=== PATIENT | female | born 1970 | race Caucasian/White ===

== ENCOUNTER → 2019-04-06 14:09 | Outpatient (BNVA) | payer MEDICAID, SELFPAY | PROVIDERS: Family Provider Family Medicine; PCP Family Medicine; Visit Provider Social Worker Clinical | DX: F43.12 Post-traumatic stress disorder, chronic (principal); F40.01 Agoraphobia with panic disorder; F25.0 Schizoaffective disorder, bipolar type | CPT/HCPCS: 90834; 90839 ==

== ENCOUNTER → 2019-04-13 14:44 | Outpatient (BNVA) | payer MEDICAID, SELFPAY | PROVIDERS: Family Provider Family Medicine; PCP Family Medicine; Visit Provider Social Worker Clinical | DX: F43.12 Post-traumatic stress disorder, chronic (principal); F40.01 Agoraphobia with panic disorder; F25.0 Schizoaffective disorder, bipolar type | CPT/HCPCS: 90834 ==

== ENCOUNTER → 2019-04-21 09:43 | Outpatient (BNVA) | payer MEDICAID, SELFPAY | PROVIDERS: Family Provider Family Medicine; PCP Family Medicine; Visit Provider Nurse Practitioner Psychiatric/Mental Health | DX: F25.0 Schizoaffective disorder, bipolar type (principal); F60.3 Borderline personality disorder; F40.01 Agoraphobia with panic disorder; F43.12 Post-traumatic stress disorder, chronic; Z87.820 Personal history of traumatic brain injury | CPT/HCPCS: 99213 ==

== ENCOUNTER → 2019-05-04 14:04 | Outpatient (BNVA) | payer MEDICAID, SELFPAY | PROVIDERS: Family Provider Family Medicine; PCP Family Medicine; Visit Provider Social Worker Clinical | DX: F43.12 Post-traumatic stress disorder, chronic (principal); F40.01 Agoraphobia with panic disorder; F25.0 Schizoaffective disorder, bipolar type | CPT/HCPCS: 90834 ==

== ENCOUNTER → 2019-05-10 10:37 | Outpatient (BNVA) | payer MEDICAID, SELFPAY | PROVIDERS: Family Provider Family Medicine; PCP Family Medicine; Visit Provider Social Worker Clinical | DX: F43.12 Post-traumatic stress disorder, chronic (principal); F40.01 Agoraphobia with panic disorder; F25.0 Schizoaffective disorder, bipolar type | CPT/HCPCS: 90834; 90839 ==

== ENCOUNTER → 2019-05-19 12:51 | Outpatient (BNVA) | payer MEDICAID, SELFPAY | PROVIDERS: Family Provider Family Medicine; PCP Family Medicine; Visit Provider Counselor Professional | DX: F43.12 Post-traumatic stress disorder, chronic (principal); F40.01 Agoraphobia with panic disorder; F25.0 Schizoaffective disorder, bipolar type | CPT/HCPCS: 90834 ==

== ENCOUNTER → 2019-06-16 13:00 | Outpatient (BNVA) | payer MEDICAID, SELFPAY | PROVIDERS: Family Provider Family Medicine; PCP Nurse Practitioner; Visit Provider Counselor Professional | DX: F43.12 Post-traumatic stress disorder, chronic (principal); F40.01 Agoraphobia with panic disorder; F60.3 Borderline personality disorder; F25.0 Schizoaffective disorder, bipolar type; Z87.820 Personal history of traumatic brain injury | CPT/HCPCS: 90834 ==

== ENCOUNTER → 2019-06-30 08:31 | Outpatient (BNVA) | payer MEDICAID, SELFPAY | PROVIDERS: Family Provider Family Medicine; PCP Nurse Practitioner; Visit Provider Counselor Professional | DX: F40.01 Agoraphobia with panic disorder (principal); F43.12 Post-traumatic stress disorder, chronic; F60.3 Borderline personality disorder; F25.0 Schizoaffective disorder, bipolar type | CPT/HCPCS: 90834 ==

== ENCOUNTER → 2019-07-13 08:46 | Outpatient (BNVA) | payer MEDICAID, SELFPAY | PROVIDERS: Family Provider Family Medicine; PCP Nurse Practitioner; Visit Provider Counselor Professional | DX: F43.12 Post-traumatic stress disorder, chronic (principal); F41.0 Panic disorder [episodic paroxysmal anxiety]; F60.3 Borderline personality disorder; F25.0 Schizoaffective disorder, bipolar type | CPT/HCPCS: 90834 ==

== ENCOUNTER → 2019-07-21 13:00 | Outpatient (BNVA) | payer MEDICAID, SELFPAY | PROVIDERS: Family Provider Family Medicine; PCP Nurse Practitioner; Visit Provider Counselor Professional | DX: F60.3 Borderline personality disorder (principal); F40.01 Agoraphobia with panic disorder; F43.12 Post-traumatic stress disorder, chronic; F25.0 Schizoaffective disorder, bipolar type | CPT/HCPCS: 90832 ==

== ENCOUNTER → 2019-08-11 07:48 | Outpatient (BNVA) | payer MEDICAID, SELFPAY | PROVIDERS: Family Provider Family Medicine; Visit Provider Counselor Professional | DX: F60.3 Borderline personality disorder (principal); F40.01 Agoraphobia with panic disorder; F43.12 Post-traumatic stress disorder, chronic; Z87.820 Personal history of traumatic brain injury; Z72.0 Tobacco use | CPT/HCPCS: 90832 ==

== ENCOUNTER → 2019-08-25 08:01 | Outpatient (BNVA) | payer MEDICAID, SELFPAY | PROVIDERS: Family Provider Family Medicine; Visit Provider Counselor Professional | DX: F60.3 Borderline personality disorder (principal); F40.01 Agoraphobia with panic disorder; F43.12 Post-traumatic stress disorder, chronic; Z87.820 Personal history of traumatic brain injury; Z72.0 Tobacco use | CPT/HCPCS: 90834 ==

== ENCOUNTER → 2019-09-06 08:07 | Outpatient (BNVA) | payer MEDICAID, SELFPAY | PROVIDERS: Family Provider Family Medicine; Visit Provider Counselor Professional | DX: F60.3 Borderline personality disorder (principal); F40.01 Agoraphobia with panic disorder; F43.12 Post-traumatic stress disorder, chronic; Z87.820 Personal history of traumatic brain injury; Z72.0 Tobacco use | CPT/HCPCS: 90834 ==

== ENCOUNTER → 2019-09-13 08:09 | Outpatient (BNVA) | payer MEDICAID, SELFPAY | PROVIDERS: Family Provider Family Medicine; Visit Provider Nurse Practitioner Psychiatric/Mental Health | DX: F25.0 Schizoaffective disorder, bipolar type (principal); F60.3 Borderline personality disorder; F40.01 Agoraphobia with panic disorder; F43.12 Post-traumatic stress disorder, chronic; Z87.820 Personal history of traumatic brain injury; F41.1 Generalized anxiety disorder | CPT/HCPCS: 99214 ==

== ENCOUNTER 2019-09-21 14:47 | Outpatient (CLI) | payer MEDICAID, SELFPAY ==
--- NOTE | 2019-09-21 14:53 | MM_ITS ---
WS: [id number] BILATERAL DIGITAL SCREENING MAMMOGRAPHY WITH CAD CLINICAL INFORMATION: SCREENING HISTORY: Screening mammogram. No current complaints. COMPARISON: September 21, 2019 TECHNIQUE: Bilateral CC and MLO views. FINDINGS: Scattered fibroglandular densities bilaterally. No suspicious focal mass, asymmetry, calcifications, or architectural distortion. No evidence of malignancy. MM/[id number] IMPRESSION: BI-RADS: 1-Negative FOLLOW UP: 1 Year Follow-up Recommend return to annual screening mammography.
== END 2019-09-21 14:48 | disposition home or self-care (01) ==
LOC: RADSHAW 14:51
PROVIDERS: PCP Family Medicine; Visit Provider Nurse Practitioner
DX: F25.0 Schizoaffective disorder, bipolar type (principal); F60.3 Borderline personality disorder; F40.01 Agoraphobia with panic disorder; F43.12 Post-traumatic stress disorder, chronic; Z87.820 Personal history of traumatic brain injury
CPT/HCPCS: 90834; 77067; 99213

== ENCOUNTER → 2019-10-05 08:19 | Outpatient (BNVA) | payer MEDICAID, SELFPAY | PROVIDERS: PCP Family Medicine; Visit Provider Counselor Professional | DX: F25.0 Schizoaffective disorder, bipolar type (principal); F60.3 Borderline personality disorder; F40.01 Agoraphobia with panic disorder; F43.12 Post-traumatic stress disorder, chronic; Z87.820 Personal history of traumatic brain injury | CPT/HCPCS: 90834 ==

== ENCOUNTER → 2019-10-16 07:41 | Outpatient (BNVA) | payer MEDICAID, SELFPAY | PROVIDERS: PCP Family Medicine; Visit Provider Nurse Practitioner Psychiatric/Mental Health | DX: F25.0 Schizoaffective disorder, bipolar type (principal); F60.3 Borderline personality disorder; F40.01 Agoraphobia with panic disorder; F43.12 Post-traumatic stress disorder, chronic; Z87.820 Personal history of traumatic brain injury | CPT/HCPCS: 99214 ==

== ENCOUNTER → 2019-11-03 08:00 | Outpatient (BNVA) | payer MEDICAID, SELFPAY | PROVIDERS: PCP Family Medicine; Visit Provider Counselor Professional | DX: F25.0 Schizoaffective disorder, bipolar type (principal); F40.01 Agoraphobia with panic disorder; F60.3 Borderline personality disorder; F43.12 Post-traumatic stress disorder, chronic | CPT/HCPCS: 90832 ==

== ENCOUNTER → 2019-11-14 09:11 | Outpatient (BNVA) | payer MEDICAID, SELFPAY | PROVIDERS: PCP Family Medicine; Visit Provider Nurse Practitioner Psychiatric/Mental Health | DX: F25.0 Schizoaffective disorder, bipolar type (principal); F60.3 Borderline personality disorder; F40.01 Agoraphobia with panic disorder; F17.210 Nicotine dependence, cigarettes, uncomplicated; F43.12 Post-traumatic stress disorder, chronic | CPT/HCPCS: 99213 ==

== ENCOUNTER → 2019-11-16 08:31 | Outpatient (BNVA) | payer MEDICAID, SELFPAY | PROVIDERS: PCP Family Medicine; Visit Provider Counselor Professional | DX: F25.0 Schizoaffective disorder, bipolar type (principal); F40.01 Agoraphobia with panic disorder; F60.3 Borderline personality disorder; F43.12 Post-traumatic stress disorder, chronic; Z87.820 Personal history of traumatic brain injury | CPT/HCPCS: 90834 ==

== ENCOUNTER → 2019-11-17 09:28 | Outpatient (BNVA) | payer MEDICAID, SELFPAY | PROVIDERS: PCP Family Medicine; Visit Provider Family Medicine | DX: L30.4 Erythema intertrigo (principal); E11.69 Type 2 diabetes mellitus with other specified complication; Z12.11 Encounter for screening for malignant neoplasm of colon; Z01.419 Encounter for gynecological examination (general) (routine) without abnormal findings; E78.5 Hyperlipidemia, unspecified; Z68.36 Body mass index [BMI] 36.0-36.9, adult; F17.210 Nicotine dependence, cigarettes, uncomplicated | CPT/HCPCS: 80053; 80061; 82043; 83036; 85007; 85027; 87086; 88175 ==

== ENCOUNTER → 2019-12-01 09:04 | Outpatient (BNVA) | payer MEDICAID, SELFPAY ==
[2019-11-23 15:23] VITALS: BP 125/81; BMI 36.2
== END ==
PROVIDERS: PCP Family Medicine; Visit Provider Counselor Professional
DX: F25.0 Schizoaffective disorder, bipolar type (principal); F40.01 Agoraphobia with panic disorder; F60.3 Borderline personality disorder; F43.12 Post-traumatic stress disorder, chronic
CPT/HCPCS: 90832

== ENCOUNTER → 2019-12-15 08:58 | Outpatient (BNVA) | payer MEDICAID, SELFPAY ==
[2019-11-23 15:23] VITALS: BP 125/81; BMI 36.2
== END ==
PROVIDERS: PCP Family Medicine; Visit Provider Surgery
DX: Z11.59 Encounter for screening for other viral diseases (principal)
CPT/HCPCS: 87635

== ENCOUNTER → 2019-12-26 08:28 | Outpatient (BNVA) | payer MEDICAID, SELFPAY ==
[2019-12-25 12:36] VITALS: BP 125/81; BMI 36.2
== END ==
PROVIDERS: PCP Family Medicine; Visit Provider Nurse Practitioner Psychiatric/Mental Health
DX: F25.0 Schizoaffective disorder, bipolar type (principal); F60.3 Borderline personality disorder; F40.01 Agoraphobia with panic disorder; F17.210 Nicotine dependence, cigarettes, uncomplicated; F43.12 Post-traumatic stress disorder, chronic; Z87.820 Personal history of traumatic brain injury
CPT/HCPCS: 99213

== ENCOUNTER → 2019-12-29 08:42 | Outpatient (BNVA) | payer MEDICAID, SELFPAY ==
[2019-12-25 12:36] VITALS: BP 125/81; BMI 36.2
== END ==
PROVIDERS: PCP Family Medicine; Visit Provider Counselor Professional
DX: F25.0 Schizoaffective disorder, bipolar type (principal); F60.3 Borderline personality disorder; F40.01 Agoraphobia with panic disorder; F43.12 Post-traumatic stress disorder, chronic; Z87.820 Personal history of traumatic brain injury
CPT/HCPCS: 90832

== ENCOUNTER → 2020-01-11 08:00 | Outpatient (BNVA) | payer MEDICAID, SELFPAY ==
[2019-12-25 12:36] VITALS: BP 125/81; BMI 36.2
== END ==
PROVIDERS: PCP Family Medicine; Visit Provider Counselor Professional
DX: F60.3 Borderline personality disorder (principal); F40.01 Agoraphobia with panic disorder; F25.0 Schizoaffective disorder, bipolar type; F43.12 Post-traumatic stress disorder, chronic
CPT/HCPCS: 90832; 90834

== ENCOUNTER → 2020-02-06 08:07 | Outpatient (BNVA) | payer MEDICAID, SELFPAY ==
[2019-12-25 12:36] VITALS: BP 125/81; BMI 36.2
== END ==
PROVIDERS: PCP Family Medicine; Visit Provider Counselor Professional
DX: F60.3 Borderline personality disorder (principal); F25.0 Schizoaffective disorder, bipolar type; F40.01 Agoraphobia with panic disorder; F43.12 Post-traumatic stress disorder, chronic
CPT/HCPCS: 90834

== ENCOUNTER → 2020-02-07 09:10 | Outpatient (BNVA) | payer MEDICAID, SELFPAY ==
[2019-12-25 12:36] VITALS: BP 125/81; BMI 36.2
== END ==
PROVIDERS: PCP Family Medicine; Visit Provider Nurse Practitioner Psychiatric/Mental Health
DX: F25.0 Schizoaffective disorder, bipolar type (principal); F60.3 Borderline personality disorder; F40.01 Agoraphobia with panic disorder; F17.210 Nicotine dependence, cigarettes, uncomplicated; F43.12 Post-traumatic stress disorder, chronic; Z87.820 Personal history of traumatic brain injury
CPT/HCPCS: 99213

== ENCOUNTER → 2020-03-07 07:57 | Outpatient (BNVA) | payer MEDICAID, SELFPAY ==
[2019-12-25 12:36] VITALS: BP 125/81; BMI 36.2
== END ==
PROVIDERS: PCP Family Medicine; Visit Provider Counselor Professional
DX: F25.0 Schizoaffective disorder, bipolar type (principal); F60.3 Borderline personality disorder; F40.01 Agoraphobia with panic disorder; F43.12 Post-traumatic stress disorder, chronic
CPT/HCPCS: 90832

== ENCOUNTER → 2020-03-20 08:01 | Outpatient (BNVA) | payer MEDICAID, SELFPAY ==
[2019-12-25 12:36] VITALS: BP 125/81; BMI 36.2
== END ==
PROVIDERS: PCP Family Medicine; Visit Provider Nurse Practitioner Psychiatric/Mental Health
DX: F25.0 Schizoaffective disorder, bipolar type (principal); F60.3 Borderline personality disorder; F40.01 Agoraphobia with panic disorder; F17.210 Nicotine dependence, cigarettes, uncomplicated; F43.12 Post-traumatic stress disorder, chronic; Z87.820 Personal history of traumatic brain injury; F41.1 Generalized anxiety disorder
CPT/HCPCS: 99213

== ENCOUNTER → 2020-03-22 09:04 | Outpatient (BNVA) | payer MEDICAID, SELFPAY ==
[2019-12-25 12:36] VITALS: BP 125/81; BMI 36.2
== END ==
PROVIDERS: PCP Family Medicine; Visit Provider Counselor Professional
DX: F25.0 Schizoaffective disorder, bipolar type (principal); F60.3 Borderline personality disorder; F40.01 Agoraphobia with panic disorder; F43.12 Post-traumatic stress disorder, chronic; Z87.820 Personal history of traumatic brain injury
CPT/HCPCS: 90834

== ENCOUNTER → 2020-04-10 08:30 | Outpatient (BNVA) | payer MEDICAID, SELFPAY ==
[2019-12-25 12:36] VITALS: BP 125/81; BMI 36.2
== END ==
PROVIDERS: PCP Family Medicine; Visit Provider Counselor Professional
DX: F25.0 Schizoaffective disorder, bipolar type (principal); F60.3 Borderline personality disorder; F40.01 Agoraphobia with panic disorder; F43.12 Post-traumatic stress disorder, chronic; Z87.820 Personal history of traumatic brain injury
CPT/HCPCS: 90834

== ENCOUNTER → 2020-04-15 07:34 | Outpatient (BNVA) | payer MEDICAID, SELFPAY ==
[2019-12-25 12:36] VITALS: BP 125/81; BMI 36.2
== END ==
PROVIDERS: PCP Family Medicine; Visit Provider Nurse Practitioner Psychiatric/Mental Health
DX: F25.0 Schizoaffective disorder, bipolar type (principal); F60.3 Borderline personality disorder; F40.01 Agoraphobia with panic disorder; F43.12 Post-traumatic stress disorder, chronic; Z87.820 Personal history of traumatic brain injury; F17.210 Nicotine dependence, cigarettes, uncomplicated
CPT/HCPCS: 99214

== ENCOUNTER → 2020-05-03 08:13 | Outpatient (BNVA) | payer MEDICAID, SELFPAY ==
[2019-12-25 12:36] VITALS: BP 125/81; BMI 36.2
== END ==
PROVIDERS: PCP Family Medicine; Visit Provider Nurse Practitioner Psychiatric/Mental Health
DX: F25.0 Schizoaffective disorder, bipolar type (principal); F60.3 Borderline personality disorder; F40.01 Agoraphobia with panic disorder; F43.12 Post-traumatic stress disorder, chronic; Z87.820 Personal history of traumatic brain injury; F17.210 Nicotine dependence, cigarettes, uncomplicated; F41.1 Generalized anxiety disorder
CPT/HCPCS: 99214

== ENCOUNTER → 2020-05-09 09:06 | Outpatient (BNVA) | payer MEDICAID, SELFPAY ==
[2019-12-25 12:36] VITALS: BP 125/81; BMI 36.2
== END ==
PROVIDERS: PCP Family Medicine; Visit Provider Counselor Professional
DX: F25.0 Schizoaffective disorder, bipolar type (principal); F60.3 Borderline personality disorder; F40.01 Agoraphobia with panic disorder; F43.12 Post-traumatic stress disorder, chronic; Z87.820 Personal history of traumatic brain injury
CPT/HCPCS: 90832

== ENCOUNTER → 2020-05-22 08:31 | Outpatient (BNVA) | payer MEDICAID, SELFPAY ==
[2019-12-25 12:36] VITALS: BP 125/81; BMI 36.2
== END ==
PROVIDERS: PCP Family Medicine; Visit Provider Nurse Practitioner Psychiatric/Mental Health
DX: F25.0 Schizoaffective disorder, bipolar type (principal); F60.3 Borderline personality disorder; F40.01 Agoraphobia with panic disorder; F17.210 Nicotine dependence, cigarettes, uncomplicated; F43.12 Post-traumatic stress disorder, chronic; Z87.820 Personal history of traumatic brain injury
CPT/HCPCS: 99214

== ENCOUNTER → 2020-05-29 15:22 | Outpatient (BNVA) | payer MEDICAID, SELFPAY ==
[2019-12-25 12:36] VITALS: BP 125/81; BMI 36.2
== END ==
PROVIDERS: PCP Family Medicine; Visit Provider Family Medicine
DX: E11.69 Type 2 diabetes mellitus with other specified complication (principal); M25.511 Pain in right shoulder
CPT/HCPCS: 80053; 80061; 81015; 83036; 85025

== ENCOUNTER → 2020-06-06 07:52 | Outpatient (BNVA) | payer MEDICAID, SELFPAY ==
[2019-12-25 12:36] VITALS: BP 125/81; BMI 36.2
== END ==
PROVIDERS: PCP Family Medicine; Visit Provider Counselor Professional
DX: F60.3 Borderline personality disorder (principal); F25.0 Schizoaffective disorder, bipolar type; F40.01 Agoraphobia with panic disorder; F43.12 Post-traumatic stress disorder, chronic
CPT/HCPCS: 90832

== ENCOUNTER → 2020-06-07 09:19 | Outpatient (BNVA) | payer MEDICAID, SELFPAY ==
[2019-12-25 12:36] VITALS: BP 125/81; BMI 36.2
== END ==
PROVIDERS: PCP Family Medicine; Visit Provider Family Medicine
DX: E83.52 Hypercalcemia (principal)
CPT/HCPCS: 82310; 83970

== ENCOUNTER → 2020-06-20 08:04 | Outpatient (BNVA) | payer MEDICAID, SELFPAY ==
[2019-12-25 12:36] VITALS: BP 125/81; BMI 36.2
== END ==
PROVIDERS: PCP Family Medicine; Visit Provider Nurse Practitioner Psychiatric/Mental Health
DX: F25.0 Schizoaffective disorder, bipolar type (principal); F60.3 Borderline personality disorder; F17.210 Nicotine dependence, cigarettes, uncomplicated; F40.01 Agoraphobia with panic disorder; F43.12 Post-traumatic stress disorder, chronic; Z87.820 Personal history of traumatic brain injury
CPT/HCPCS: 99214

== ENCOUNTER 2020-06-21 10:44 | Outpatient (CLI) | payer MEDICAID, SELFPAY ==
[2019-12-25 12:36] VITALS: BP 125/81; BMI 36.2
[2020-06-21 12:15] LABS: Calcium 11.2 mg/dL (8.5-10.5); Parathyroid Hormone 90.2 pg/mL (15-65)
== END 2020-06-21 10:45 | disposition home or self-care (01) ==
PROVIDERS: PCP Family Medicine; Visit Provider Internal Medicine
DX: E11.69 Type 2 diabetes mellitus with other specified complication (principal); E21.3 Hyperparathyroidism, unspecified; E34.9 Endocrine disorder, unspecified; E83.52 Hypercalcemia
CPT/HCPCS: 36415; 82310; 83970; 99204

== ENCOUNTER 2020-06-23 10:03 | Outpatient (CLI) | payer MEDICAID, SELFPAY ==
[2019-12-25 12:36] VITALS: BP 125/81; BMI 36.2
[2020-06-23 12:09] LABS: Urine Creatinine 52 mg/dL (28-217)
[2020-06-23 12:42] LABS: Total Volume Urine 2925 ml
[2020-06-23 15:30] LABS: Total Volume Urine 2925 ml
[2020-06-23 15:32] LABS: Calcium 24 Hour Urine 99 mg/24hr (100-300); Urine Calcium Result 3.4 mg/dL
== END 2020-06-23 10:04 | disposition home or self-care (01) ==
LOC: LAB 10:12
PROVIDERS: PCP Family Medicine; Visit Provider Internal Medicine
DX: E83.52 Hypercalcemia (principal)
CPT/HCPCS: 82340; 82570

== ENCOUNTER 2020-06-26 14:37 | Outpatient (CLI) | payer MEDICAID, SELFPAY ==
[2019-12-25 12:36] VITALS: BP 125/81; BMI 36.2
--- NOTE | 2020-06-26 15:15 | XR_ITS ---
WS: [id number] SCREENING DEXA SCAN [employer] CLINICAL INFORMATION: hyperparathyroidism r/o osteoporosis COMPARISON: None. FINDINGS: The L1-L4 bone mineral density measures 0.982 g/cm2. This corresponds to a T score score of -1.6 and Z score of -2.4. Left femoral neck bone mineral density measures 0.890 g/cm2. This corresponds to a T score of -0.9 an d Z score of -1.3. Right femoral neck bone mineral density measures 0.942 g/cm2. This corresponds to a T score -0.5of an d Z score of -0.9. Mean femoral neck bone mineral density measures 0.916 g/cm2. This corresponds to a T score of -0.7 an d Z score of -1.1. XR/XR DEXA axial skeleton* [id number] IMPRESSION: Osteopenia Patient's FRAX calculated 10 year probability for major osteoporotic fracture i s 4.3 % and osteoporotic hip fracture is 0.5%.
== END 2020-06-26 14:38 | disposition home or self-care (01) ==
LOC: RADWPI 14:37
PROVIDERS: PCP Family Medicine; Visit Provider Internal Medicine
DX: E21.3 Hyperparathyroidism, unspecified (principal); M85.80 Other specified disorders of bone density and structure, unspecified site
CPT/HCPCS: 77080

== ENCOUNTER → 2020-06-28 08:09 | Outpatient (BNVA) | payer MEDICAID, SELFPAY ==
[2019-12-25 12:36] VITALS: BP 125/81; BMI 36.2
== END ==
PROVIDERS: PCP Family Medicine; Visit Provider Counselor Professional
DX: F25.0 Schizoaffective disorder, bipolar type (principal); F60.3 Borderline personality disorder; F40.01 Agoraphobia with panic disorder; F43.12 Post-traumatic stress disorder, chronic; Z87.820 Personal history of traumatic brain injury
CPT/HCPCS: 90832

== ENCOUNTER → 2020-07-18 08:54 | Outpatient (BNVA) | payer MEDICAID, SELFPAY ==
[2019-12-25 12:36] VITALS: BP 125/81; BMI 36.2
== END ==
PROVIDERS: PCP Family Medicine; Visit Provider Counselor Professional
DX: F25.0 Schizoaffective disorder, bipolar type (principal); F60.3 Borderline personality disorder; F40.01 Agoraphobia with panic disorder; F43.12 Post-traumatic stress disorder, chronic; Z87.820 Personal history of traumatic brain injury; F17.210 Nicotine dependence, cigarettes, uncomplicated
CPT/HCPCS: 90832

== ENCOUNTER → 2020-07-24 07:54 | Outpatient (BNVA) | payer MEDICAID, SELFPAY ==
[2019-12-25 12:36] VITALS: BP 125/81; BMI 36.2
== END ==
PROVIDERS: PCP Family Medicine; Visit Provider Nurse Practitioner Psychiatric/Mental Health
DX: F25.0 Schizoaffective disorder, bipolar type (principal); F60.3 Borderline personality disorder; F40.01 Agoraphobia with panic disorder; F17.210 Nicotine dependence, cigarettes, uncomplicated; F43.12 Post-traumatic stress disorder, chronic
CPT/HCPCS: 99214

== ENCOUNTER → 2020-08-09 09:12 | Outpatient (BNVA) | payer MEDICAID, SELFPAY ==
[2019-12-25 12:36] VITALS: BP 125/81; BMI 36.2
== END ==
PROVIDERS: PCP Family Medicine; Visit Provider Family Medicine
DX: E78.5 Hyperlipidemia, unspecified (principal)
CPT/HCPCS: 80053

== ENCOUNTER → 2020-08-23 08:12 | Outpatient (BNVA) | payer MEDICAID, SELFPAY ==
[2019-12-25 12:36] VITALS: BP 125/81; BMI 36.2
== END ==
PROVIDERS: PCP Family Medicine; Visit Provider Counselor Professional
DX: F25.0 Schizoaffective disorder, bipolar type (principal); F43.12 Post-traumatic stress disorder, chronic; F60.3 Borderline personality disorder; F40.01 Agoraphobia with panic disorder
CPT/HCPCS: 90832

== ENCOUNTER → 2020-09-04 07:49 | Outpatient (BNVA) | payer MEDICAID, SELFPAY ==
[2019-12-25 12:36] VITALS: BP 125/81; BMI 36.2
== END ==
PROVIDERS: PCP Family Medicine; Visit Provider Nurse Practitioner Psychiatric/Mental Health
DX: F25.0 Schizoaffective disorder, bipolar type (principal); F60.3 Borderline personality disorder; F17.210 Nicotine dependence, cigarettes, uncomplicated; F40.01 Agoraphobia with panic disorder; F43.12 Post-traumatic stress disorder, chronic; Z87.820 Personal history of traumatic brain injury
CPT/HCPCS: 99214

== ENCOUNTER → 2020-09-12 08:21 | Outpatient (BNVA) | payer MEDICAID, SELFPAY ==
[2019-12-25 12:36] VITALS: BP 125/81; BMI 36.2
== END ==
PROVIDERS: PCP Family Medicine; Visit Provider Counselor Professional
DX: F25.0 Schizoaffective disorder, bipolar type (principal); F40.01 Agoraphobia with panic disorder; F60.3 Borderline personality disorder; F43.12 Post-traumatic stress disorder, chronic
CPT/HCPCS: 90832

== ENCOUNTER → 2020-10-01 11:17 | Outpatient (BNVA) | payer OTHER, SELFPAY ==
[2019-12-25 12:36] VITALS: BP 125/81; BMI 36.2
== END ==
PROVIDERS: PCP Family Medicine; Visit Provider Nurse Practitioner Psychiatric/Mental Health
DX: F60.3 Borderline personality disorder (principal); Z79.899 Other long term (current) drug therapy
CPT/HCPCS: 80061; 83036

== ENCOUNTER → 2020-10-10 11:13 | Outpatient (BNVA) | payer MEDICAID, SELFPAY ==
[2020-10-03 14:41] VITALS: BP 110/67; BMI 40.1
== END ==
PROVIDERS: PCP Family Medicine; Visit Provider Nurse Practitioner Psychiatric/Mental Health
DX: F25.0 Schizoaffective disorder, bipolar type (principal); F60.3 Borderline personality disorder; F40.01 Agoraphobia with panic disorder; F17.210 Nicotine dependence, cigarettes, uncomplicated; F43.12 Post-traumatic stress disorder, chronic; Z87.820 Personal history of traumatic brain injury
CPT/HCPCS: 99214

== ENCOUNTER 2020-10-15 14:39 | Outpatient (CLI) | payer MEDICAID, SELFPAY ==
[2019-12-25 12:36] VITALS: BP 125/81; BMI 36.2
[2020-10-03 14:41] VITALS: BP 110/67; BMI 40.1
--- NOTE | 2020-10-15 14:45 | MM_ITS ---
WS: [id number] BILATERAL DIGITAL SCREENING MAMMOGRAPHY WITH CAD CLINICAL INFORMATION: SCREENING HISTORY: Screening mammogram. No current complaints. COMPARISON: September 21, 2019 TECHNIQUE: Bilateral CC and MLO views. FINDINGS: Scattered fibroglandular densities bilaterally. A few punctate calcifications left breast. No suspici ous focal mass, asymmetry, calcifications, or architectural distortion. No evidence of malignancy. MM/[id number] IMPRESSION: BI-RADS: 2-Benign FOLLOW UP: 1 Year Follow-up Recommend return to annual screening mammography.
== END 2020-10-15 14:40 | disposition home or self-care (01) ==
LOC: RADSHAW 14:44
PROVIDERS: PCP Family Medicine; Visit Provider Family Medicine
DX: Z12.31 Encounter for screening mammogram for malignant neoplasm of breast (principal)
CPT/HCPCS: 77067

== ENCOUNTER → 2020-10-21 07:29 | Outpatient (BNVA) | payer MEDICAID, SELFPAY ==
[2020-10-03 14:41] VITALS: BP 110/67; BMI 40.1
== END ==
PROVIDERS: PCP Family Medicine; Visit Provider Counselor Professional
DX: F25.0 Schizoaffective disorder, bipolar type (principal); F60.3 Borderline personality disorder; F40.01 Agoraphobia with panic disorder; F43.12 Post-traumatic stress disorder, chronic
CPT/HCPCS: 90832

== ENCOUNTER → 2020-11-21 09:10 | Outpatient (BNVA) | payer MEDICAID, SELFPAY ==
[2020-10-03 14:41] VITALS: BP 110/67; BMI 40.1
== END ==
PROVIDERS: PCP Family Medicine; Visit Provider Nurse Practitioner Psychiatric/Mental Health
DX: F25.0 Schizoaffective disorder, bipolar type (principal); F60.3 Borderline personality disorder; F40.01 Agoraphobia with panic disorder; F17.210 Nicotine dependence, cigarettes, uncomplicated; F43.12 Post-traumatic stress disorder, chronic; Z87.820 Personal history of traumatic brain injury
CPT/HCPCS: 99214

== ENCOUNTER → 2020-12-02 08:13 | Outpatient (BNVA) | payer MEDICAID, SELFPAY ==
[2020-10-03 14:41] VITALS: BP 110/67; BMI 40.1
== END ==
PROVIDERS: PCP Family Medicine; Visit Provider Counselor Professional
DX: F25.0 Schizoaffective disorder, bipolar type (principal); F60.3 Borderline personality disorder; F40.01 Agoraphobia with panic disorder; F43.12 Post-traumatic stress disorder, chronic; Z87.820 Personal history of traumatic brain injury; F17.210 Nicotine dependence, cigarettes, uncomplicated
CPT/HCPCS: 90832

== ENCOUNTER → 2020-12-26 07:25 | Outpatient (BNVA) | payer MEDICAID, SELFPAY ==
[2020-10-03 14:41] VITALS: BP 110/67; BMI 40.1
== END ==
PROVIDERS: PCP Family Medicine; Visit Provider Counselor Professional
DX: F25.0 Schizoaffective disorder, bipolar type (principal); F60.3 Borderline personality disorder; F40.10 Social phobia, unspecified; F43.12 Post-traumatic stress disorder, chronic; Z87.820 Personal history of traumatic brain injury; F17.210 Nicotine dependence, cigarettes, uncomplicated
CPT/HCPCS: 90832

== ENCOUNTER → 2020-12-27 13:47 | Outpatient (BNVA) | payer MEDICAID, SELFPAY ==
[2020-10-03 14:41] VITALS: BP 110/67; BMI 40.1
== END ==
PROVIDERS: PCP Family Medicine; Visit Provider Family Medicine
DX: E78.5 Hyperlipidemia, unspecified (principal); E21.3 Hyperparathyroidism, unspecified; E34.9 Endocrine disorder, unspecified; E11.69 Type 2 diabetes mellitus with other specified complication; Z68.41 Body mass index [BMI] 40.0-44.9, adult; F17.219 Nicotine dependence, cigarettes, with unspecified nicotine-induced disorders
CPT/HCPCS: 80053; 80061; 82310; 83036; 83970

== ENCOUNTER → 2021-01-02 09:10 | Outpatient (BNVA) | payer MEDICAID, SELFPAY ==
[2020-10-03 14:41] VITALS: BP 110/67; BMI 40.1
== END ==
PROVIDERS: PCP Family Medicine; Visit Provider Nurse Practitioner Psychiatric/Mental Health
DX: F25.0 Schizoaffective disorder, bipolar type (principal); F40.01 Agoraphobia with panic disorder; F43.12 Post-traumatic stress disorder, chronic; F60.3 Borderline personality disorder; F17.210 Nicotine dependence, cigarettes, uncomplicated
CPT/HCPCS: 99214

== ENCOUNTER 2021-01-06 09:25 | Outpatient (CLI) | payer MEDICAID, SELFPAY ==
[2020-10-03 14:41] VITALS: BP 110/67; BMI 40.1
--- NOTE | 2021-01-06 09:54 | ECG_ITS ---
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
== END 2021-01-06 09:26 | disposition home or self-care (01) ==
LOC: RAD 09:33 → RT 09:35
PROVIDERS: PCP Family Medicine; Visit Provider Nurse Practitioner Psychiatric/Mental Health
DX: Z79.899 Other long term (current) drug therapy (principal)
CPT/HCPCS: 93005

== ENCOUNTER → 2021-01-30 10:04 | Outpatient (BNVA) | payer MEDICAID, SELFPAY ==
[2020-10-03 14:41] VITALS: BP 110/67; BMI 40.1
== END ==
PROVIDERS: PCP Family Medicine; Visit Provider Nurse Practitioner Psychiatric/Mental Health
DX: F25.0 Schizoaffective disorder, bipolar type (principal); F60.3 Borderline personality disorder; F17.210 Nicotine dependence, cigarettes, uncomplicated; F40.01 Agoraphobia with panic disorder; F43.12 Post-traumatic stress disorder, chronic; Z87.820 Personal history of traumatic brain injury
CPT/HCPCS: 99214

== ENCOUNTER → 2021-04-01 09:41 | Outpatient (BNVA) | payer MEDICAID, SELFPAY ==
[2020-10-03 14:41] VITALS: BP 110/67; BMI 40.1
== END ==
PROVIDERS: PCP Family Medicine; Visit Provider Counselor Mental Health
DX: F60.3 Borderline personality disorder (principal); F25.9 Schizoaffective disorder, unspecified
CPT/HCPCS: 90832

== ENCOUNTER → 2021-04-23 07:47 | Outpatient (BNVA) | payer MEDICAID, SELFPAY ==
[2020-10-03 14:41] VITALS: BP 110/67; BMI 40.1
== END ==
PROVIDERS: PCP Family Medicine; Visit Provider Nurse Practitioner Psychiatric/Mental Health
DX: F25.0 Schizoaffective disorder, bipolar type (principal); F60.3 Borderline personality disorder; F40.01 Agoraphobia with panic disorder; F17.210 Nicotine dependence, cigarettes, uncomplicated; F43.12 Post-traumatic stress disorder, chronic; Z87.820 Personal history of traumatic brain injury
CPT/HCPCS: 99214

== ENCOUNTER → 2021-05-13 09:04 | Outpatient (BNVA) | payer MEDICAID, SELFPAY ==
[2020-10-03 14:41] VITALS: BP 110/67; BMI 40.1
== END ==
PROVIDERS: PCP Family Medicine; Visit Provider Counselor Mental Health
DX: F25.0 Schizoaffective disorder, bipolar type (principal); F60.3 Borderline personality disorder; F43.12 Post-traumatic stress disorder, chronic
CPT/HCPCS: 90832

== ENCOUNTER → 2021-05-27 13:00 | Outpatient (BNVA) | payer MEDICAID, SELFPAY ==
[2020-10-03 14:41] VITALS: BP 110/67; BMI 40.1
== END ==
PROVIDERS: PCP Family Medicine; Visit Provider Counselor Mental Health
DX: F25.0 Schizoaffective disorder, bipolar type (principal); F60.3 Borderline personality disorder; F43.12 Post-traumatic stress disorder, chronic
CPT/HCPCS: 90834

== ENCOUNTER → 2021-06-04 07:24 | Outpatient (BNVA) | payer MEDICAID, SELFPAY ==
[2020-10-03 14:41] VITALS: BP 110/67; BMI 40.1
== END ==
PROVIDERS: PCP Family Medicine; Visit Provider Nurse Practitioner Psychiatric/Mental Health
DX: F25.0 Schizoaffective disorder, bipolar type (principal); F60.3 Borderline personality disorder; F40.01 Agoraphobia with panic disorder; F17.210 Nicotine dependence, cigarettes, uncomplicated; F43.12 Post-traumatic stress disorder, chronic
CPT/HCPCS: 99214

== ENCOUNTER → 2021-06-10 09:42 | Outpatient (BNVA) | payer MEDICAID, SELFPAY ==
[2020-10-03 14:41] VITALS: BP 110/67; BMI 40.1
== END ==
PROVIDERS: PCP Family Medicine; Visit Provider Counselor Mental Health
DX: F25.0 Schizoaffective disorder, bipolar type (principal); F60.3 Borderline personality disorder; F43.12 Post-traumatic stress disorder, chronic
CPT/HCPCS: 90834

== ENCOUNTER → 2021-06-17 10:00 | Outpatient (BNVA) | payer MEDICAID, SELFPAY ==
[2020-10-03 14:41] VITALS: BP 110/67; BMI 40.1
== END ==
PROVIDERS: PCP Family Medicine; Visit Provider Counselor Mental Health
DX: F25.0 Schizoaffective disorder, bipolar type (principal); F60.3 Borderline personality disorder; F43.12 Post-traumatic stress disorder, chronic
CPT/HCPCS: 90834

== ENCOUNTER → 2021-06-19 10:53 | Outpatient (BNVA) | payer MEDICAID, SELFPAY ==
[2020-10-03 14:41] VITALS: BP 110/67; BMI 40.1
== END ==
PROVIDERS: PCP Family Medicine; Visit Provider Family Medicine
DX: E11.69 Type 2 diabetes mellitus with other specified complication (principal)
CPT/HCPCS: 80053; 82043; 83036; 85025

== ENCOUNTER → 2021-07-01 12:42 | Outpatient (BNVA) | payer MEDICAID, SELFPAY ==
[2020-10-03 14:41] VITALS: BP 110/67; BMI 40.1
== END ==
PROVIDERS: PCP Family Medicine; Visit Provider Counselor Mental Health
DX: F25.0 Schizoaffective disorder, bipolar type (principal); F60.3 Borderline personality disorder; F43.12 Post-traumatic stress disorder, chronic
CPT/HCPCS: 90834

== ENCOUNTER → 2021-07-02 11:13 | Outpatient (BNVA) | payer MEDICAID, SELFPAY ==
[2020-10-03 14:41] VITALS: BP 110/67; BMI 40.1
== END ==
PROVIDERS: PCP Family Medicine; Visit Provider Nurse Practitioner Psychiatric/Mental Health
DX: F25.0 Schizoaffective disorder, bipolar type (principal); F40.01 Agoraphobia with panic disorder; F43.12 Post-traumatic stress disorder, chronic; F17.210 Nicotine dependence, cigarettes, uncomplicated; F60.3 Borderline personality disorder; Z87.820 Personal history of traumatic brain injury
CPT/HCPCS: 99214

== ENCOUNTER → 2021-07-22 12:44 | Outpatient (BNVA) | payer MEDICAID, SELFPAY ==
[2020-10-03 14:41] VITALS: BP 110/67; BMI 40.1
== END ==
PROVIDERS: PCP Family Medicine; Visit Provider Counselor Mental Health
DX: F25.0 Schizoaffective disorder, bipolar type (principal); F43.12 Post-traumatic stress disorder, chronic; F60.3 Borderline personality disorder
CPT/HCPCS: 90834

== ENCOUNTER → 2021-08-05 14:18 | Outpatient (BNVA) | payer MEDICAID, SELFPAY ==
[2020-10-03 14:41] VITALS: BP 110/67; BMI 40.1
== END ==
PROVIDERS: PCP Family Medicine; Visit Provider Counselor Mental Health
DX: F25.0 Schizoaffective disorder, bipolar type (principal); F60.3 Borderline personality disorder; F43.12 Post-traumatic stress disorder, chronic
CPT/HCPCS: 90832

== ENCOUNTER → 2021-08-14 13:36 | Outpatient (BNVA) | payer MEDICAID, SELFPAY ==
[2020-10-03 14:41] VITALS: BP 110/67; BMI 40.1
== END ==
PROVIDERS: PCP Family Medicine; Visit Provider Nurse Practitioner Psychiatric/Mental Health
DX: F25.0 Schizoaffective disorder, bipolar type (principal); F60.3 Borderline personality disorder; F40.01 Agoraphobia with panic disorder; F43.12 Post-traumatic stress disorder, chronic; Z87.820 Personal history of traumatic brain injury; F17.210 Nicotine dependence, cigarettes, uncomplicated
CPT/HCPCS: 99214

== ENCOUNTER → 2021-09-02 12:41 | Outpatient (BNVA) | payer MEDICAID, SELFPAY ==
[2020-10-03 14:41] VITALS: BP 110/67; BMI 40.1
== END ==
PROVIDERS: PCP Family Medicine; Visit Provider Counselor Mental Health
DX: F25.0 Schizoaffective disorder, bipolar type (principal); F60.3 Borderline personality disorder; F43.12 Post-traumatic stress disorder, chronic
CPT/HCPCS: 90832

== ENCOUNTER → 2021-09-30 12:42 | Outpatient (BNVA) | payer MEDICAID, SELFPAY ==
[2020-10-03 14:41] VITALS: BP 110/67; BMI 40.1
== END ==
PROVIDERS: PCP Family Medicine; Visit Provider Counselor Mental Health
DX: F25.0 Schizoaffective disorder, bipolar type (principal); F60.3 Borderline personality disorder; F43.12 Post-traumatic stress disorder, chronic
CPT/HCPCS: 90834

== ENCOUNTER → 2021-11-13 10:35 | Outpatient (BNVA) | payer MEDICAID, SELFPAY ==
[2020-10-03 14:41] VITALS: BP 110/67; BMI 40.1
== END ==
PROVIDERS: PCP Family Medicine; Visit Provider Family Medicine
DX: E11.69 Type 2 diabetes mellitus with other specified complication (principal); E78.5 Hyperlipidemia, unspecified
CPT/HCPCS: 80053; 80061; 83036

== ENCOUNTER → 2022-06-08 15:21 | Outpatient (BNVA) | payer MEDICAID, SELFPAY ==
[2020-10-03 14:41] VITALS: BP 110/67; BMI 40.1
== END ==
PROVIDERS: PCP Family Medicine; Visit Provider Family Medicine
DX: E11.69 Type 2 diabetes mellitus with other specified complication (principal); L02.91 Cutaneous abscess, unspecified
CPT/HCPCS: 80053; 82043; 83036; 85025

== ENCOUNTER 2022-07-23 12:34 | Outpatient (CLI) | payer MEDICAID, SELFPAY ==
[2020-10-03 14:41] VITALS: BP 110/67; BMI 40.1
--- NOTE | 2022-07-23 12:46 | CT_ITS ---
WS: [id number] LDCT LUNG CANCER SCREENING HISTORY: SCREENING TECHNIQUE: Axial imaging performed from the apices to 1 cm below the costophrenic angles. Coronal and sagittal reformats are submitted with axial MIP series. All CT scans at [facility] use at least one of these dose optimization techniques: automated exposure control; mA and/or kV adjustment per patient size (includes targeted exams where dose is matched to clinical indication); or iterativ e reconstruction. DLP: 126.09 mGy.cm DIvol: Mean CTDIvol: 2.90 (mGy) COMPARISON: 06/04/2005 Diagnostic quality: Satisfactory Lungs: 4 mm noncalcified nodule RIGHT apex. 4 mm nodule, noncalcified RIGHT lower lobe. There are add itional bilateral pleural and subpleural nodules at the lung bases. These nodules measure up to 5 mm. No endobronchial lesions. Heart: Normal size heart with no pericardial effusion.. No pericardial effusion. Other findings: No mediastinum or hilar adenopathy. Normal size heart. No pericardial or pleural effu sions. Mild hepatic steatosis. No adrenal mass. CT/CT lung screening [id number] IMPRESSION: LUNG-RADS: 3-Probably Benign FOLLOW UP: 6 Month LDCT OTHER FINDINGS (S MODIFIER): None.
== END 2022-07-23 12:35 | disposition home or self-care (01) ==
LOC: RAD 12:37
PROVIDERS: PCP Family Medicine; Visit Provider Family Medicine
DX: Z12.2 Encounter for screening for malignant neoplasm of respiratory organs (principal)
CPT/HCPCS: 71271

== ENCOUNTER 2022-11-05 13:00 | Outpatient (CLI) | payer MEDICAID, SELFPAY ==
[2020-10-03 14:41] VITALS: BP 110/67; BMI 40.1
--- NOTE | 2022-11-05 13:29 | MM_ITS ---
WS: [id number] Bilateral screening 3D tomosynthesis digital mammogram, 11/05/2022 Clinical Data: SCREENING Comparison: 05/18/2020, 09/21/2019 Findings: The breast parenchymal pattern shows fibroglandular tissue. No spiculated masses or clustered calcifi cations are seen. There are no secondary signs of carcinoma. There are small lymph nodes in both axil la. MM/[place] [id number] Impression: 1. Negative bilateral mammogram unchanged. 2. Recommend annual screening mammograms. BIRADS: 1-Negative FOLLOW UP: 1 Year Follow-up The CAD cloth checker was used.
== END 2022-11-05 13:01 | disposition home or self-care (01) ==
LOC: RAD 13:01
PROVIDERS: PCP Family Medicine; Visit Provider Family Medicine
DX: Z12.31 Encounter for screening mammogram for malignant neoplasm of breast (principal)
CPT/HCPCS: 77063; 77067

== ENCOUNTER → 2023-05-11 13:20 | Outpatient (BNVA) | payer MEDICAID, SELFPAY ==
[2020-10-03 14:41] VITALS: BP 110/67; BMI 40.1
== END ==
PROVIDERS: PCP Family Medicine; Visit Provider Family Medicine
DX: E11.69 Type 2 diabetes mellitus with other specified complication (principal); Z23 Encounter for immunization; J20.8 Acute bronchitis due to other specified organisms; B96.89 Other specified bacterial agents as the cause of diseases classified elsewhere; Z79.899 Other long term (current) drug therapy
CPT/HCPCS: 80053; 80061; 82043; 83036; 85025

== ENCOUNTER 2023-05-31 14:56 | Outpatient (CLI) | payer MEDICAID, SELFPAY ==
[2020-10-03 14:41] VITALS: BP 110/67; BMI 40.1
--- NOTE | 2023-05-31 15:30 | CT_ITS ---
WS: [id number] CT chest w con* [id number] HISTORY: pulmonary nodules TECHNIQUE: Axial imaging performed through the thorax. Coronal and sagittal reformats are submitted. All CT scans at [facility] use at least one of these dose optimization techniques: automated exposure control; mA and/or kV adjustment per patient size (includes targeted exams where dose is mat ched to clinical indication); or iterative reconstruction. CONTRAST: Omnipaque 350; 100 mL IV. DLP: 511.94 mGy.cm COMPARISON: Lung screening 07/23/2022 Lungs and central airway: Moderate pulmonary hyperexpansion from emphysema. Numerous pulmonary nodule s are reidentified within each lung. These nodules have not changed in size since 07/23/2022. Some of these nodules were also present on the study from 2005. The largest nodule is 8 mm at the LEFT lung b ase, image 44 of series 4. There are no new or enlarging nodules. No pneumonia. Pleura: Normal. No pleural effusion. Heart and pericardium: Normal size heart with no pericardial effusion. Mediastinum and anthony: No mediastinum or hilar adenopathy. Vessels: Normal size aortic and pulmonary artery. No coronary artery calcifications. Chest wall and lower neck: No soft tissue masses. Upper abdomen: Hepatic steatosis. Hepatic granulomata. Normal portal vein. No adrenal mass. Osseous structures: No destructive process. IMPRESSION: 1. Numerous bilateral, subcentimeter pulmonary nodules are reidentified. No increase in size or new nodule since 07/23/2022. Some of these nodules were also present in 2006. To document continued long-t erm stability of the nodule since 07/23/2022 recommend 1 additional 12-month follow-up chest CT. 2. Chronic emphysema. 3. No adenopathy.
[2023-05-31] MEDS: iohexol 350 mg/mL 100 mL Btl IV (15:42)
== END 2023-05-31 14:57 | disposition home or self-care (01) ==
LOC: RAD 14:57
PROVIDERS: PCP Family Medicine; Visit Provider Family Medicine
DX: R91.8 Other nonspecific abnormal finding of lung field (principal); J43.9 Emphysema, unspecified
CPT/HCPCS: 71260; Q9967

== ENCOUNTER → 2023-11-15 13:58 | Outpatient (BNVA) | payer MEDICAID, SELFPAY ==
[2020-10-03 14:41] VITALS: BP 110/67; BMI 40.1
== END ==
DX: Z12.39 Encounter for other screening for malignant neoplasm of breast (principal); E11.69 Type 2 diabetes mellitus with other specified complication
CPT/HCPCS: 80053; 83036

== ENCOUNTER 2023-12-06 14:48 | Emergency (ER) | payer MEDICAID, SELFPAY ==
[2020-10-03 14:41] VITALS: BP 110/67; BMI 40.1
[2023-12-06] VITALS (8 sets, daily range): BP systolic 84–124; BP diastolic 53–77; PULSE 58–73; RESP 10–21; TEMP 36.4; O2SAT 94–100
--- NOTE | 2023-12-06 14:49 | ECG_ITS ---
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 Measurements Intervals [place] Rate: 66 P: 27 AR: 139 QRS: 63 QRSD: 97 T: 53 QT: 396 QTc: 416 Interpretive Statements SINUS RHYTHM Compared to ECG 01/06/2021 09:55:03 No significant changes Electronically Signed On 12-06-2023 18:07:40 CDT by Romel Pink M.D. [email or web address] community hospitalObihai Technologyguernsey memorial [facility].Fluther/store/[id number]
--- NOTE | 2023-12-06 15:04 | XRR_ITS ---
PROCEDURE INFORMATION: Exam: XR Chest Exam date and time: 12/06/2023 3:06 PM Age: 53 years old Clinical indication: Pain; Chest pressure; Prior surgery; Surgery date: 6+ months; Surgery type: Port; Additional info: Chest pain TECHNIQUE: Imaging protocol: Radiologic exam of the chest. Views: 1 view. COMPARISON: CT chest w con* [id number] 05/31/2023 3:35 PM FINDINGS: Lungs: Unremarkable. No consolidation. Pleural spaces: Unremarkable. No pleural effusion. No pneumothorax. Heart/Mediastinum: Unremarkable. No cardiomegaly. Bones/joints: Unremarkable. XR/XR chest 1V portable [id number] IMPRESSION: No acute findings.
--- NOTE | 2023-12-06 15:05 | W.ED.CHESTPA ---
Documented by User: Federico Christopher DO 12/07/23 05:51 HPI - Chest Pain General: Chief Complaint: Chest Pain Stated Complaint: Chest Pain, dizzy, SOB Time Seen by Provider: 12/06/23 15:04 History of Present Illness: 53-year-old female presents emergency room with complaint of chest pain worse with a deep breath associated with some shortness of breath and dizziness as well. No fever sweats or chills no productive cough. He does have a history of diabetes mellitus no known history of coronary artery disease Associated symptoms: Deny abdominal pain, dyspnea or fever(s) Related Data Home Medications Medication Instructions Recorded Confirmed fluticasone propionate 50 2 spray intranasal DAILY PRN 05/11/19 11/15/23 mcg/actuation nasal Allergy Symptoms spray,suspension Previous Rx's Medication Instructions Recorded blood sugar diagnostic (OneTouch #100 ea 01/30/21 Ultra Test strips) blood sugar diagnostic #100 ea 08/12/21 blood sugar diagnostic (OneTouch #100 ea 01/11/23 Ultra Test strips) Lancets #100 ea 04/14/23 simvastatin 20 mg tablet See Rx Instructions .Route 05/12/23 .COMPLEX #90 tabs ibuprofen 800 mg tablet See Rx Instructions .Route 05/18/23 .COMPLEX #90 tabs tiotropium bromide 18 mcg capsule 1 cap inhalation DAILY #60 06/14/23 with inhalation device (Spiriva inhalations with HandiHaler) lorazepam 1 mg tablet (Ativan) 1 mg PO BID PRN anxiety #60 tabs 07/05/23 topiramate 50 mg tablet (Topamax) 50 mg PO .evening #30 tabs 10/28/23 ziprasidone HCl 80 mg capsule 80 mg PO BID #60 caps 10/28/23 (Geodon) glipizide 5 mg tablet, extended See Rx Instructions .Route 11/05/23 release 24 hr .COMPLEX #30 tabs trazodone 150 mg tablet 150 mg PO BEDTIME PRN insomnia #60 11/09/23 tabs Allergies Allergy/AdvReac Type Severity Reaction Status Date / Time acetaminophen [From Vicodin] Allergy ALGY-Bliste Verified 12/06/23 14:59 r aspirin Allergy Unknown Verified 12/06/23 14:59 chlorpromazine Allergy Unknown Verified 12/06/23 14:59 [From Thorazine] citalopram [From Celexa] Allergy Unknown Verified 12/06/23 14:59 codeine Allergy Unknown Verified 12/06/23 14:59 fluoxetine [From Prozac] Allergy Unknown Verified 12/06/23 14:59 hydrocodone [From Vicodin] Allergy ALGY-Bliste Verified 12/06/23 14:59 r latex Allergy Unknown Verified 12/06/23 14:59 paroxetine [From Paxil] Allergy Unknown Verified 12/06/23 14:59 Penicillins Allergy Unknown Verified 12/06/23 14:59 Sulfa (Sulfonamide Allergy Unknown Verified 12/06/23 14:59 Antibiotics) venlafaxine [From Effexor] Allergy Unknown Verified 12/06/23 14:59 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 Uncoded 12/06/23 14:59 Review of Systems Const: Denies: fever(s) or chills Card: Reports: chest pain and dyspnea on exertion Resp: Denies: dyspnea GI: Denies: abdominal pain : Denies: dysuria, urinary frequency or urinary urgency Musc: Denies: neck pain or back pain Skin/Breast: Denies: rash PFSH ED PFSH: Medical History Screening for breast cancer Psychiatric care Psychiatric care Nicotine dependence, cigarettes, uncomplicated Peripheral neuropathy due to chemotherapy GERD (gastroesophageal reflux disease) Lymphoma Tobacco abuse Family history of abdominal aortic aneurysm (AAA) Type 2 diabetes mellitus with other specified complication Personal history of traumatic brain injury Chronic post-traumatic stress disorder Panic disorder with agoraphobia Borderline personality disorder Schizoaffective disorder, bipolar type Surgical History Hx of tonsillectomy Hx of tubal ligation Hx of lymph node biopsy Hx of section Family History Other Alzheimer disease Aneurysm of abdominal aorta Cancer Diabetes Heart murmur Multiple personality disorder Stroke Social History Smoking and tobacco/nicotine status: current every day tobacco/nicotine user Quit status (tobacco/nicotine): has tried quititng Second hand smoke exposure: Yes (mother) Alcohol intake: former Substance/Drug Use: never Adopted: No Caregiver/support person: No Lives independently: Yes (mother lives with her) Household members: family and friend(s) Housing: Apartment Marital status: Number of children: 3 Number of grandchildren: 11 Highest education level completed: 8th Grade service: No Current occupational status: disabled Pets and animals: No Leisure activites: games, fishing and other Leisure activities details: camping, sol Sexually active: No Do you think of yourself as: Straight/Heterosexual Current gender identity: Female Yin/Rastafarian: Evangelical Special yin needs: No Agree to transfusion: Yes Female Reproductive History: Para: 3 Physical Exam Const: COMMON NORMALS: no acute distress GENERAL APPEARANCE: cooperative and comfortable ORIENTATION/CONSCIOUSNESS: Yes awake, Yes oriented to person, Yes oriented to place and Yes oriented to time HENMT: COMMON NORMALS: normocephalic, atraumatic and hearing grossly normal bilaterally HEAD & SCALP: normocephalic and atraumatic Resp: COMMON NORMALS: normal respiratory effort, No retractions, No use of accessory muscles and clear to auscultation bilaterally AUSCULTATION: clear to auscultation bilaterally Cardio: COMMON NORMALS: regular rate, regular rhythm and No murmurs present (Cardio) RATE: regular rate RHYTHM: regular rhythm GI: COMMON NORMALS: Soft to palpation and No hepatosplenomegaly present AUSCULTATION: Yes normoactive bowel sounds PALPATION: Yes Soft to palpation, No Tenderness to palpation present (GI), No Guarding due to palpation present (GI) and Yes No hepatosplenomegaly present Extremity: COMMON NORMALS: normal to inspection, capillary refill normal, no clubbing, cyanosis or edema, no calf tenderness and no pedal edema Neuro: SENSORIUM/ORIENTATION: Yes oriented to person, Yes oriented to place and Yes oriented to time Skin: COMMON NORMALS: no rashes or lesions noted GENERAL SKIN EXAM: no rashes or lesions noted Course Vital Signs: Vital signs: Vital Signs Temperature 97.5 F L 12/06/23 14:55 Pulse Rate 72 12/06/23 20:00 Respiratory Rate 21 H 12/06/23 20:00 Blood Pressure 124/66 12/06/23 20:00 Pulse Oximetry 99 12/06/23 20:00 Oxygen Delivery Me thod Room Air 12/06/23 20:00 MDM - Chest Pain Medical Decision Making Care signed out to Dr. Patel at change of shift. See final notes for diagnosis and disposition. Lab Data 12/06/23 16:45 12/06/23 16:45 Radiology Impressions Chest X-Ray 12/06/23 15:04 IMPRESSION: No acute findings. Laboratory Results WBC 11.07 10^3/uL (3.29-11.43) 12/06/23 16:45 RBC 4.92 10^6/uL (3.85-5.65) 12/06/23 16:45 Hgb 14.80 g/dL (11.27-16.99) 12/06/23 16:45 Hct 45.7 % (36-47) 12/06/23 16:45 MCV 92.9 fl (85-98) 12/06/23 16:45 MCH 30.1 pg (27-33) 12/06/23 16:45 MCHC 32.4 g/dL (30-55) 12/06/23 16:45 RDW 13.5 % (12.1-15.1) 12/06/23 16:45 Plt Count 217 10^3/cmm (157-399) 12/06/23 16:45 MPV 10.0 fL (7.4-10.4) 12/06/23 16:45 Neut % (Auto) 72.0 % 12/06/23 16:45 Lymph % (Auto) 19.3 % 12/06/23 16:45 [place] % (Auto) 6.1 % 12/06/23 16:45 Eos % (Auto) 1.8 % 12/06/23 16:45 Baso % (Auto) 0.4 % 12/06/23 16:45 Neut # (Auto) 7.97 10^3/uL (1.8-7.7) H 12/06/23 16:45 Lymph # (Auto) 2.1 10^3/uL (0.8-4.8) 12/06/23 16:45 [place] # (Auto) 0.7 10^3/uL (0.2-0.9) 12/06/23 16:45 Eos # (Auto) 0.2 10^3/uL (0.0-0.8) 12/06/23 16:45 Baso # (Auto) 0.0 10^3/uL (0.0-0.1) 12/06/23 16:45 Nucleated RBC % (auto) 0 % 12/06/23 16:45 Nucleated RBCs # 0.0 /100WBC 12/06/23 16:45 Sodium 139 mmol/L (136-145) 12/06/23 16:45 Potassium 3.8 mmol/L (3.5-5.1) 12/06/23 16:45 Chloride 106 mmol/L (98-107) 12/06/23 16:45 Carbon Dioxide 22 mmol/L (22-29) 12/06/23 16:45 Anion Gap 14.8 (5-19) 12/06/23 16:45 BUN 9 mg/dL (6-20) 12/06/23 16:45 Creatinine 0.8 mg/dL (0.5-0.9) 12/06/23 16:45 GFR Calculation 74.7 mL/min (90-130) L 12/06/23 16:45 Glucose 110 mg/dL (65-115) 12/06/23 16:45 Calculated Osmolality 287 mOsm/kg (285-295) 12/06/23 16:45 Calcium 10.7 mg/dL (8.5-10.5) H 12/06/23 16:45 Total Bilirubin 0.3 mg/dL (0.15-1.2) 12/06/23 16:45 AST 10 U/L (0-32) 12/06/23 16:45 ALT 11 U/L (0-33) 12/06/23 16:45 Alkaline Phosphatase 112 U/L (35-105) H 12/06/23 16:45 Troponin T Baseline < 6 ng/L (0-10) 12/06/23 16:45 Troponin T 120 Minute 6.00 ng/L (0-10) 12/06/23 19:11 Delta Troponin T 0.38263 ABS# (0-10) 12/06/23 19:11 Total Protein 6.5 g/dL (6.6-8.7) L 12/06/23 16:45 Albumin 3.9 g/dL (3.5-5.2) 12/06/23 16:45 Globulin 2.6 g/dL (1.3-4.6) 12/06/23 16:45 Clincial Decision Support The following clinical decision support tools were used to aid in care of the patient HEART Score -> History: Slightly Suspicous, EKG: Normal, Age: 45-64 yrs, Risk Factors: 1 or 2 Risk Factors, Troponin: Baseline Trop <16 ng/L. Resulting HEART Score: 2. Discharge Plan Discharge Patient Disposition: Home Clinical Impression: Chest pain Qualifiers: Chest pain type: unspecified Qualified Code(s): R07.9 - Chest pain, unspecified Condition: Stable Prescriptions: No Action fluticasone propionate 50 mcg/actuation spray,suspension 2 spray INTRANASAL DAILY PRN (Reason: Allergy Symptoms) (DME) OneTouch Ultra Test Strip See Rx Instructions .Route Qty: 100 0RF Rx Instructions: As directed lorazepam [Ativan] 1 mg tablet 1 mg PO BID PRN (Reason: anxiety) Qty: 60 3RF Rx Instructions: Take one tablet twice per day as needed for anxiety glipizide 5 mg tablet extended release 24hr See Rx Instructions .ROUTE .COMPLEX Qty: 30 0RF Dose Instruction: TAKE 1 TABLET BY MOUTH EVERY DAY Rx Instructions: TAKE 1 TABLET BY MOUTH EVERY DAY tiotropium bromide [Spiriva with HandiHaler] 18 mcg capsule, w/inhalation device 1 cap inhalation DAILY Qty: 60 5RF Rx Instructions: puncture 1 cap using device; one dose = 2 inhalations trazodone 150 mg tablet 150 mg PO BEDTIME PRN (Reason: insomnia) Qty: 60 3RF Rx Instructions: May take one tablet at bedtime as needed for sleep, may repeat dose in 1 hour if not asleep (DME) OneTouch Ultra Blue Test Strip Strip See Rx Instructions .ROUTE .MEDSUPPLY Qty: 100 0RF Rx Instructions: three times a week (DME) OneTouch Ultra Test Strip See Rx Instructions .ROUTE .COMPLEX Qty: 100 0RF Dose Instruction: USE DIRECTED Rx Instructions: USE DIRECTED ([facility] [place]) Lancets See Rx Instructions .Route .MEDSUPPLY Qty: 100 0RF Rx Instructions: Use daily for blood glucose testing simvastatin 20 mg tablet See Rx Instructions .ROUTE .COMPLEX Qty: 90 1RF Dose Instruction: TAKE 1 TABLET BY MOUTH EVERY DAY Rx Instructions: TAKE 1 TABLET BY MOUTH EVERY DAY ibuprofen 800 mg tablet See Rx Instructions .ROUTE .COMPLEX Qty: 90 0RF Dose Instruction: TAKE 1 TABLET BY MOUTH THREE TIMES DAILY NEEDED FOR PAIN *take with food* Rx Instructions: TAKE 1 TABLET BY MOUTH THREE TIMES DAILY NEEDED FOR PAIN *take with food* ziprasidone HCl [Geodon] 80 mg capsule 80 mg PO BID Qty: 60 6RF Rx Instructions: Take one capsule in am and evening with supper (500 calories each meal) topiramate [Topamax] 50 mg tablet 50 mg PO .evening Qty: 30 6RF Rx Instructions: Take one tablet every evening Discharge Orders: Discharge ED (Routine); Ordered 12/06/23 Ordered By: Mauricio Patel Referrals: Jackie Bryant NP [Primary Care Provider] - 1 week Patient Instructions: Chest Pain (ED) Activity Restrictions/Additional Instructions: Evaluation in the ER did not show any acute cardiac cause of your chest pain. Your chest pain is felt to be noncardiac in nature probably chest wall or pleuritic type pain. If your pain returns or worsens please feel free to return to the ER otherwise follow-up with your family practice physician within the next 7 days for further evaluation and treatment. 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[employer] Documented by User: Mauricio Patel DO 12/06/23 20:04 HPI - Chest Pain General: Chief Complaint: Chest Pain Stated Complaint: Chest Pain, dizzy, SOB Time Seen by Provider: 12/06/23 15:04 Related Data Home Medications Medication Instructions Recorded Confirmed fluticasone propionate 50 2 spray intranasal DAILY PRN 05/11/19 11/15/23 mcg/actuation nasal Allergy Symptoms spray,suspension Previous Rx's Medication Instructions Recorded blood sugar diagnostic (OneTouch #100 ea 01/30/21 Ultra Test strips) blood sugar diagnostic #100 ea 08/12/21 blood sugar diagnostic (OneTouch #100 ea 01/11/23 Ultra Test strips) Lancets #100 ea 04/14/23 simvastatin 20 mg tablet See Rx Instructions .Route 05/12/23 .COMPLEX #90 tabs ibuprofen 800 mg tablet See Rx Instructions .Route 05/18/23 .COMPLEX #90 tabs tiotropium bromide 18 mcg capsule 1 cap inhalation DAILY #60 06/14/23 with inhalation device (Spiriva inhalations with HandiHaler) lorazepam 1 mg tablet (Ativan) 1 mg PO BID PRN anxiety #60 tabs 07/05/23 topiramate 50 mg tablet (Topamax) 50 mg PO .evening #30 tabs 10/28/23 ziprasidone HCl 80 mg capsule 80 mg PO BID #60 caps 10/28/23 (Geodon) glipizide 5 mg tablet, extended See Rx Instructions .Route 11/05/23 release 24 hr .COMPLEX #30 tabs trazodone 150 mg tablet 150 mg PO BEDTIME PRN insomnia #60 11/09/23 tabs Allergies Allergy/AdvReac Type Severity Reaction Status Date / Time acetaminophen [From Vicodin] Allergy ALGY-Bliste Verified 12/06/23 14:59 r aspirin Allergy Unknown Verified 12/06/23 14:59 chlorpromazine Allergy Unknown Verified 12/06/23 14:59 [From Thorazine] citalopram [From Celexa] Allergy Unknown Verified 12/06/23 14:59 codeine Allergy Unknown Verified 12/06/23 14:59 fluoxetine [From Prozac] Allergy Unknown Verified 12/06/23 14:59 hydrocodone [From Vicodin] Allergy ALGY-Bliste Verified 12/06/23 14:59 r latex Allergy Unknown Verified 12/06/23 14:59 paroxetine [From Paxil] Allergy Unknown Verified 12/06/23 14:59 Penicillins Allergy Unknown Verified 12/06/23 14:59 Sulfa (Sulfonamide Allergy Unknown Verified 12/06/23 14:59 Antibiotics) venlafaxine [From Effexor] Allergy Unknown Verified 12/06/23 14:59 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 Uncoded 12/06/23 14:59 PFSH ED PFSH: Medical History Screening for breast cancer Psychiatric care Psychiatric care Nicotine dependence, cigarettes, uncomplicated Peripheral neuropathy due to chemotherapy GERD (gastroesophageal reflux disease) Lymphoma Tobacco abuse Family history of abdominal aortic aneurysm (AAA) Type 2 diabetes mellitus with other specified complication Personal history of traumatic brain injury Chronic post-traumatic stress disorder Panic disorder with agoraphobia Borderline personality disorder Schizoaffective disorder, bipolar type Surgical History Hx of tonsillectomy Hx of tubal ligation Hx of lymph node biopsy Hx of section Family History Other Alzheimer disease Aneurysm of abdominal aorta Cancer Diabetes Heart murmur Multiple personality disorder Stroke Social History Smoking and tobacco/nicotine status: current every day tobacco/nicotine user Quit status (tobacco/nicotine): has tried quititng Second hand smoke exposure: Yes (mother) Alcohol intake: former Substance/Drug Use: never Adopted: No Caregiver/support person: No Lives independently: Yes (mother lives with her) Household members: family and friend(s) Housing: Apartment Marital status: Number of children: 3 Number of grandchildren: 11 Highest education level completed: 8th Grade service: No Current occupational status: disabled Pets and animals: No Leisure activites: games, fishing and other Leisure activities details: sol [place] Sexually active: No Do you think of yourself as: Straight/Heterosexual Current gender identity: Female Yin/Rastafarian: Evangelical Special yin needs: No Agree to transfusion: Yes Course Vital Signs: Vital signs: Vital Signs Temperature 97.5 F L 12/06/23 14:55 Pulse Rate 72 12/06/23 20:00 Respiratory Rate 21 H 12/06/23 20:00 Blood Pressure 124/66 12/06/23 20:00 Pulse Oximetry 99 12/06/23 20:00 Oxygen Delivery Me thod Room Air 12/06/23 20:00 MDM - Chest Pain Medical Decision Making Care signed out to Dr. Patel at change of shift. See final notes for diagnosis and disposition. Care turned over to myself at shift change, waiting for lab work to return, once lab work was returned troponin delta was essentially 0, baseline troponin 2-hour troponin was about 6. Patient remained chest pain-free her entire time. Patient was informed of these results and the patient states he is ready to go patient is hungry. Patient be discharged home. Differential Diagnosis Unlikely acute massive pulmonary embolism, acute myocardial infarction, cardiac arrest or sudden cardiac Medical Records I reviewed the patient's medical records. Lab Data I reviewed the patient's lab results. 12/06/23 16:45 12/06/23 16:45 Radiology Impressions Chest X-Ray 12/06/23 15:04 IMPRESSION: No acute findings. Laboratory Results WBC 11.07 10^3/uL (3.29-11.43) 12/06/23 16:45 RBC 4.92 10^6/uL (3.85-5.65) 12/06/23 16:45 Hgb 14.80 g/dL (11.27-16.99) 12/06/23 16:45 Hct 45.7 % (36-47) 12/06/23 16:45 MCV 92.9 fl (85-98) 12/06/23 16:45 MCH 30.1 pg (27-33) 12/06/23 16:45 MCHC 32.4 g/dL (30-55) 12/06/23 16:45 RDW 13.5 % (12.1-15.1) 12/06/23 16:45 Plt Count 217 10^3/cmm (157-399) 12/06/23 16:45 MPV 10.0 fL (7.4-10.4) 12/06/23 16:45 Neut % (Auto) 72.0 % 12/06/23 16:45 Lymph % (Auto) 19.3 % 12/06/23 16:45 [place] % (Auto) 6.1 % 12/06/23 16:45 Eos % (Auto) 1.8 % 12/06/23 16:45 Baso % (Auto) 0.4 % 12/06/23 16:45 Neut # (Auto) 7.97 10^3/uL (1.8-7.7) H 12/06/23 16:45 Lymph # (Auto) 2.1 10^3/uL (0.8-4.8) 12/06/23 16:45 [place] # (Auto) 0.7 10^3/uL (0.2-0.9) 12/06/23 16:45 Eos # (Auto) 0.2 10^3/uL (0.0-0.8) 12/06/23 16:45 Baso # (Auto) 0.0 10^3/uL (0.0-0.1) 12/06/23 16:45 Nucleated RBC % (auto) 0 % 12/06/23 16:45 Nucleated RBCs # 0.0 /100WBC 12/06/23 16:45 Sodium 139 mmol/L (136-145) 12/06/23 16:45 Potassium 3.8 mmol/L (3.5-5.1) 12/06/23 16:45 Chloride 106 mmol/L (98-107) 12/06/23 16:45 Carbon Dioxide 22 mmol/L (22-29) 12/06/23 16:45 Anion Gap 14.8 (5-19) 12/06/23 16:45 BUN 9 mg/dL (6-20) 12/06/23 16:45 Creatinine 0.8 mg/dL (0.5-0.9) 12/06/23 16:45 GFR Calculation 74.7 mL/min (90-130) L 12/06/23 16:45 Glucose 110 mg/dL (65-115) 12/06/23 16:45 Calculated Osmolality 287 mOsm/kg (285-295) 12/06/23 16:45 Calcium 10.7 mg/dL (8.5-10.5) H 12/06/23 16:45 Total Bilirubin 0.3 mg/dL (0.15-1.2) 12/06/23 16:45 AST 10 U/L (0-32) 12/06/23 16:45 ALT 11 U/L (0-33) 12/06/23 16:45 Alkaline Phosphatase 112 U/L (35-105) H 12/06/23 16:45 Troponin T Baseline < 6 ng/L (0-10) 12/06/23 16:45 Troponin T 120 Minute 6.00 ng/L (0-10) 12/06/23 19:11 Delta Troponin T 0.16734 ABS# (0-10) 12/06/23 19:11 Total Protein 6.5 g/dL (6.6-8.7) L 12/06/23 16:45 Albumin 3.9 g/dL (3.5-5.2) 12/06/23 16:45 Globulin 2.6 g/dL (1.3-4.6) 12/06/23 16:45 All radiology interpretation(s) finalized by discharge Clincial Decision Support The following clinical decision support tools were used to aid in care of the patient HEART Score -> Resulting HEART Score: 2. Discharge Plan Discharge Patient Disposition: Home Clinical Impression: Chest pain Qualifiers: Chest pain type: unspecified Qualified Code(s): R07.9 - Chest pain, unspecified Condition: Stable Prescriptions: No Action fluticasone propionate 50 mcg/actuation spray,suspension 2 spray INTRANASAL DAILY PRN (Reason: Allergy Symptoms) (DME) OneTouch Ultra Test Strip See Rx Instructions .Route Qty: 100 0RF Rx Instructions: As directed lorazepam [Ativan] 1 mg tablet 1 mg PO BID PRN (Reason: anxiety) Qty: 60 3RF Rx Instructions: Take one tablet twice per day as needed for anxiety glipizide 5 mg tablet extended release 24hr See Rx Instructions .ROUTE .COMPLEX Qty: 30 0RF Dose Instruction: TAKE 1 TABLET BY MOUTH EVERY DAY Rx Instructions: TAKE 1 TABLET BY MOUTH EVERY DAY tiotropium bromide [Spiriva with HandiHaler] 18 mcg capsule, w/inhalation device 1 cap inhalation DAILY Qty: 60 5RF Rx Instructions: puncture 1 cap using device; one dose = 2 inhalations trazodone 150 mg tablet 150 mg PO BEDTIME PRN (Reason: insomnia) Qty: 60 3RF Rx Instructions: May take one tablet at bedtime as needed for sleep, may repeat dose in 1 hour if not asleep (DME) OneTouch Ultra Blue Test Strip Strip See Rx Instructions .ROUTE .MEDSUPPLY Qty: 100 0RF Rx Instructions: three times a week (DME) OneTouch Ultra Test Strip See Rx Instructions .ROUTE .COMPLEX Qty: 100 0RF Dose Instruction: USE DIRECTED Rx Instructions: USE DIRECTED (DME) Lancets See Rx Instructions .Route .MEDSUPPLY Qty: 100 0RF Rx Instructions: Use daily for blood glucose testing simvastatin 20 mg tablet See Rx Instructions .ROUTE .COMPLEX Qty: 90 1RF Dose Instruction: TAKE 1 TABLET BY MOUTH EVERY DAY Rx Instructions: TAKE 1 TABLET BY MOUTH EVERY DAY ibuprofen 800 mg tablet See Rx Instructions .ROUTE .COMPLEX Qty: 90 0RF Dose Instruction: TAKE 1 TABLET BY MOUTH THREE TIMES DAILY NEEDED FOR PAIN *take with food* Rx Instructions: TAKE 1 TABLET BY MOUTH THREE TIMES DAILY NEEDED FOR PAIN *take with food* ziprasidone HCl [Geodon] 80 mg capsule 80 mg PO BID Qty: 60 6RF Rx Instructions: Take one capsule in am and evening with supper (500 calories each meal) topiramate [Topamax] 50 mg tablet 50 mg PO .evening Qty: 30 6RF Rx Instructions: Take one tablet every evening Discharge Orders: Discharge ED (Routine); Ordered 12/06/23 Ordered By: Mauricio Patel Referrals: Jackie Bryant NP [Primary Care Provider] - 1 week Patient Instructions: Chest Pain (ED) Activity Restrictions/Additional Instructions: Evaluation in the ER did not show any acute cardiac cause of your chest pain. Your chest pain is felt to be noncardiac in nature probably chest wall or pleuritic type pain. If your pain returns or worsens please feel free to return to the ER otherwise follow-up with your family practice physician within the next 7 days for further evaluation and treatment. 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
[2023-12-06 17:00] LABS: Basophils % 0.4 %; Eosinophils # 0.2 10^3/uL (0.0-0.8); Eosinophils % 1.8 %; Hematocrit 45.7 % (36-47); Lymphocytes # 2.1 10^3/uL (0.8-4.8); Lymphocytes % 19.3 %; Mean Corpuscular HGB Conc 32.4 g/dL (30-55); Mean Corpuscular Hemoglobin 30.1 pg (27-33); Mean Corpuscular Volume 92.9 fl (85-98); Monocytes # 0.7 10^3/uL (0.2-0.9); Monocytes % 6.1 %; Neutrophils # 7.97 10^3/uL (1.8-7.7); Nucleated Red Blood Cells % 0 %; Platelet Count 217 10^3/cmm (157-399); Red Blood Count 4.92 10^6/uL (3.85-5.65); Red Cell Distribution Width 13.5 % (12.1-15.1); White Blood Count 11.07 10^3/uL (3.29-11.43)
--- NOTE | 2023-12-06 17:04 | ECG_ITS ---
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 Measurements Intervals [place] Rate: 61 P: 29 [place]: 155 QRS: 58 QRSD: 99 T: 53 QT: 401 QTc: 404 Interpretive Statements SINUS RHYTHM WITH SINUS ARRHYTHMIA Compared to ECG 12/06/2023 14:47:41 No significant changes Electronically Signed On 12-06-2023 18:08:53 CDT by Romel Pink M.D. [email or web address]
[2023-12-06 17:11] LABS: Alanine Aminotransferase 11 U/L (0-33); Albumin Level 3.9 g/dL (3.5-5.2); Alkaline Phosphatase 112 U/L (35-105); Anion Gap 14.8 (5-19); Aspartate Amino Transferase 10 U/L (0-32); Blood Urea Nitrogen 9 mg/dL (6-20); Calcium 10.7 mg/dL (8.5-10.5); Carbon Dioxide 22 mmol/L (22-29); Chloride 106 mmol/L (98-107); Creatinine Clr Calc Pharmacy 103.5502; Globulin 2.6 g/dL (1.3-4.6); Glomerular Filtration Rate 74.7 mL/min (90-130); Glucose 110 mg/dL (65-115); Osmolality Calculated 287 mOsm/kg (285-295); Potassium 3.8 mmol/L (3.5-5.1); Sodium 139 mmol/L (136-145); Total Bilirubin 0.3 mg/dL (0.15-1.2); Total Protein 6.5 g/dL (6.6-8.7)
[2023-12-06 17:13] LABS: Troponin(5th) Baseline < 6 ng/L (0-10)
[2023-12-06 19:36] LABS: Troponin 5 2HR Delta 0.00001 ABS# (0-10)
== END 2023-12-06 20:11 | disposition home or self-care (01) ==
PROVIDERS: Emergency Provider Family Medicine
DX: R07.9 Chest pain, unspecified (principal); Z79.84 Long term (current) use of oral hypoglycemic drugs; Z72.0 Tobacco use; E11.9 Type 2 diabetes mellitus without complications
CPT/HCPCS: 36415; 71045; 80053; 84484; 85025; 93005; 99285

== ENCOUNTER 2024-01-07 12:40 | Outpatient (CLI) | payer MEDICAID, SELFPAY ==
[2020-10-03 14:41] VITALS: BP 110/67; BMI 40.1
--- NOTE | 2024-01-07 12:45 | MM_ITS ---
WS: [id number] BILATERAL 3D TOMOSYNTHESIS DIGITAL SCREENING MAMMOGRAPHY WITH CAD CLINICAL INFORMATION: screening HISTORY: Screening mammogram. No current complaints. COMPARISON: 2022 TECHNIQUE: Bilateral CC and MLO views. FINDINGS: Scattered fibroglandular densities bilaterally. No suspicious focal mass, asymmetry, calcifications, or architectural distortion. No evidence of malignancy. Punctate and lucent centered calcifications. MM/MM scr BI tomosynthesis [id number] IMPRESSION: DENSITY: There are scattered areas of fibroglandular density. BI-RADS: 2 - Benign. FOLLOW UP: 1 Year Follow-up Recommend return to annual screening mammography.
== END 2024-01-07 12:41 | disposition home or self-care (01) ==
LOC: RAD 12:41
PROVIDERS: Visit Provider Family Medicine
DX: Z12.31 Encounter for screening mammogram for malignant neoplasm of breast (principal); R92.323 Mammographic fibroglandular density, bilateral breasts; R92.1 Mammographic calcification found on diagnostic imaging of breast
CPT/HCPCS: 77063; 77067

== ENCOUNTER 2024-04-27 10:28 | Outpatient (CLI) | payer MEDICAID, SELFPAY ==
[2020-10-03 14:41] VITALS: BP 110/67; BMI 40.1
--- NOTE | 2024-04-27 10:32 | CT_ITS ---
WS: [id number] LDCT LUNG CANCER SCREENING HISTORY: NICOTINE DEPENDENCE, CIGARETTES TECHNIQUE: Axial imaging performed from the apices to 1 cm below the costophrenic angles. Coronal and sagittal reformats are submitted with axial MIP series. All CT scans at [facility] use at least one of these dose optimization techniques: automated exposure control; mA and/or kV adjustment per patient size (includes targeted exams where dose is matched to clinical indication); or iterativ e reconstruction. DLP: 101.70 mGy.cm DIvol: Mean CTDIvol: 2.70 (mGy) COMPARISON: 05/31/2023, 07/23/2022 Diagnostic quality: Satisfactory Lungs: Numerous, subcentimeter bilateral pulmonary nodules are reidentified. These nodules have been present since at least 07/23/2022 without increase in size or number. The largest nodule 7 mm at the L EFT lung base. No endobronchial lesions. No pneumonia. Paraseptal emphysema. Heart: Normal size heart with no pericardial effusion.. Other findings: No mediastinal or hilar adenopathy. Small hiatal hernia. No adrenal mass. CT/CT lung screening [id number] IMPRESSION: LUNG-RADS: 2-Benign Appearance or Behavior FOLLOW UP: 12 Month: Continue annual screening with LDCT OTHER FINDINGS (S MODIFIER): None.
== END 2024-04-27 10:29 | disposition home or self-care (01) ==
LOC: RAD 10:29
PROVIDERS: PCP Family Medicine; Visit Provider Family Medicine
DX: Z12.2 Encounter for screening for malignant neoplasm of respiratory organs (principal); F17.210 Nicotine dependence, cigarettes, uncomplicated; R91.8 Other nonspecific abnormal finding of lung field; J43.8 Other emphysema; K44.9 Diaphragmatic hernia without obstruction or gangrene
CPT/HCPCS: 71271

== ENCOUNTER 2024-07-27 11:03 | Emergency (ER) | payer MEDICAID, SELFPAY ==
[2020-10-03 14:41] VITALS: BP 110/67; BMI 40.1
--- NOTE | 2024-07-27 11:06 | XR_ITS ---
WS: [id number] Exam: XR hand LT min 3V* [id number] Date/Time of Exam: 07/27/2024 11:23 AM Reason For Exam: thumb pain No acute fracture. Very slight degenerative changes in the IP joints. Remaining joints are relatively well-maintained. Normal soft tissues. XR/XR hand LT min 3V* [id number] IMPRESSION: 1. Minimal degenerative change.
[2024-07-27 11:07] VITALS: BP 114/68; PULSE 85; RESP 16; TEMP 36.7; O2SAT 96; BMI 38.7
--- NOTE | 2024-07-27 13:30 | DCPLANNER ---
messaged ortho for er f/u
[2024-07-27 13:31] VITALS: BP 135/74; PULSE 72; O2SAT 96
--- NOTE | 2024-07-27 13:42 | W.ED.EXTPRO ---
HPI - Extremity Problem General: Chief complaint: Extremity Problem,Nontraumatic Stated complaint: left thumb pain Time Seen by Provider: 07/27/24 13:06 Source: patient Mode of arrival: ambulatory Limitations: no limitations History of Present Illness: Patient is a 53-year-old female who presents the emergency department complaining of left thumb pain for the past week. Denies any injury, states she does not work and has no history of carpal tunnel or other previous procedures or surgeries on the left hand. 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 States that the pain radiates from the distal thumb down into the hand, has been taking ibuprofen daily and notes it does seem to alleviate the pain. No trauma is reported or injury that she recalls, states that she thinks she might have rolled over on her hand or slept on it wrong. No other symptoms, joint swelling, redness, or other symptoms noted at this time. Vitals within normal limits. Patient is right-hand dominant. MD Complaint: extremity pain Onset (ago): week(s) (1) Pain Consistency: constant Location: left Radiation: proximal Exacerbating factors: other (Range of motion, gripping) Associated symptoms: Deny chest pain, fever(s) or rash Related Data Home Medications ?Medication ?Instructions ?Recorded ?Confirmed fluticasone propionate 50 2 spray intranasal DAILY PRN 05/11/19 03/15/24 mcg/actuation nasal Allergy Symptoms spray,suspension Previous Rx's ?Medication ?Instructions ?Recorded blood sugar diagnostic (OneTouch #100 ea 01/30/21 Ultra Test strips) blood sugar diagnostic #100 ea 08/12/21 Lancets #100 ea 04/14/23 ibuprofen 800 mg tablet See Rx Instructions .Route 05/18/23 .COMPLEX #90 tabs tiotropium bromide 18 mcg capsule 1 cap inhalation DAILY #60 06/14/23 with inhalation device (Spiriva inhalations with HandiHaler) lorazepam 1 mg tablet (Ativan) 1 mg PO BID PRN anxiety #60 tabs 03/15/24 topiramate 50 mg tablet (Topamax) 50 mg PO .evening #30 tabs 03/15/24 trazodone 150 mg tablet 150 mg PO BEDTIME PRN insomnia #60 03/15/24 tabs ziprasidone HCl 80 mg capsule 80 mg PO BID #60 caps 03/15/24 (Geodon) glipizide 5 mg tablet, extended See Rx Instructions .Route 03/27/24 release 24 hr .COMPLEX #30 tabs blood sugar diagnostic (OneTouch #100 ea 04/11/24 Ultra Test strips) simvastatin 20 mg tablet See Rx Instructions .Route 07/17/24 .COMPLEX #90 tabs prednisone 20 mg tablet 60 mg (3 x 20 mg) PO ONCE 5 days 07/27/24 #15 tabs Allergies Allergy/AdvReac Type Severity Reaction Status Date / Time acetaminophen (From Vicodin) Allergy ALGY-Bliste Verified 03/15/24 13:16 r aspirin Allergy ALGY-Hives Verified 07/27/24 11:10 chlorpromazine (From Allergy ALGY-Hives Verified 07/27/24 11:10 Thorazine) citalopram (From Celexa) Allergy ALGY-Hives Verified 07/27/24 11:10 codeine Allergy ALGY-Rash Verified 07/27/24 11:10 fluoxetine (From Prozac) Allergy ALGY-Hives Verified 07/27/24 11:10 hydrocodone (From Vicodin) Allergy ALGY-Bliste Verified 03/15/24 13:16 r latex Allergy ALGY-Bliste Verified 07/27/24 11:10 r paroxetine (From Paxil) Allergy ADR-Drowsy Verified 07/27/24 11:10 Penicillins Allergy ALGY-Anaphy Verified 07/27/24 11:10 laxis Sulfa (Sulfonamide Allergy ALGY-Difficulty Verified 07/27/24 11:11 Antibiotics) Breathing venlafaxine (From Effexor) Allergy ADR-Headach Verified 07/27/24 11:11 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 Allergy ALGY-Hives Uncoded 07/27/24 11:11 Review of Systems General: Reports: 10 or more systems reviewed and unremarkable except in HPI and below Const: Denies: fever(s) or chills Card: Denies: chest pain Resp: Denies: dyspnea or productive cough GI: Denies: abdominal pain, nausea, vomiting or diarrhea : Denies: flank pain Musc: Reports: extremity pain (Left thumb); Denies: neck pain, back pain, extremity swelling, joint pain, joint swelling, joint redness, joint warmth, limited range of motion or muscle weakness Skin/Breast: Denies: rash Neuro: Denies: headache(s), numbness in extremities or weakness in extremities PFSH ED PFSH: Medical History Screening for breast cancer Psychiatric care Psychiatric care Nicotine dependence, cigarettes, uncomplicated Peripheral neuropathy due to chemotherapy GERD (gastroesophageal reflux disease) Lymphoma Tobacco abuse Family history of abdominal aortic aneurysm (AAA) Type 2 diabetes mellitus with other specified complication Personal history of traumatic brain injury Chronic post-traumatic stress disorder Panic disorder with agoraphobia Borderline personality disorder Schizoaffective disorder, bipolar type Surgical History Hx of tonsillectomy Hx of tubal ligation Hx of lymph node biopsy Hx of section Family History Other Alzheimer disease Aneurysm of abdominal aorta Cancer Diabetes Heart murmur Multiple personality disorder Stroke Social History Smoking and tobacco/nicotine status: current every day tobacco/nicotine user Quit status (tobacco/nicotine): has tried quititng Second hand smoke exposure: Yes (mother) Alcohol intake: former Substance/Drug Use: never Adopted: No Caregiver/support person: No Lives independently: Yes (mother lives with her) Household members: family and friend(s) Housing: Apartment Marital status: Number of children: 3 Number of grandchildren: 11 Highest education level completed: 8th Grade service: No Current occupational status: disabled Pets and animals: No Leisure activites: games, fishing and other Leisure activities details: rose marieingsol Sexually active: No Do you think of yourself as: Straight/Heterosexual Current gender identity: Female Yin/Temple: Islam Special yin needs: No Agree to transfusion: Yes Female Reproductive History: Para: 3 Physical Exam Const: COMMON NORMALS: no acute distress, patient oriented x3, no limitations, healthy appearing, alert and well nourished HENMT: COMMON NORMALS: normocephalic and atraumatic HEAD & SCALP: normocephalic and atraumatic Neck/C-Spine: COMMON NORMALS: full ROM, supple and no meningeal signs Resp: COMMON NORMALS: normal respiratory effort, No use of accessory muscles and clear to auscultation bilaterally AUSCULTATION: clear to auscultation bilaterally Cardio: COMMON NORMALS: regular rate and regular rhythm RATE: regular rate RHYTHM: regular rhythm Extremity: COMMON NORMALS: full ROM, capillary refill normal, no joint enlargement and no clubbing, cyanosis or edema NARRATIVE EXTREMITY EXAM: Tender to very light palpation of the left first MCP joint. No swelling, redness, or deformity appreciated at this time. Tenderness to palpation diffusely along the dorsal and palmar aspect of the hand. Radial pulse palpable. Negative Phalen's. Negative Malu's. Negative DJD grind test. Neuro: COMMON NORMALS: patient oriented x3, moves all extremities, no focal motor deficits and no sensory deficits noted SENSORIUM/ORIENTATION: Yes alert MENINGEAL SIGNS: Yes no meningeal signs Skin: COMMON NORMALS: no rashes or lesions noted GENERAL SKIN EXAM: no rashes or lesions noted Course Vital Signs: Vital signs: Vital Signs Temperature 98.0 F 07/27/24 11:07 Pulse Rate 72 07/27/24 13:31 Respiratory Rate 16 07/27/24 11:07 Blood Pressure 135/74 07/27/24 13:31 Pulse Oximetry 96 07/27/24 13:31 Oxygen Delivery Me thod Room Air 07/27/24 11:07 MDM - Extremity (Nontraumatic) Medical Decision Making Patient presenting for left hand pain for a week. There is no injury reported, she has no previous procedures or surgeries in the left hand. On exam she had very easily reproducible tenderness to palpation, though this was without any obvious signs of trauma or deformity. Vitals unremarkable, respiratory exam normal including neurovascular exam. This was reported to be greater than a week of onset of symptoms, I do not have suspicion for scaphoid injury. In addition her hand x-ray was unremarkable for any acute findings where she was tender. I suspect either tendon or ligament etiology, will start on prednisone and ultimately have her see orthopedics for further evaluation. Negative testing for carpal tunnel syndrome here at this time. Lab Data Radiology Impressions Hand X-Ray 07/27/24 11:06 IMPRESSION: 1. Minimal degenerative change. All radiology interpretation(s) finalized by discharge Discharge Plan Discharge Patient Disposition: Home Clinical Impression: Hand pain, left Condition: Stable Prescriptions: New prednisone 20 mg tablet 60 mg PO ONCE 5 Days Qty: 15 0RF No Action fluticasone propionate 50 mcg/actuation spray,suspension 2 spray INTRANASAL DAILY PRN (Reason: Allergy Symptoms) (DME) OneTouch Ultra Test Strip See Rx Instructions .Route Qty: 100 0RF Rx Instructions: As directed tiotropium bromide [Spiriva with HandiHaler] 18 mcg capsule, w/inhalation device 1 cap inhalation DAILY Qty: 60 5RF Rx Instructions: puncture 1 cap using device; one dose = 2 inhalations trazodone 150 mg tablet 150 mg PO BEDTIME PRN (Reason: insomnia) Qty: 60 3RF Rx Instructions: May take one tablet at bedtime as needed for sleep, may repeat dose in 1 hour if not asleep ziprasidone HCl [Geodon] 80 mg capsule 80 mg PO BID Qty: 60 6RF Rx Instructions: Take one capsule in am and evening with supper (500 calories each meal) topiramate [Topamax] 50 mg tablet 50 mg PO .evening Qty: 30 6RF Rx Instructions: Take one tablet every evening lorazepam [Ativan] 1 mg tablet 1 mg PO BID PRN (Reason: anxiety) Qty: 60 3RF Rx Instructions: Take one tablet twice per day as needed for anxiety (DME) OneTouch Ultra Blue Test Strip Strip See Rx Instructions .ROUTE .MEDSUPPLY Qty: 100 0RF Rx Instructions: three times a week (DME) Lancets See Rx Instructions .Route .MEDSUPPLY Qty: 100 0RF Rx Instructions: Use daily for blood glucose testing ibuprofen 800 mg tablet See Rx Instructions .ROUTE .COMPLEX Qty: 90 0RF Dose Instruction: TAKE 1 TABLET BY MOUTH THREE TIMES DAILY NEEDED FOR PAIN *take with food* Rx Instructions: TAKE 1 TABLET BY MOUTH THREE TIMES DAILY NEEDED FOR PAIN *take with food* glipizide 5 mg tablet extended release 24hr See Rx Instructions .ROUTE .COMPLEX Qty: 30 0RF Dose Instruction: TAKE 1 TABLET BY MOUTH EVERY DAY Rx Instructions: TAKE 1 TABLET BY MOUTH EVERY DAY (DME) OneTouch Ultra Test Strip See Rx Instructions .ROUTE .COMPLEX Qty: 100 0RF Dose Instruction: USE DIRECTED Rx Instructions: USE DIRECTED simvastatin 20 mg tablet See Rx Instructions .ROUTE .COMPLEX Qty: 90 1RF Dose Instruction: TAKE 1 TABLET BY MOUTH EVERY DAY Rx Instructions: TAKE 1 TABLET BY MOUTH EVERY DAY Discharge Orders: Discharge ED (Routine); Ordered 07/27/24 Ordered By: Olu Smart Referrals: Marga Higgins DO [Primary Care Provider] - Patient Instructions: Arthralgia (ED) Activity Restrictions/Additional Instructions: Take prednisone as prescribed. Ibuprofen. Follow-up with orthopedics as we discussed. Rest and recovery, avoid any further trauma or excessive use of the left hand. Compression for added relief, elevation. Ice as needed. Return with any new or worsening. Print Language: Israeli Coding Level of Care Code ED Drinking Water Technician for Francisco Mcdermott
== END 2024-07-27 13:33 | disposition home or self-care (01) ==
PROVIDERS: Emergency Provider Physician Assistant; PCP Family Medicine
DX: M79.642 Pain in left hand (principal); Z72.0 Tobacco use; E11.69 Type 2 diabetes mellitus with other specified complication
CPT/HCPCS: 73130; 99283

== ENCOUNTER → 2024-08-15 14:38 | Outpatient (BNVA) | payer MEDICAID, SELFPAY ==
[2020-10-03 14:41] VITALS: BP 110/67; BMI 40.1
== END ==
PROVIDERS: PCP Family Medicine; Visit Provider Student in an Organized Health Care Education/Training Program
DX: M65.4 Radial styloid tenosynovitis [de Quervain] (principal)
CPT/HCPCS: 20600; 99204; J3301; J3490

== ENCOUNTER 2024-10-17 12:22 | Inpatient (IN) | payer MEDICAID, SELFPAY ==
--- OUTSIDE RECORDS SUMMARY | 2018-05-03 09:00 | XMS_ITS | Continuity of Care Document ---
Author Organization [facility] Address [id number] [address] Phone Care Team Providers Care Talent Acquisition Assistant Name Role Phone Sabas Franco DDS Unavailable Unavailable Allergies, Adverse Reactions, Alerts Substance Reaction Status Criticality aspirin Active No Information codeine Active No Information amoxicillin Active No Information PENICILLIN Active No Information Medications Medication Instructions Dosage Effective Dates (start - stop) Status Comments Geodon 20 mg capsule take 1 capsule by o ral route 2 times every day with food 20 MG - Active Procedures Procedure Date Extraction, Erupted Tooth Or Exposed Fannie t (Elev Extraction, Erupted Tooth Or Exposed Fannie t (Elev Extraction, Erupted Tooth Or Exposed Fannie t (Elev Extraction, Erupted Tooth Or Exposed Fannie t (Elev Extraction, Erupted Tooth Or Exposed Fannie t (Elev Extraction, Erupted Tooth Or Exposed Fannie t (Elev Extraction, Erupted Tooth Or Exposed Fannie t (Elev Extraction, Erupted Tooth Or Exposed Fannie t (Elev Extraction, Erupted Tooth Or Exposed Fannie t (Elev Extraction, Erupted Tooth Or Exposed Fannie t (Elev Extraction, Erupted Tooth Or Exposed Fannie t (Elev Extraction, Erupted Tooth Or Exposed Fannie t (Elev EDR Approval Note Comprehensive Oral Evaluatio n New Or Established Panoramic Film Oral Hygiene Instructions Caries Moderate Risk Exempt From Sealant Measure EDR Approval Note Pre-Pay For Services Advance Directives Directive Yes / No Effective Date File Name No Information Encounters Encounter Description Practice Location Reason(s) For Visit Diagnoses Date Provider Providers Copied on Encounter [facility], [id number], [id number], tel:[phone] [facility] Encounter for dental exam and cleaning w/o abnormal findings Salvador Obregon. [address] [place], [address], [place]. tel:[phone] Referring Provider: Sabas lE, [address] [place], [address]. tel:[phone] [facility], [id number], [id number], tel:[phone] [facility] Encounter for dental exam and cleaning w/o abnormal findings Salvador Obregon. [address] [place], [address], [place]. tel:[phone] Referring Provider: Sabas El, [address] [place], [address]. tel:[phone] Family History Family Member Type Diagnosis Age At Onset Mother Problem (finding) Alive and well Maternal grandfather Problem (finding) alcoholism Payers Payer name Insurance type Covered republican ID Authoriza tion(s) No Information Social History Type Description Quantity Date Captured Comments Alcohol Use Details No Caffeine Use Details Unknown Tobacco Use Status Smoking Status Heavy tobacco smoker Smoking Tobacco Use Details Cigarette: No Details Available Cigarette: 2 Packs per day Sex Female Vital Signs Date / Time: Height Weight BMI Pulse Rate Blood Pressure Temperature Respiratory Rate Body Surface Area Head Circumference Head Circ. Percentile [place]. Percentile BMI percentile Pulse Ox Inhaled Ox 2:10 PM 150/96 mm[Hg] Chief Complaint And Reason For Visit No Information Reason For Referral Reason For Referral No Information Plan Of Treatment Date Type Action Status Goal Tobacco cessation counseling completed History Of Present Illness Encounter Date Complaint History Of Prese nt Illness No Information Functional Status Date Functional Assessmen t No Information Instructions Date Instruction Additional Infor mation No Information Assessments Type Assessment Date No Information Patient Care Teams Name Effective Dates (start - stop) Status Members No Information
[2020-10-03 14:41] VITALS: BP 110/67; BMI 40.1
[2024-10-17 12:26] VITALS: BP 150/99; PULSE 89; RESP 16; TEMP 36.6; O2SAT 97
--- NOTE | 2024-10-17 12:33 | ECG_ITS ---
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 Measurements Intervals [place] Rate: 80 P: 30 RI: 153 QRS: 53 QRSD: 98 T: 46 QT: 364 QTc: 420 Interpretive Statements SINUS RHYTHM Compared to ECG 12/06/2023 17:11:30 Sinus arrhythmia no longer present Electronically Signed On 10-17-2024 15:00:16 CDT by Romel Pink M.D. [email or web address]
--- NOTE | 2024-10-17 12:35 | CT_ITS ---
WS: [id number] CT HEAD TECHNIQUE: Noncontrast CT of the head obtained from the skullbase to the vertex. CLINICAL INFORMATION: Symptoms of acute stroke COMPARISON: None. DLP: [address] scans at [facility] use at least one of these dose optimization techniques: automated exposure control; mA and/or kV adjustment per patient size (includes targeted exams where dose is matched to clinical indication); or iterative reconstruction. FINDINGS: No evidence of intracranial hemorrhage or mass effect. Ventricular system and basal cisterns are patent. No extra-axial fluid collections. No evidence of mass or mass effect. Normal denney-white differentiation. Mild mucosal thickening in the ethmoid air cells. Mastoid air cells are well aerated. CT/CT head thrombolytic [id number] IMPRESSION: 1. No evidence of intracranial hemorrhage or mass effect. 2. No acute intracranial findings. Notified Jimmy Vieira MD at 10/17/2024 12:48 PM.
--- NOTE | 2024-10-17 12:45 | XR_ITS ---
WS: [id number] XR chest 1V portable [id number] REASON FOR EXAM: cp FINDINGS: The chest is unchanged compared to 12/06/2023. The heart and the mediastinum are within normal limits. Calcified granulomatous disease bilaterally. No acute pulmonary parenchymal or pleural abnormality is identified. Mild degenerative spondylosis in the mid and lower thoracic spine. XR/XR chest 1V portable [id number] IMPRESSION: Stable chest without acute abnormality.
--- NOTE | 2024-10-17 12:46 | ED_ITS ---
HPI - Neuro Symptoms/Deficit 2 General: Chief Complaint: Neuro Symptoms/Deficit Stated Complaint: dr jameson, stroke like symptoms Time Seen by Provider: 10/17/24 12:25 Source: patient Mode of arrival: ambulatory Limitations: no limitations History of Present Illness: 54-year-old female states she woke up th is morning having some dysarthria states she has slight right sided facial droop and some paresthesias. She states she has had some dizziness she has been ambulating fine. Last known normal was when she went to bed last night. She is also been having some slight chest pressure states she had recently started Ozempic she denies any vomiting or diarrhea Associated symptoms: Reports chest pain; Deny headache(s), nausea or vomiting Related Data Home Medications ?Medication ?Instructions ?Recorded ?Confirmed fluticasone propionate 50 2 spray intranasal DAILY PRN 05/11/19 10/17/24 mcg/actuation nasal Allergy Symptoms spray,suspension Previous Rx's ?Medication ?Instructions ?Recorded blood sugar diagnostic (OneTouch #100 ea 01/30/21 Ultra Test strips) blood sugar diagnostic #100 ea 08/12/21 Lancets #100 ea 04/14/23 ibuprofen 800 mg tablet See Rx Instructions .Route 0 05/18/23 .COMPLEX #90 tabs tiotropium bromide 18 mcg capsule 1 cap inhalation JAILENE LY #60 06/14/23 with inhalation device (Spiriva inhalations with HandiHaler) lorazepam 1 mg tablet (Ativan) 1 mg PO BID PRN anxiety #60 tabs 03/15/24 glipizide 5 mg tablet, extended See Rx Instructions .R oute 03/27/24 release 24 hr .COMPLEX #30 tabs blood sugar diagnostic (OneTouch #100 ea 04/11/24 Ultra Test strips) simvastatin 20 mg tablet See Rx Instructions .Route 0 07/17/24 .COMPLEX #90 tabs Left Thumb Spica Brace #1 ea 08/15/24 topiramate 50 mg tablet (Topamax) 50 mg PO .evening #3 0 tabs 08/18/24 trazodone 150 mg tablet 150 mg PO BEDTIME PRN insomn ia #60 08/18/24 tabs ziprasidone HCl 80 mg capsule 80 mg PO BID #60 caps (Geodon) Allergies Allergy/AdvReac Type Severity Reaction Status Date / Time acetaminophen (From Vicodin) Allergy ALGY-Bliste Verified 10/17/24 08:38 r aspirin Allergy ALGY-Hives Verified 10/17/24 08:38 chlorpromazine (From Allergy ALGY-Hives Verified 10/17/24 08:38 Thorazine) citalopram (From Celexa) Allergy ALGY-Hives Verified 10/17/24 08:38 codeine Allergy ALGY-Rash Verified 10/17/24 08:38 fluoxetine (From Prozac) Allergy ALGY-Hives Verified 10/17/24 08:38 hydrocodone (From Vicodin) Allergy ALGY-Bliste Verified 10/17/24 08:38 r latex Allergy ALGY-Bliste Verified 10/17/24 08:38 r paroxetine (From Paxil) Allergy ADR-Drowsy Verified 10/17/24 08:38 Penicillins Allergy ALGY-Anaphy Verified 10/17/24 08:38 laxis Sulfa (Sulfonamide Allergy ALGY-Difficulty Verified 10/17/24 08:38 Antibiotics) Breathing venlafaxine (From Effexor) Allergy ADR-Headach Verified 10/17/24 08:38 e hand microsoft dynamics ax consultant Allergy ALGY-Hives Uncoded 08/18/24 13:06 Review of Systems 2 Const: Denies: fever(s), chills, body aches or change in appetite Eyes: Denies: blurry vision or eye discomfort ENMT: Denies: throat pain or dental pain Card: Reports: chest pain Resp: Denies: dyspnea GI: Denies: abdominal pain, nausea, vomiting or diarrhea Musc: Denies: neck pain or back pain Skin/Breast: Denies: rash Neuro: Denies: headache(s) PFSH ED 2 PFSH: Medical History Screening for breast cancer Psychiatric care Psychiatric care Nicotine dependence, cigarettes, uncomplicated Peripheral neuropathy due to chemotherapy GERD (gastroesophageal reflux disease) Lymphoma Tobacco abuse Family history of abdominal aortic aneurysm (AAA) Type 2 diabetes mellitus with other specified complication Personal history of traumatic brain injury Chronic post-traumatic stress disorder Panic disorder with agoraphobia Borderline personality disorder Schizoaffective disorder, bipolar type Surgical History Hx of tonsillectomy Hx of tubal ligation Hx of lymph node biopsy Hx of section Family History Other Alzheimer disease Aneurysm of abdominal aorta Cancer Diabetes Heart murmur Multiple personality disorder Stroke Social History Smoking and tobacco/nicotine status: current every day tobacco/nicotine user Quit status (tobacco/nicotine): has tried quititng Second hand smoke exposure: Yes (mother) Alcohol intake: former Substance/Drug Use: never Adopted: No Caregiver/support person: No Lives independently: Yes (mother lives with her) Household members: family and friend(s) Housing: Apartment Marital status: Number of children: 3 Number of grandchildren: 11 Highest education level completed: 8th Grade service: No Current occupational status: disabled Pets and animals: No Leisure activites: games, fishing and other Leisure activities details: camping, sol Sexually active: No Do you think of yourself as: Straight/Heterosexual Current gender identity: Female Yin/Worship: Sabianism Special yin needs: No Agree to transfusion: Yes Female Reproductive History: Para: 3 NIH stroke score 2 NIHSS: Level Of Consciousness - 1a: 0 Level Of Consciousness Questions - 1b: Both Correct Level Of Consciousness Commands - 1c: Both Correct Best Gaze - 2: Normal Visual Gonzalez - 3: No Visual Loss Facial Palsy - 4: N ormal Motor Arm Right - 5: No Drift Motor Arm Left - 5: No Drift Motor Leg Right - 6: No Drift Motor Leg Left - 6: No Drift Limb Ataxia - 7: A bsent Sensory - 8: Normal Best Language - 9: No Aphasia Dysarthia - 10: Mild/Moderate Dysarthia Extinction And Inattention - 11: 0 Score: Total Score: 1 Physical Exam 2 Const: COMMON NORMALS: patient oriented x3 HENMT: COMMON NORMALS: normocephalic and atraumatic HEAD & SCALP: n ormocephalic and atraumatic Eye: COMMON NORMALS: EOMs intact bilaterally and conjunctivae normal C ONJUNCTIVA: Yes conjunctivae normal Neck/C-Spine: COMMON NORMALS: full ROM and supple Chest: COMMONS NORMALS: normal inspection of the chest Resp: COMMON NORMALS: normal respiratory effort, No retractions, No use of accessory muscles and clear to auscultation bilaterally AUSCULTATION: clear to auscultation bilaterally Cardio: COMMON NORMALS: regular rate, regular rhythm and No murmurs present (Cardio) RATE: regular rate RHYTHM: regular rhythm GI: COMMON NORMALS: Normal to inspection, nondistended, normoactive bowel sounds present, Soft to palpation, non-tender and no masses PALPATION: Yes Soft to palpation Extremity: COMMON NORMALS: normal to inspection and full ROM Neuro: COMMON NORMALS: patient oriented x3 and moves all extremities C RANIAL NERVES: Yes CN normal except as noted GAIT: Yes Normal gait present Psych: COMMON NORMALS: mental status grossly normal, Normal thought process present and cooperative THOUGHT PROCESS: Normal thought process present Skin: COMMON NORMALS: no rashes or lesions noted and no wounds GENERAL SKIN EXAM: no rashes or lesions noted Course 2 Vital Signs: Vital signs: Vital Signs Temperature 97.9 F 10/17/24 12:26 Pulse Rate 89 10/17/24 12:26 Respiratory Rate 16 10/17/24 12:26 Blood Pressure 150/99 10/17/24 12:26 Pulse Oximetry 97 10/17/24 12:26 Oxygen Delivery Me thod Room Air 10/17/24 12:26 MDM - Neuro Symptoms/Deficit Medical Decision Making Patient presents here with some slurred speech and possibly had a CVA her last known normal last night not a lytic candidate I got her NIH of 1 here she is also having some chest pain patient seen by neurology who recommended admission for further stroke workup. Medical Records I reviewed the patient's medical records. Lab Data I reviewed the patient's lab results. 10/17/24 12:50 10/17/24 12:[address] 10/17/24 12:35 IMPRESSION: 1. No evidence of intracranial hemorrhage or mass effect. 2. No acute intracranial findings. Notified Jimmy Vieira MD at 10/17/2024 12:48 PM. Chest X-Ray 10/17/24 12:45 IMPRESSION: Stable chest without acute abnormality. Laboratory Results WBC 10.36 10^3/uL (3.29-11.43) 10/17/24 12:50 RBC 4.68 10^6/uL (3.85-5.65) 10/17/24 12:50 Hgb 14.10 g/dL (11.27-16.99) 10/17/24 12:50 Hct 44.1 % (36-47) 10/17/24 12:50 MCV 94.2 fl (85-98) 10/17/24 12:50 MCH 30.1 pg (27-33) 10/17/24 12:50 MCHC 32.0 g/dL (30-55) 10/17/24 12:50 RDW 14.1 % (12.1-15.1) 10/17/24 12:50 Plt Count 189 10^3/cmm (157-399) 10/17/24 12:50 MPV 10.1 fL (7.4-10.4) 10/17/24 12:50 Neut % (Auto) 71.9 % 10/17/24 12:50 Lymph % (Auto) 19.4 % 10/17/24 12:50 [place] % (Auto) 5.2 % 10/17/24 12:50 Eos % (Auto) 2.6 % 10/17/24 12:50 Baso % (Auto) 0.4 % 10/17/24 12:50 Neut # (Auto) 7.45 10^3/uL (1.8-7.7) 10/17/24 12:50 Lymph # (Auto) 2.0 10^3/uL (0.8-4.8) 10/17/24 12:50 [place] # (Auto) 0.5 10^3/uL (0.2-0.9) 10/17/24 12:50 Eos # (Auto) 0.3 10^3/uL (0.0-0.8) 10/17/24 12:50 Baso # (Auto) 0.0 10^3/uL (0.0-0.1) 10/17/24 12:50 Nucleated RBC % (auto) 0 % 10/17/24 12:50 Nucleated RBCs # 0.0 /100WBC 10/17/24 12:50 PT 13.20 SECONDS (12.1-14.9) 10/17/24 12:50 INR 0.94 (0.8-1.2) 10/17/24 12:50 APTT 25.6 SECONDS (23.9-36.7) 10/17/24 12:50 Sodium 141 mmol/L (136-145) 10/17/24 12:50 Potassium 3.9 mmol/L (3.5-5.1) 10/17/24 12:50 Chloride 107 mmol/L (98-107) 10/17/24 12:50 Carbon Dioxide 22 mmol/L (22-29) 10/17/24 12:50 Anion Gap 15.9 (5-19) 10/17/24 12:50 BUN 5 mg/dL (6-20) L 10/17/24 12:50 Creatinine 0.7 mg/dL (0.5-0.9) 10/17/24 12:50 GFR Calculation 86.9 mL/min (90-130) L 10/17/24 12:50 Glucose 155 mg/dL (65-115) H 10/17/24 12:50 POC Glucose 138 mg/dL (70-110) H 10/17/24 12:37 Calculated Osmolality 292 mOsm/kg (285-295) 10/17/24 12:50 Calcium 10.8 mg/dL (8.5-10.5) H 10/17/24 12:50 Total Bilirubin 0.2 mg/dL (0.15-1.2) 10/17/24 12:50 AST 8 U/L (0-32) 10/17/24 12:50 ALT 10 U/L (0-33) 10/17/24 12:50 Alkaline Phosphatase 94 U/L (35-105) 10/17/24 12:50 Troponin T Baseline < 6 ng/L (0-10) 10/17/24 12:50 Total Protein 6.4 g/dL (6.6-8.7) L 10/17/24 12:50 Albumin 3.9 g/dL (3.5-5.2) 10/17/24 12:50 Globulin 2.5 g/dL (1.3-4.6) 10/17/24 12:50 Amorphous Sediment Not Reportable 10/17/24 13:40 Group A Strep Rapid Negative (Negative) 10/17/24 13:44 All radiology interpretation(s) finalized by discharge EKG Data EKG 1: I personally reviewed and interpreted this EKG as follows: EKG interpretation date: 10/17/24 EKG interpretation time: 12:33 Interpretation: nsr hr [address] elevation qrs 98 qtc 400 Discharge Plan Discharge Condition: Stable Prescriptions: No Action fluticasone propionate 50 mcg/actuation spray,suspension 2 spray INTRANASAL DAILY PRN (Reason: Allergy Symptoms) (DME) OneTouch Ultra Test Strip See Rx Instructions .Route Qty: 100 0RF Rx Instructions: As directed tiotropium bromide [Spiriva with HandiHaler] 18 mcg capsule, w/inhalation device 1 cap inhalation DAILY Qty: 60 5RF Rx Instructions: puncture 1 cap using device; one dose = 2 inhalations lorazepam [Ativan] 1 mg tablet 1 mg PO BID PRN (Reason: anxiety) Qty: 60 3RF Rx Instructions: Take one tablet twice per day as needed for anxiety topiramate [Topamax] 50 mg tablet 50 mg PO .evening Qty: 30 6RF Rx Instructions: Take one tablet every evening trazodone 150 mg tablet 150 mg PO BEDTIME PRN (Reason: insomnia) Qty: 60 3RF Rx Instructions: May take one tablet at bedtime as needed for sleep, may repeat dose in 1 hour if not asleep ziprasidone HCl [Geodon] 80 mg capsule 80 mg PO BID Qty: 60 6RF Rx Instructions: Take one capsule in am and evening with supper (500 calories each meal) (DME) Left Thumb Spica Brace See Rx Instructions .Route .MEDSUPPLY Qty: 1 0RF Rx Instructions: As directed ([facility]) OneTouch Ultra Blue Test Strip Strip See Rx Instructions .ROUTE .MEDSUPPLY Qty: 100 0RF Rx Instructions: three times a week (DME) Lancets See Rx Instructions .Route .MEDSUPPLY Qty: 100 0RF Rx Instructions: Use daily for blood glucose testing ibuprofen 800 mg tablet See Rx Instructions .ROUTE .COMPLEX Qty: 90 0RF Dose Instruction: TAKE 1 TABLET BY MOUTH THREE TIMES DAILY NEEDED FOR PAIN *take with food* Rx Instructions: TAKE 1 TABLET BY MOUTH THREE TIMES DAILY NEEDED FOR PAIN *take with food* glipizide 5 mg tablet extended release 24hr See Rx Instructions .ROUTE .COMPLEX Qty: 30 0RF Dose Instruction: TAKE 1 TABLET BY MOUTH EVERY DAY Rx Instructions: TAKE 1 TABLET BY MOUTH EVERY DAY (DME) OneTouch Ultra Test Strip See Rx Instructions .ROUTE .COMPLEX Qty: 100 0RF Dose Instruction: USE DIRECTED Rx Instructions: USE DIRECTED simvastatin 20 mg tablet See Rx Instructions .ROUTE .COMPLEX Qty: 90 1RF Dose Instruction: TAKE 1 TABLET BY MOUTH EVERY DAY Rx Instructions: TAKE 1 TABLET BY MOUTH EVERY DAY Referrals: Marga Higgins DO [Primary Care Provider, MASTER POLICE DETECTIVE] Print Language: Kazakh Coding Level of Care Code ED Nailing Machine Operator Automatic for Francisco Mcdermott
--- OUTSIDE RECORDS SUMMARY | 2024-10-17 12:53 | XMS_ITS | Encounter Summary ---
Author Organization [facility] Address [address] [place] [address] Care Team Providers Care Operation Supervisor Name Role Phone Unavailable Primary Care Provider Unavailabl e Encounter Details Date Type Department Care Team (Late st Contact Info) Description 06/16/2005 Outpatient [facility] [address] [place] [id number] Chano Tidwell MD [address] [place] [id number] Hodgkin's Disease, Unspecified (CMS/HCC) (Primary Dx) Social History Tobacco Use Types Packs/Day Years Used Date Smoking Tobacco: Never Assessed Comments Unknown Sex and Gender Information Value Date Recorded Sex Assigned at Not on file Legal Sex Female 4:21 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 Gender Identity Not on file Sexual Orientation Not on file documented as of this encounter Plan of Treatment Not on file documented as of this encounter Procedures Procedure Name Priority Date/Time Associated Diagnosis Comments PET TUMOR OR INFECTION IMG W CT SKB MDTH Routine 06/16/2005 11:28 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 documented in this encounter Results * PET TUMOR IMG W CT SKL BSE MID THG (06/16/2005 11:28 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) Anatomical Region Laterality Modality Other 06/16/2005 11:2 8 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 Narrative 06/16/2005 11:28 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 06/16/2005 Radiopharmaceutical: [id number] Dose: 10 mCi Reason for Consultation: Hodgkin's disease. Evaluation for disease extent. RADIONUCLIDE PET METABOLIC TUMOR IMAGING, RESTAGING OF HODGKIN'S LYMPHOMA: After the intravenous administration of S-75-Smeolfnlmymydhokld (FDG), a series of overlapping emission and transmission PET images were obtained on a dedicated full-ring detector PET scanner. The area imaged spanned the region from the lower cerebrum through the upper thighs. Attenuation-corrected planar 3-D images and volumetric tomographic images in the coronal, transaxial, and parasagittal projections were reviewed. A nondiagnostic, noncontrast, low-resolution CT scan was performed in conjunction with this examination for the purposes of attenuation correction and anatomic localization. Evaluation of the imaged head and neck region demonstrates physiologic tracer distribution. Evaluation of the thorax demonstrates physiologic tracer distribution throughout both lung field regions. Evaluation of the mediastinum demonstrates a mild to moderate focal increase in metabolic activity in the very lower right paratracheal / proximal right peribronchial region. These do appear to be associated with enlarged lymph nodes on the CT scan. The liver and spleen appear unremarkable. Evaluation of the abdomen and pelvis demonstrates physiologic tracer distribution. Evaluation of the remainder of the imaged soft tissues of the body and imaged bony skeleton also demonstrates physiologic tracer distribution. IMPRESSION: The only area of apparent active disease is in the mediastinum, as described above. No other areas of abnormal metabolic activity are noted at this time. jaw Dictated By: Felipe Hall M.D. Electronically Signed By: Felipe Hall M.D. Date Signed: 06/18/05 JAW Procedure Note 02/22/2009 06/16/2005 Radiopharmaceutical: [id number] Dose: 10 mCi Reason for Consultation: Hodgkin's disease. Evaluation for disease extent. RADIONUCLIDE PET METABOLIC TUMOR IMAGING, RESTAGING OF HODGKIN'S LYMPHOMA: After the intravenous administration of W-04-Inxrxtxdtnqakvnfcc (FDG), aseries of overlapping emission and transmission PET images were obtained on a dedicated full-ringdetector PET scanner. The area imaged spanned the region from the lower cerebrum through the upper thighs.Attenuation-corrected planar 3-D images and volumetric tomographic images in the coronal, transaxial, andparasagittal projections were reviewed. A nondiagnostic, noncontrast, low-resolution CT scan wasperformed in conjunction with this examination for the purposes of attenuation correction and anatomiclocalization. Evaluation of the imaged head and neck region demonstrates physiologictracer distribution. Evaluation of the thorax demonstrates physiologic tracer distribution throughout bothlung field regions. Evaluation of the mediastinum demonstrates a mild to moderate focalincrease in metabolic activity in the very lower right paratracheal / proximal right peribronchial region.These do appear to be associated with enlarged lymph nodes on the CT scan. The liver and spleen appearunremarkable. Evaluation of the abdomen and pelvis demonstrates physiologic tracer distribution.Evaluation of the remainder of the imaged soft tissues of the body and imaged bony skeleton also demonstratesphysiologic tracer distribution. IMPRESSION: The only area of apparent active disease is in the mediastinum, asdescribed above. No other areas of abnormal metabolic activity are noted at this time. miguel Dictated By: Felipe Hall M.D. Electronically Signed By: Felipe Hall M.D. Date Signed: 06/18/05 JAW Chano Tidwell MD PE ORDERABLES Final Result documented in this encounter Visit Diagnoses Diagnosis Hodgkin's disease, unspecified(201.90) (CMS/[facility]ER[facility])- Primary Hodgkin's disease, unspecified documented in this encounter
--- OUTSIDE RECORDS SUMMARY | 2024-10-17 12:53 | XMS_ITS | Clinical Summary ---
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
[2024-10-17 13:02] LABS: Hematocrit 44.1 % (36-47); Hemoglobin 14.10 g/dL (11.27-16.99); Mean Corpuscular HGB Conc 32.0 g/dL (30-55); Mean Corpuscular Hemoglobin 30.1 pg (27-33); Mean Corpuscular Volume 94.2 fl (85-98); Nucleated Red Blood Cells % 0 %; Platelet Count 189 10^3/cmm (157-399); Red Blood Count 4.68 10^6/uL (3.85-5.65); White Blood Count 10.36 10^3/uL (3.29-11.43)
[2024-10-17 13:13] LABS: INR 0.94 (0.8-1.2); Prothrombin Time 13.20 SECONDS (12.1-14.9)
[2024-10-17 13:14] LABS: Partial Thromboplastin Time 25.6 SECONDS (23.9-36.7)
--- NOTE | 2024-10-17 13:18 | PM.CONSULT ---
Providers/Reason For Consult Consulting Physician/Specialty*: Wilder Delgadillo MD neurology and epilepsy Reason for Consult*: Stroke alert emergency department room #10 Primary Care Provider: Marga Higgins DO History of Present Illness History of Present Illness Rolf Solorzano) Rachel Rios is a 54 year old female with a history of non-Hodgkin's lymphoma status postchemotherapy. Patient also has a history of type 2 diabetes mellitus treated with Ozempic and hypoparathyroidism, nicotine dependence, borderline personality disorder, schizoaffective disorder and peripheral neuropathy due to chemotherapy. The patient reported that she started Ozempic 4 days prior to presenting to the [facility] emergency department. Patient stated that she went to bed around 8 PM on 10/16/2024 and woke up on 10/17/2024 at 7 AM with a sensation at her tongue was swelling, sore throat and worsening of her baseline dysarthria and severe chest pressure and dizziness with standing or when closing her eyes described as lightheadedness not vertigo. NIH stroke score =1 (mild dysarthria) Point of contact glucose Accu-Chek 138 Stat noncontrast thrombolytic head CT 10/17/2024 negative for acute findings On examination patient had some white exudate in the posterior throat and over the lateral tongue she had some redness on the side. Difficult to determine if the white exudate is residual food from eating a hot dog prior to presenting to the emergency department or actual bacterial fungal exudate Drug allergies: Vicodin which resulted in blister Aspirin which resulted in hives Thorazine which resulted in hives Celexa which resulted in hives Codeine which resulted in a rash Prozac which resulted in hives Latex which resulted in blisters Paxil which resulted in drowsiness Penicillin which resulted in anaphylaxis Sulfa which resulted in difficulty breathing Effexor which resulted in headaches Hand tag stringer which resulted in hives Current medications: Flonase nasal spray 2 sprays intranasally daily as needed Glipizide XR 5 mg p.o. to take as directed Ozempic Zocor 20 mg to take as directed Ativan 1 mg p.o. twice daily as needed Ibuprofen 800 mg to take as instructed Topamax 50 mg p.o. nightly Trazodone 150 mg p.o. nightly Ziprasidone 80 mg p.o. twice daily Past medical history: Non-Hodgkin's lymphoma status postchemotherapy Type 2 diabetes mellitus Chronic obstructive pulmonary disease Bacterial bronchitis Pulmonary nodule/lesion Nicotine dependence Psychiatric care Familial hypo-Calciuric hypercalcemia Chronic posttraumatic stress disorder Schizoaffective disorder Habits: The patient smokes 1/3 pack/day. She denied other drug use. Family history: Remarkable for mother who experienced a stroke Social history: The patient lives with a friend Review of Systems General: Reports: 10 or more systems reviewed and unremarkable except in HPI and below Medications/Allergies Home Medications ?Medication ?Instructions ?Recorded ?Confirmed ?Last Taken ?Type fluticasone propionate 50 2 spray intranasal DAILY PRN 05/11/19 10/17/24 Unknown History mcg/actuation nasal Allergy Symptoms spray,suspension blood sugar diagnostic (OneTouch #100 ea 01/30/21 10/17/24 Unknown Rx Ultra Test strips) blood sugar diagnostic #100 ea 08/12/21 10/17/24 Unknown Rx Lancets #100 ea 04/14/23 10/17/24 Unknown Rx ibuprofen 800 mg tablet See Rx Instructions .Route 05/18/23 10/17/24 Unknown Rx .COMPLEX #90 tabs tiotropium bromide 18 mcg capsule 1 cap inhalation DAILY #60 06/14/23 10/17/24 Unknown Rx with inhalation device (Spiriva inhalations with HandiHaler) lorazepam 1 mg tablet (Ativan) 1 mg PO BID PRN anxiety #60 tabs 03/15/24 10/17/24 Unknown Rx glipizide 5 mg tablet, extended See Rx Instructions .Route 03/27/24 10/17/24 Unknown Rx release 24 hr .COMPLEX #30 tabs blood sugar diagnostic (OneTouch #100 ea 04/11/24 10/17/24 Unknown Rx Ultra Test strips) simvastatin 20 mg tablet See Rx Instructions .Route 07/17/24 10/17/24 Unknown Rx .COMPLEX #90 tabs Left Thumb Spica Brace #1 ea 08/15/24 10/17/24 Unknown Rx topiramate 50 mg tablet (Topamax) 50 mg PO .evening #30 tabs 08/18/24 10/17/24 Unknown Rx trazodone 150 mg tablet 150 mg PO BEDTIME PRN insomnia #60 08/18/24 10/17/24 Unknown Rx tabs ziprasidone HCl 80 mg capsule 80 mg PO BID #60 caps 08/18/24 10/17/24 Unknown Rx (Geodon) Allergies Allergy/AdvReac Type Severity Reaction Status Date / Time acetaminophen (From Vicodin) Allergy ALGY-Bliste Verified 10/17/24 08:38 r aspirin Allergy ALGY-Hives Verified 10/17/24 08:38 chlorpromazine (From Allergy ALGY-Hives Verified 10/17/24 08:38 Thorazine) citalopram (From Celexa) Allergy ALGY-Hives Verified 10/17/24 08:38 codeine Allergy ALGY-Rash Verified 10/17/24 08:38 fluoxetine (From Prozac) Allergy ALGY-Hives Verified 10/17/24 08:38 hydrocodone (From Vicodin) Allergy ALGY-Bliste Verified 10/17/24 08:38 r latex Allergy ALGY-Bliste Verified 10/17/24 08:38 r paroxetine (From Paxil) Allergy ADR-Drowsy Verified 10/17/24 08:38 Penicillins Allergy ALGY-Anaphy Verified 10/17/24 08:38 laxis Sulfa (Sulfonamide Allergy ALGY-Difficulty Verified 10/17/24 08:38 Antibiotics) Breathing venlafaxine (From Effexor) Allergy ADR-Headach Verified 10/17/24 08:38 e hand tag stringer Allergy ALGY-Hives Uncoded 08/18/24 13:06 PFSH Acute PFSH: Medical History (Updated 10/17/24 @ 13:38 by Wilder Delgadillo MD) Screening for breast cancer Psychiatric care Psychiatric care Nicotine dependence, cigarettes, uncomplicated Peripheral neuropathy due to chemotherapy GERD (gastroesophageal reflux disease) Lymphoma Tobacco abuse Family history of abdominal aortic aneurysm (AAA) Type 2 diabetes mellitus with other specified complication Personal history of traumatic brain injury Chronic post-traumatic stress disorder Panic disorder with agoraphobia Borderline personality disorder Schizoaffective disorder, bipolar type Surgical History Hx of tonsillectomy Hx of tubal ligation Hx of lymph node biopsy Hx of section Family History Other Alzheimer disease Aneurysm of abdominal aorta Cancer Diabetes Heart murmur Multiple personality disorder Stroke Social History Smoking and tobacco/nicotine status: current every day tobacco/nicotine user Quit status (tobacco/nicotine): has tried quititng Second hand smoke exposure: Yes (mother) Alcohol intake: former Substance/Drug Use: never Adopted: No Caregiver/support person: No Lives independently: Yes (mother lives with her) Household members: family and friend(s) Housing: Apartment Marital status: Number of children: 3 Number of grandchildren: 11 Highest education level completed: 8th Grade service: No Current occupational status: disabled Pets and animals: No Leisure activites: games, fishing and other Leisure activities details: camping, sol Sexually active: No Do you think of yourself as: Straight/Heterosexual Current gender identity: Female Yin/Confucianism: Church Special yin needs: No Agree to transfusion: Yes Female Reproductive History: Para: 3 Vitals/I&O/Wt Last Vital Signs Temp 97.9 F 10/17/24 12:26 Pulse 89 10/17/24 12:26 Resp 16 10/17/24 12:26 BP 150/99 10/17/24 12:26 Pulse Ox 97 10/17/24 12:26 O2 Del Method Room Air 10/17/24 12:26 Physical Exam Narrative: NIH stroke score =1 (mild dysarthria) Point of contact glucose Accu-Chek 138 Stat noncontrast thrombolytic head CT 10/17/2024 negative for acute findings On examination patient had some white exudate in the posterior throat and over the lateral tongue she had some redness on the side. Difficult to determine if the white exudate is residual food from eating a hot dog prior to presenting to the emergency department or actual bacterial fungal exudate Orthostatic blood pressure checks: Blood pressure 130/87 with heart rate in the 80s lying Blood pressure 128/88 with heart rate of 91 sitting Blood pressure 112/66 with heart rate of 101 after standing for less than 1 minute The patient is alert and oriented x 3. Speech fluent but dysarthric. Patient able to repeat. Patient follows commands. Pupils 4 mm round reactive to light and accommodation. Extraocular movements intact. There were no obvious nystagmus on extraocular movements. Patient did report feeling lightheaded with upward and downward gaze. Cranial nerves II through XII intact. Patient throat did reveal some white exudate in the posterior pharynx region and there were some slight lesions on the lateral sides of her tongue's bilaterally pupils 4 mm round reactive to light and accommodation. Extraocular movements intact. Extraocular movements intact. There were no obvious nystagmus on extraocular movements. Patient did report feeling lightheaded during upward and downward gaze bilaterally. Visual giles appear to be full via confrontation. Motor testing 5/5 bilaterally. There was no drift. [id number] and nkni-[id number] maneuvers were unrevealing. Sensory examination was intact to touch. There was no extinction on double sensory stimulation Throat revealed some questionable white exudate in the posterior pharynx. It was difficult to determine if this was bacterial or fungal exudate versus secondary to patient needing a hot dog prior to presenting to the [facility] emergency department. There was some questionable areas of redness on the lateral sides of his tongue bilaterally there was no active bleeding. Lungs clear. Heart regular rhythm and rate. Extremities were negative for cyanosis. Data 10/17/24 12:50 10/17/24 12:50 A&P Assessment and plan 1. Dysarthria: Impression: 1. Dysarthria etiology unclear rule out throat infection versus secondary to Ozempic. Clinical history and examination not consistent with posterior circulation stroke NIH stroke score =1 2. History of non-Hodgkin's lymphoma status postchemotherapy 3. Type 2 diabetes mellitus started on Ozempic approximately 4 days prior to presenting to the [facility] emergency department 4. Sore throat at an lateral tongue lesion/redness with questionable white exudate in the throat rule out infection 5. Orthostasis 6. Chest pain/pressure Plan: 1. Agree with observation admission 2. Recommend obtaining head MRI with and without contrast to assess for posterior circulation stroke and to evaluate for any brain lesion since patient has history of non-Hodgkin's lymphoma status post chemotherapy 3. Recommend cardiac telemetry monitoring and cardiac evaluation for chest pain/chest pressure and to assess orthostasis 4. Recommend obtaining carotid duplex study to assess for carotid or vertebral artery stenosis 5. Fall precautions 6. Neurochecks and vital signs per NIH stroke protocol although the patient's clinical symptoms are more suggestive of possible throat infection versus possible reaction to Ozempic 7. Stroke education for patient and family 2. Tongue swellin. Sore throat: PDMP PDMP Reviewed: Not Reviewed Coding Level of Care Code 69731 Diagnoses Dysarthria R47.1 Tongue swelling R22.0 Sore throat J02.9
[2024-10-17 13:19] LABS: Troponin(5th) Baseline < 6 ng/L (0-10)
[2024-10-17 13:20] LABS: Alanine Aminotransferase 10 U/L (0-33); Albumin Level 3.9 g/dL (3.5-5.2); Alkaline Phosphatase 94 U/L (35-105); Anion Gap 15.9 (5-19); Aspartate Amino Transferase 8 U/L (0-32); Blood Urea Nitrogen 5 mg/dL (6-20); Calcium 10.8 mg/dL (8.5-10.5); Carbon Dioxide 22 mmol/L (22-29); Chloride 107 mmol/L (98-107); Globulin 2.5 g/dL (1.3-4.6); Glucose 155 mg/dL (65-115); Osmolality Calculated 292 mOsm/kg (285-295); Potassium 3.9 mmol/L (3.5-5.1); Sodium 141 mmol/L (136-145); Total Protein 6.4 g/dL (6.6-8.7)
[2024-10-17 13:56] LABS: Glucose Urine UA Negative (Normal); Nitrate Urine Negative (Negative); Specific Gravity, Urine 1.013 (1.005-1.030)
[2024-10-17 13:57] LABS: Rapid Strep A Test Negative (Negative)
[2024-10-17 13:59] LABS: Add Urine Microscopic? YES
[2024-10-17 14:02] LABS: PCP Screen Urine Negative (Negative)
[2024-10-17 14:40] VITALS: PULSE 74; O2SAT 96
[2024-10-17 14:51] VITALS: BP 174/89; PULSE 74; O2SAT 96
[2024-10-17 15:10] LABS: Troponin 5 2HR < 6.0 ng/L (0-10); Troponin 5 2HR Delta 0 ABS# (0-10)
--- NOTE | 2024-10-17 16:15 | USCV_ITS ---
Rolf Rios Age: 54 Gender: F : 1970 Exam Date: 10/17/2024 18:33 Ordering Phys: John Paul Benoit MD Technologist: DOMINIQUE [place] [facility] [place]ication: sob, DM2, NHL, HL, COPD, obesity BP: 150 / 99 HR: 72 Rhythm: Sinus Technical Quality: Adequate MEASUREMENTS (Male / Female) Normal Values 2D ECHO LV Diastolic Diameter PLAX 4.8 cm 4.2 - 5.9 / 3.9 - 5.3 cm IVS Diastolic Thickness 1.2 cm 0.6 - 1.0 / 0.6 - 0.9 cm IVS Systolic Thickness 1.7 cm LVPW Diastolic Thickness 1.4 cm 0.6 - 1.0 / 0.6 - 0.9 cm LVPW Systolic Thickness 1.8 cm LVOT Diameter 2.0 cm LV Ejection Fraction 2D Teich 67.2 % LV Ejection Fraction MOD 4C 58.7 % LV Ejection Fraction MOD 2C 56.5 % LV Ejection Fraction 2C AL 57.7 % LA Diameter 3.8 cm Aorta at Sinotubular Diameter 2.1 cm IVC Diameter 1.7 cm M-MODE LA Ao Ratio MM 1.9 AV Cusp Separation MM 1.9 cm DOPPLER AV Peak Velocity 139.0 cm/s LVOT Peak Velocity 87.0 cm/s AV Area Cont Eq vti 1.9 cm squared AV Area Cont Eq pk 1.9 cm squared MV Area PHT 4.5 cm squared Mitral E to A Ratio 1.1 TV Peak E Velocity 53.0 cm/s PV Peak Velocity 95.0 cm/s FINDINGS Left Ventricle Normal left ventricular size and systolic function, EF 59%.. No regional wall motion abnormalities. Mild left ventricular hypertrophy. Grade I/IV diastolic dysfunction (abnormal relaxation filling pattern), normal to mildly elevated filling pressures. Right Ventricle The right ventricle is normal in size and function. Right Atrium The right atrium is normal in size. Left Atrium Normal left atrial size. Mitral Valve Trace mitral valve regurgitation. Aortic Valve No gross abnormalities noted Tricuspid Valve No gross abnormalities noted Pulmonic Valve No gross abnormalities noted Pericardium Normal pericardium without effusion. Aorta Normal ascending aorta dimension. IVC Normal inferior vena cava. CONCLUSIONS Normal left ventricular size and systolic function, EF 59%.. No regional wall motion abnormalities. Mild left ventricular hypertrophy. Grade I/IV diastolic dysfunction (abnormal relaxation filling pattern), normal to mildly elevated filling pressures. Trace mitral valve regurgitation. Normal chamber sizes There is no pericardial effusion. There are no intracardiac masses. No similar previous studies are available for comparison Dr Shobha Rhodes MD FAC (Electronically Signed) Final Date: 17 October 2024 22:28 S
--- NOTE | 2024-10-17 16:17 | USCV_ITS ---
Rolf Rios Age: 54 Gender: F : 1970 Exam Date: 10/17/2024 16:47 Ordering Phys: John Paul Benoit MD Technologist: USR [place] [facility] [place]: CVA Risk Factors: Previous Vascular Surgery: Right Brachial BP: / Left Brachial BP: / Right Left Velocity (cm/s) Spectral Plaque Velocity (cm/s) Spectral Plaque Syst/Diast Broadening Syst/Diast Broadening 72.40/ 20.60 Prox CCA 96.10 / 25.30 92.50/ 26.90 Mid CCA 89.70 / 21.40 77.00/ 20.40 Distal CCA 98.60 / 23.20 119.80/39.60 Prox ICA 89.40 / 15.80 90.70/ 22.10 Mid ICA 65.50 / 25.00 99.20/ 45.70 Distal ICA 66.70 / 26.20 98.50 ECA 89.40 1.60 ICA/CCA 0.90 Antegrade Vertebral Antegrade 58.50/ 22.10 cm/s 51.30/ 15.40 cm/s Tri Subclavian Tri 63.20 172.9 0 CONCLUSIONS Right ICA stenosis <50%. Moderate atheromatous plaque right carotid bulb/ICA. Left ICA stenosis <50%. Moderate atheromatous plaque left carotid bulb/ICA. Intimal thickening in the common carotid arteries and internal carotid arteries bilaterally. Normal antegrade Doppler flow noted in the right vertebral artery. Normal antegrade Doppler flow noted in the left vertebral artery. Norberto Guy MD (Electronically Signed) Final Date: 18 October 2024 09:11 S
--- NOTE | 2024-10-17 16:24 | PM.HP ---
Providers/Chief Complaint Admitting Physician: John Paul Benoit MD Primary Care Provider: Marga Higgins DO Chief Complaint: dr jameson, stroke like symptoms History of Present Illness Rolf Rios (Casey) is a 54 year old female with a past medical history of type 2 diabetes, non-Hodgkin's lymphoma s/p chemotherapy, hyperlipidemia, COPD, who presents [facility] due to word finding difficulty, trouble swallowing, sore throat. Currently patient is alert oriented x 3, following all commands, I cannot discern any facial droop, slurring of her words, no focal weakness, her biggest complaint is difficulty swallowing, sore throat, globus sensation. According to patient she went to bed at about 10 PM, nothing out of the ordinary, she woke up in the middle of the night, went to the bathroom without any issues, she woke up at about 7 AM this morning, she started noticing that she had a sore throat, globus sensation, tongue swelling, dysarthria, chest pain, and dizziness. Denies any vertigo, her NIH stroke scale is 1, dysarthria, she denies a cardiovascular history, denies any shortness of breath, no history of strokes, no focal weakness, no facial droop, very slight slurring of words Review of Systems Const: Denies: fever(s) or chills Card: Reports: chest pain Resp: Denies: dyspnea GI: Denies: abdominal pain Medications/Allergies Home Medications ?Medication ?Instructions ?Recorded ?Confirmed ?Last Taken ?Type fluticasone propionate 50 2 spray intranasal DAILY PRN 05/11/19 10/17/24 Unknown History mcg/actuation nasal Allergy Symptoms spray,suspension blood sugar diagnostic (OneTouch #100 ea 01/30/21 10/17/24 Unknown Rx Ultra Test strips) blood sugar diagnostic #100 ea 08/12/21 10/17/24 Unknown Rx Lancets #100 ea 04/14/23 10/17/24 Unknown Rx tiotropium bromide 18 mcg capsule 1 cap inhalation DAILY #60 06/14/23 10/17/24 10/17/24 Rx with inhalation device (Spiriva inhalations with HandiHaler) glipizide 5 mg tablet, extended See Rx Instructions .Route 03/27/24 10/17/24 10/17/24 Rx release 24 hr .COMPLEX #30 tabs blood sugar diagnostic (OneTouch #100 ea 04/11/24 10/17/24 Unknown Rx Ultra Test strips) simvastatin 20 mg tablet See Rx Instructions .Route 07/17/24 10/17/24 10/17/24 Rx .COMPLEX #90 tabs Left Thumb Spica Brace #1 ea 08/15/24 10/17/24 Unknown Rx topiramate 50 mg tablet (Topamax) 50 mg PO .evening #30 tabs 08/18/24 10/17/24 10/16/24 Rx trazodone 150 mg tablet 150 mg PO BEDTIME PRN insomnia #60 08/18/24 10/17/24 10/16/24 Rx tabs ziprasidone HCl 80 mg capsule 80 mg PO BID #60 caps 08/18/24 10/17/24 10/17/24 08:00 Rx (Geodon) ibuprofen 200 mg tablet (Advil) 800 mg PO Q6H PRN Fever Or Pain 10/17/24 10/17/24 Unknown History semaglutide 0.25 mg or 0.5 mg (2 0.25 mg SUBCUT Q7D 10/17/24 10/17/24 10/15/24 History mg/3 mL) subcutaneous pen injector (Ozempic) Allergies Allergy/AdvReac Type Severity Reaction Status Date / Time acetaminophen (From Vicodin) Allergy ALGY-Bliste Verified 10/17/24 08:38 r aspirin Allergy ALGY-Hives Verified 10/17/24 08:38 chlorpromazine (From Allergy ALGY-Hives Verified 10/17/24 08:38 Thorazine) citalopram (From Celexa) Allergy ALGY-Hives Verified 10/17/24 08:38 codeine Allergy ALGY-Rash Verified 10/17/24 08:38 fluoxetine (From Prozac) Allergy ALGY-Hives Verified 10/17/24 08:38 hydrocodone (From Vicodin) Allergy ALGY-Bliste Verified 10/17/24 08:38 r latex Allergy ALGY-Bliste Verified 10/17/24 08:38 r paroxetine (From Paxil) Allergy ADR-Drowsy Verified 10/17/24 08:38 Penicillins Allergy ALGY-Anaphy Verified 10/17/24 08:38 laxis Sulfa (Sulfonamide Allergy ALGY-Difficulty Verified 10/17/24 08:38 Antibiotics) Breathing venlafaxine (From Effexor) Allergy ADR-Headach Verified 10/17/24 08:38 e hand racket stringer Allergy ALGY-Hives Uncoded 08/18/24 13:06 PFSH Acute PFSH: Medical History Screening for breast cancer Psychiatric care Psychiatric care Nicotine dependence, cigarettes, uncomplicated Peripheral neuropathy due to chemotherapy GERD (gastroesophageal reflux disease) Lymphoma Tobacco abuse Family history of abdominal aortic aneurysm (AAA) Type 2 diabetes mellitus with other specified complication Personal history of traumatic brain injury Chronic post-traumatic stress disorder Panic disorder with agoraphobia Borderline personality disorder Schizoaffective disorder, bipolar type Surgical History Hx of tonsillectomy Hx of tubal ligation Hx of lymph node biopsy Hx of section Family History Other Alzheimer disease Aneurysm of abdominal aorta Cancer Diabetes Heart murmur Multiple personality disorder Stroke Social History Smoking and tobacco/nicotine status: current every day tobacco/nicotine user Quit status (tobacco/nicotine): has tried quititng Second hand smoke exposure: Yes (mother) Alcohol intake: former Substance/Drug Use: never Adopted: No Caregiver/support person: No Lives independently: Yes (mother lives with her) Household members: family and friend(s) Housing: Apartment Marital status: Number of children: 3 Number of grandchildren: 11 Highest education level completed: 8th Grade service: No Current occupational status: disabled Pets and animals: No Leisure activites: games, fishing and other Leisure activities details: rose marieingsol Sexually active: No Do you think of yourself as: Straight/Heterosexual Current gender identity: Female Yin/Voodoo: Spiritism Special yin needs: No Agree to transfusion: Yes Female Reproductive History: Para: 3 Vitals/I&O/Wt Last Vital Signs Temp 97.9 F 10/17/24 12:26 Pulse 74 10/17/24 14:51 Resp 16 10/17/24 12:26 BP 174/89 10/17/24 14:51 Pulse Ox 96 10/17/24 14:51 O2 Del Method Room Air 10/17/24 14:54 Weight last 48 hrs Weight 119.833 kg Physical Exam Const: COMMON NORMALS: no acute distress and patient oriented x3 HENMT: COMMON NORMALS: normocephalic HEAD & SCALP: normocephalic Eye: COMMON NORMALS: Equal, round and reactive pupils present and EOMs intact bilaterally Neck/C-Spine: COMMON NORMALS: no JVD OTHER: Posterior pharynx, white patches on bilateral tonsils, bilateral bilateral posterior pharynx, white patches, white discharge, on tongue Resp: COMMON NORMALS: normal respiratory effort, No retractions, No use of accessory muscles and clear to auscultation bilaterally AUSCULTATION: clear to auscultation bilaterally Cardio: COMMON NORMALS: regular rate, regular rhythm, S1 normal heart sound present and S2 normal heart sound present RATE: regular rate RHYTHM: regular rhythm HEART SOUNDS: S1 normal heart sound present and S2 normal heart sound present GI: COMMON NORMALS: Normal to inspection, nondistended, normoactive bowel sounds present, Soft to palpation and non-tender Extremity: COMMON NORMALS: no calf tenderness and no pedal edema Neuro: COMMON NORMALS: patient oriented x3, CN's II-XII intact bilaterally, moves all extremities, no focal motor deficits and no sensory deficits noted Psych: COMMON NORMALS: mental status grossly normal Data 10/17/24 12:50 10/17/24 12:50 A&P Assessment and plan 1. Dysarthria: 2. Tongue swellin. Sore throat: Plan: Chest pain -EKGs, troponins, telemetry monitoring - Has aspirin allergy, Plavix, statin - Cardiac echo - youth nutritional monitor Dysarthria - NIH 1 on admission - Plavix, statin - Cardiac echo - Carotid ultrasound -MRI brain - Telemetry monitoring - Neurochecks, NIH stroke scale, aspiration precautions, speech therapy eval Sore throat, tongue swelling - Throat culture - Strep - Diflucan - CT neck Ozempic side effect? Will hold Ozempic Full code DVT prophylaxis PDMP PDMP Reviewed: Not Reviewed Attestations Medical Necessity Statement*: Patient past hospitalization for dysarthria, tongue swelling, swelling, chest pain, dysarthria, greater than 2 midnight Diagnoses Dysarthria R47.1 Tongue swelling R22.0 Sore throat J02.9
--- NOTE | 2024-10-17 16:29 | CTR_ITS ---
PROCEDURE INFORMATION: Exam: CT Neck With Contrast Exam date and time: 10/17/2024 5:26 PM Age: 54 years old Clinical indication: Other: Sore throat; Prior surgery; Surgery date: 6+ months; Surgery type: Port; Additional info: Lymphadenoapthy, sore throat TECHNIQUE: Imaging protocol: Computed tomography of the neck with contrast. Radiation optimization: All CT scans at this facility use at least one of these dose optimization techniques: automated exposure control; mA and/or kV adjustment per patient size (includes targeted exams where dose is matched to clinical indication); or iterative reconstruction. Contrast material: OMNIPAQUE 350; Contrast volume: 100 ml; Contrast route: INTRAVENOUS (IV); COMPARISON: CT head thrombolytic [id number] 10/17/2024 12:38 PM RADIATION DOSE METRICS: Total DLP (mGy-cm): 286.57 FINDINGS: Paranasal sinuses: Mild mucosal thickening in the ethmoid air cells. Salivary glands: Normal. Glands are normal in size. Oral cavity: Enhancement and mild lobulated contour involving mucosa of the posterior tongue base, in the region of the vallecula. Pharynx: Unremarkable. No significant tonsillar enlargement. Larynx: Unremarkable. Epiglottis is normal. Thyroid: The thyroid gland is multinodular. A 15 mm nodule is present in the upper right thyroid lobe. Trachea: Small tracheal diverticulum is noted. Upper left paratracheal node measures 6 mm. Lungs: 4 mm nodule in the right apical region. 6 mm irregular nodule anteriorly in the right upper lobe, with associated linear density extending to the pleura. Numerous small subpleural blebs are noted in the visualized upper lungs. Esophagus: Visualized proximal esophagus contains gas and demonstrates mild mural thickening. Lymph nodes: No cervical lymph node enlargement. Vasculature: Mild carotid bulb calcification without narrowing. Bones/joints: Unremarkable. No acute fracture. Soft tissues: Unremarkable. No significant soft tissue swelling. CT/CT neck w con* [id number] IMPRESSION: 1. Mild mucosal enhancement and nodularity to the posterior tongue base, which could represent normal findings, inflammatory changes other processes. Clinical visualization is recommended. 2. Multinodular thyroid gland. Follow-up non-emergent thyroid ultrasound is recommended. 3. Right upper lobe pulmonary nodules. For patients at low risk (minimal or absent history of smoking and of other known risk factors), no routine follow-up is indicated. For patients at high risk (history of smoking or of other known risk factors), consider optional CT Chest at 12 months. (Reference: Lisa) COMMENTS: Consistent with the [employer]'s Incidental Findings Committee white paper (J Am Wlilian Radiol 2015): In patients aged 35 years and older with an incidental thyroid nodule equal to or greater than 1.[address], MRI or extrathyroidal US, further evaluation with dedicated thyroid US is recommended for patients with normal life expectancy and without comorbidities. For smaller nodules without suspicious features, no further evaluation or follow up is recommended. REFERENCES: Lisa Sandra, et al. Guidelines for Management of Incidental Pulmonary Nodules Detected on CT Images: From the Fleischner Society 2017. Radiology. 2017;284(1):228-243.
[2024-10-17 16:33] VITALS: O2SAT 97
[2024-10-17 17:25] LABS: Procalcitonin 0.04 ng/mL (0-0.5); Thyroid Stimulating Hormone 1.34 uIU/mL (0.27-4.20)
[2024-10-17] MEDS: iohexol 350 mg/mL 500 mL Btl (per mL) IV (17:28)
[2024-10-17] MEDS: fluconazole premix 100 MG in empty flexible container 1 EACH 50 MG IV (17:36)
[2024-10-17] MEDS: nystatin 100,000 unit/mL UDC 5 mL 100000 UNIT PO ×2 (17:36→21:29)
[2024-10-17 17:38] LABS: Lactic Sepsis W/Reflex 1.6 mmol/L (0.5-2.2)
[2024-10-17 17:38] LABS: Cholesterol 139 mg/dL (0-200); HDL Cholesterol 39 mg/dL (60-100); Triglycerides 150 mg/dL (0-150)
[2024-10-17 17:40] LABS: Estmated Average Glucose 143; Hemoglobin A1C 6.6 % (4.0-6.0)
[2024-10-17 18:11] LABS: Rapid Strep A Test Negative (Negative)
--- NOTE | 2024-10-17 18:35 | ECG_ITS ---
[email or web address]: 2024-10-17 Pat Name: Rolf Rios (Casey) Department: Room: 254 Gender: Female Network Operations Lead: : 1970 Requested By: Jimmy Vieira Order Number: [id number] Reading MD: Shobha Rhodes M.D. Measurements Intervals Sacul Rate: 69 P: 20 NH: 167 QRS: 57 QRSD: 101 T: 54 QT: 395 QTc: 425 Interpretive Statements SINUS RHYTHM Compared to ECG 10/17/2024 12:33:10 No significant changes Electronically Signed On 10-17-2024 18:35:17 CDT by Shobha Rhodes M.D. [email or web address]
[2024-10-17 18:49] LABS: Troponin 5 6HR < 6.0 ng/L (0-10); Troponin 5 6HR Delta 0 ng/L (0-12)
[2024-10-17 20:00] VITALS: BP 135/77; PULSE 80; RESP 16; TEMP 36.7; O2SAT 96
[2024-10-17 23:55] VITALS: BP 133/79; PULSE 73; RESP 17; TEMP 36.6; O2SAT 98
[2024-10-18 03:50] VITALS: BP 136/69; PULSE 63; RESP 16; TEMP 36.9; O2SAT 97
[2024-10-18 06:04] LABS: Hematocrit 43.0 % (36-47); Hemoglobin 13.40 g/dL (11.27-16.99); Mean Corpuscular HGB Conc 31.2 g/dL (30-55); Mean Corpuscular Hemoglobin 29.6 pg (27-33); Mean Corpuscular Volume 95.1 fl (85-98); Nucleated Red Blood Cells % 0 %; Platelet Count 190 10^3/cmm (157-399); Red Blood Count 4.52 10^6/uL (3.85-5.65); White Blood Count 9.40 10^3/uL (3.29-11.43)
[2024-10-18 06:26] LABS: Alanine Aminotransferase 10 U/L (0-33); Albumin Level 3.7 g/dL (3.5-5.2); Alkaline Phosphatase 104 U/L (35-105); Anion Gap 15.1 (5-19); Aspartate Amino Transferase 10 U/L (0-32); Blood Urea Nitrogen 9 mg/dL (6-20); Calcium 11.0 mg/dL (8.5-10.5); Carbon Dioxide 24 mmol/L (22-29); Chloride 103 mmol/L (98-107); Creatinine Clr Calc Pharmacy 124.5372; Globulin 3.0 g/dL (1.3-4.6); Glucose 128 mg/dL (65-115); Magnesium 2.1 mg/dL (1.7-2.3); Osmolality Calculated 286 mOsm/kg (285-295); Potassium 4.1 mmol/L (3.5-5.1); Sodium 138 mmol/L (136-145); Total Protein 6.7 g/dL (6.6-8.7)
[2024-10-18] MEDS: nystatin 100,000 unit/mL UDC 5 mL 100000 UNIT PO ×2 (07:36→12:34)
[2024-10-18 07:41] VITALS: BP 135/84; PULSE 83; RESP 17; TEMP 36.8; O2SAT 96
[2024-10-18] MEDS: LORazepam 1 MG/0.5 ML injection 0.5 MG IVP (08:49)
--- NOTE | 2024-10-18 09:40 | PC.CHAP ---
Pastoral Care Encounter/Spiritual Assessment Type of Contact [] Declined awning spreader visit [] Patient/Family/Request visit [] Outpatient visit [] Follow-up visit [] Physician referral [] Code/Alert [x] Routine visit [] Staff referral [] Actively dying [] Patient sleeping [] Family support [] [] Out of room [] Palliative care [] [] Receiving care in room [] Pre-surgical visit [] Trauma [] Long length of stay [] ICU visit [] Other: Relational/Emotional Strength [x] Patient feels connected with others/family/visitors/staff [x] Distress [] Loneliness/isolation [] Abandonment Spirituality of Patient [x] Person of Yin [] Attends Advent of their Yin [x] Believes in Prayer [] Reads Bible or Advent materials [] There are Spiritual issues to be addressed 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 Interventions [x] Prayer [x] Active listening [x] Non-anxious presence [x] Spiritual/emotional support [] Crisis/trauma care [] Spiritual counseling [] Bereavement support [] Provided bereavement packet [] Provided Bible/devotional materials [] Provided toy/stuffed animal, coloring book to patient or family member [] Provided Communion [] Anointing/[place] [] Salvation [x] Completed spiritual assessment [] Other: Impact on Illness or Injury [] Angry [] Fearful [] Anxious [] Often cries [] Exhaustion [] Unable to work [] Unable to attend mu-ism [] Unable to walk/stand [] Unable to read [] Unable to drive [] Unable to eat/drink [] Unable to sleep [] Unable to be with family [] Patient intubated [] Other: Summary Time spent with patient 5 min
[2024-10-18 11:00] VITALS: BP 148/82; PULSE 69; RESP 17; TEMP 37.1; O2SAT 94
--- NOTE | 2024-10-18 12:14 | P.DS_ITS ---
Discharge Providers Date of Admission: 10/17/24 14:30 Date of Discharge: October 18, 2024 Attending Provider at Admission: John Paul Benoit MD Attending Provider at Discharge: John Paul Benoit MD Primary Care Provider: Marga Higgins DO Diagnoses at Discharge Discharge Diagnosis 1. Dysarthria: 2. Tongue swellin. Sore throat: Reason for Visit Reason for Visit: dr jameson, stroke like symptoms Hospital Course Hospital Course Rolf (Madi) Rachel Rios is a 54 year old female with a past medical history of type 2 diabetes, non-Hodgkin's lymphoma s/p chemotherapy, hyperlipidemia, COPD, who presents [facility] due to word finding difficulty, trouble swallowing, sore throat. Currently patient is alert oriented x 3, following all commands, I cannot discern any facial droop, slurring of her words, no focal weakness, her biggest complaint is difficulty swallowing, sore throat, globus sensation. According to patient she went to bed at about 10 PM, nothing out of the ordinary, she woke up in the middle of the night, went to the bathroom without any issues, she woke up at about 7 AM this morning, she started noticing that she had a sore throat, globus sensation, tongue swelling, dysarthria, chest pain, and dizziness. Denies any vertigo, her NIH stroke scale is 1, dysarthria, she denies a cardiovascular history, denies any shortness of breath, no history of strokes, no focal weakness, no facial droop, very slight slurring of words This is a 54-year-old female who presents [facility] Chest pain complaints - No recurrent chest pain - No significant delta troponin Chest pain -EKGs, troponins, telemetry monitoring - Has aspirin allergy, Plavix, statin - Cardiac echo CONCLUSIONS Normal left ventricular size and systolic function, EF 59%.. No regional wall motion abnormalities. Mild left ventricular hypertrophy. Grade I/IV diastolic dysfunction (abnormal relaxation filling pattern), normal to mildly elevated filling pressures. Trace mitral valve regurgitation. Normal chamber sizes There is no pericardial effusion. There are no intracardiac masses. No similar previous studies are available for comparison - threat monitoring analyst, no acute events - No recurrent chest pain - Will be discharged on Plavix, statin with a close follow-up with cardiology as outpatient Dysarthria - NIH 1 on admission, -Concerns for TIA -Dysarthria has resolved on discharge - Plavix, statin - Cardiac echo as above - Carotid ultrasound no acute findings -MRI brain MR/MR head wo con* [id number] IMPRESSION: 1. No acute diffusion abnormality or infarct. 2. Mild cerebral atrophy. 3. Moderate T2 and FLAIR signal hyperintensities in the subcortical white matter, predominantly the frontal and parietal lobes. This can be seen with small vessel change, diabetes, hypertension, migraines. 4. No prior infarct. - Telemetry monitoring -Monitor as inpatient no focal neurologic deficits, dysarthria has significantly resolved, - Patient was advised if she were to have a stroke call 911 Pharyngitis - Throat culture - Strep negative - Diflucan for concerns for oral candidiasis -On discharge patient's posterior pharynx looks clean, no patches seen -Will discharge on p.o. antibiotics for concerns for bacterial pharyngitis -Discharged on oral Diflucan for concern for oral candidiasis - CT neck CT/CT neck w con* [id number] IMPRESSION: 1. Mild mucosal enhancement and nodularity to the posterior tongue base, which could represent normal findings, inflammatory changes other processes. Clinical visualization is recommended. 2. Multinodular thyroid gland. Follow-up non-emergent thyroid ultrasound is recommended. 3. Right upper lobe pulmonary nodules. For patients at low risk (minimal or absent history of smoking and of other known risk factors), no routine follow-up is indicated. For patients at high risk (history of smoking or of other known risk factors), consider optional CT Chest at 12 months. (Reference: Lisa) For her multinodular thyroid, follow-up with Dr. Cobian for biopsy For her pulmonary nodules please follow-up with pulmonary for surveillance Ozempic side effect? DC Ozempic at discharge due to concerns for possible allergic reaction? . Hypercalcemia, monitor follow-up with Dr. Moreno Physical Exam Const: COMMON NORMALS: no acute distress and patient oriented x3 Resp: COMMON NORMALS: normal respiratory effort, No retractions, No use of accessory muscles and clear to auscultation bilaterally AUSCULTATION: clear to auscultation bilaterally Cardio: COMMON NORMALS: regular rate, regular rhythm, S1 normal heart sound present and S2 normal heart sound present RATE: regular rate RHYTHM: regular rhythm HEART SOUNDS: S1 normal heart sound present and S2 normal heart sound present GI: COMMON NORMALS: Normal to inspection, nondistended, normoactive bowel sounds present and non-tender Extremity: COMMON NORMALS: no pedal edema Neuro: COMMON NORMALS: patient oriented x3 Psych: COMMON NORMALS: mental status grossly normal Discharge Data Studies Completed and Pending Completed Studies During Hospitalization Category Date Time Status CT head thrombolytic [id number] Stat Cat Scan 10/17/24 12:[address] neck w con* [id number] Routine Cat Scan 10/17/24 16:29 Completed CXRP [XR chest 1V portable [id number]] Stat Exams 10/17/24 12:45 Completed MR head wo con* [id number] Routine MRI 10/18/24 16:17 Completed CV carotid duplex BI* [id number] Routine Ultrasound 10/17/24 16:17 Completed CV. echo complete* [id number] Routine Ultrasound 10/17/24 16:15 Completed Pending at discharge Category Date Time Status Complete Blood Count w/Auto AM LABS Lab 10/19/24 04:00 Ordered Complete Blood Count w/Auto AM LABS Lab 10/20/24 04:00 Ordered Comprehensive Metabolic Panel AM LABS Lab 10/19/24 04:00 Ordered Comprehensive Metabolic Panel AM LABS Lab 10/20/24 04:00 Ordered Magnesium AM LABS Lab 10/19/24 04:00 Ordered Magnesium AM LABS Lab 10/20/24 04:00 Ordered Phosphorus AM LABS Lab 10/19/24 04:00 Ordered Phosphorus AM LABS Lab 10/20/24 04:00 Ordered Streptococcus Culture Group A Stat Lab 10/17/24 13:44 Results Streptococcus Culture Group A Stat Lab 10/17/24 17:25 Received Radiology Impressions Head CT 10/17/24 12:35 IMPRESSION: 1. No evidence of intracranial hemorrhage or mass effect. 2. No acute intracranial findings. Notified Jimmy Vieira MD at 10/17/2024 12:48 PM. Chest X-Ray 10/17/24 12:45 IMPRESSION: Stable chest without acute abnormality. Neck CT 10/17/24 16:29 IMPRESSION: 1. Mild mucosal enhancement and nodularity to the posterior tongue base, which could represent normal findings, inflammatory changes other processes. Clinical visualization is recommended. 2. Multinodular thyroid gland. Follow-up non-emergent thyroid ultrasound is recommended. 3. Right upper lobe pulmonary nodules. For patients at low risk (minimal or absent history of smoking and of other known risk factors), no routine follow-up is indicated. For patients at high risk (history of smoking or of other known risk factors), consider optional CT Chest at 12 months. (Reference: Lisa) COMMENTS: Consistent with the [employer]'s Incidental Findings Committee white paper (J Am Willian Radiol 2015): In patients aged 35 years and older with an incidental thyroid nodule equal to or greater than 1.[address], MRI or extrathyroidal US, further evaluation with dedicated thyroid US is recommended for patients with normal life expectancy and without comorbidities. For smaller nodules without suspicious features, no further evaluation or follow up is recommended. REFERENCES: Lisa Sandra et al. Guidelines for Management of Incidental Pulmonary Nodules Detected on CT Images: From the Fleischner Society 2017. Radiology. 2017;284(1):228-243. Head MRI 10/18/24 16:17 IMPRESSION: 1. No acute diffusion abnormality or infarct. 2. Mild cerebral atrophy. 3. Moderate T2 and FLAIR signal hyperintensities in the subcortical white matter, predominantly the frontal and parietal lobes. This can be seen with small vessel change, diabetes, hypertension, migraines. 4. No prior infarct. Laboratory Results WBC 9.40 10^3/uL (3.29-11.43) 10/18/24 04:59 RBC 4.52 10^6/uL (3.85-5.65) 10/18/24 04:59 Hgb 13.40 g/dL (11.27-16.99) 10/18/24 04:59 Hct 43.0 % (36-47) 10/18/24 04:59 MCV 95.1 fl (85-98) 10/18/24 04:59 MCH 29.6 pg (27-33) 10/18/24 04:59 MCHC 31.2 g/dL (30-55) 10/18/24 04:59 RDW 13.8 % (12.1-15.1) 10/18/24 04:59 Plt Count 190 10^3/cmm (157-399) 10/18/24 04:59 MPV 10.4 fL (7.4-10.4) 10/18/24 04:59 Neut % (Auto) 62.2 % 10/18/24 04:59 Lymph % (Auto) 26.5 % 10/18/24 04:59 [place] % (Auto) 7.4 % 10/18/24 04:59 Eos % (Auto) 3.1 % 10/18/24 04:59 Baso % (Auto) 0.4 % 10/18/24 04:59 Neut # (Auto) 5.84 10^3/uL (1.8-7.7) 10/18/24 04:59 Lymph # (Auto) 2.5 10^3/uL (0.8-4.8) 10/18/24 04:59 [place] # (Auto) 0.7 10^3/uL (0.2-0.9) 10/18/24 04:59 Eos # (Auto) 0.3 10^3/uL (0.0-0.8) 10/18/24 04:59 Baso # (Auto) 0.0 10^3/uL (0.0-0.1) 10/18/24 04:59 Nucleated RBC % (auto) 0 % 10/18/24 04:59 Nucleated RBCs # 0.0 /100WBC 10/18/24 04:59 PT 13.20 SECONDS (12.1-14.9) 10/17/24 12:50 INR 0.94 (0.8-1.2) 10/17/24 12:50 APTT 25.6 SECONDS (23.9-36.7) 10/17/24 12:50 Sodium 138 mmol/L (136-145) 10/18/24 04:59 Potassium 4.1 mmol/L (3.5-5.1) 10/18/24 04:59 Chloride 103 mmol/L (98-107) 10/18/24 04:59 Carbon Dioxide 24 mmol/L (22-29) 10/18/24 04:59 Anion Gap 15.1 (5-19) 10/18/24 04:59 BUN 9 mg/dL (6-20) 10/18/24 04:59 Creatinine 0.7 mg/dL (0.5-0.9) 10/18/24 04:59 GFR Calculation 86.9 mL/min (90-130) L 10/18/24 04:59 Glucose 128 mg/dL (65-115) H 10/18/24 04:59 POC Glucose 131 mg/dL (70-110) H 10/18/24 10:15 Estimat Average Glucose 143 10/17/24 12:50 Hemoglobin A1c 6.6 % (4.0-6.0) H 10/17/24 12:50 Calculated Osmolality 286 mOsm/kg (285-295) 10/18/24 04:59 Lactic Acid 1.6 mmol/L (0.5-2.2) 10/17/24 16:49 Calcium 11.0 mg/dL (8.5-10.5) H 10/18/24 04:59 Phosphorus 2.5 mg/dL (2.5-4.5) 10/18/24 04:59 Magnesium 2.1 mg/dL (1.7-2.3) 10/18/24 04:59 Total Bilirubin 0.2 mg/dL (0.15-1.2) 10/18/24 04:59 AST 10 U/L (0-32) 10/18/24 04:59 ALT 10 U/L (0-33) 10/18/24 04:59 Alkaline Phosphatase 104 U/L (35-105) 10/18/24 04:59 Troponin T Baseline < 6 ng/L (0-10) 10/17/24 12:50 Troponin T 120 Minute < 6.0 ng/L (0-10) 10/17/24 14:44 Delta Troponin T 0 ABS# (0-10) 10/17/24 14:44 Troponin T Hi Sens 6Hr < 6.0 ng/L (0-10) 10/17/24 18:13 Troponin T Hi Sens 6Hr Delta 0 ng/L (0-12) 10/17/24 18:13 C-Reactive Protein 10.1 mg/L (0.0-4.9) H 10/17/24 12:50 Total Protein 6.7 g/dL (6.6-8.7) 10/18/24 04:59 Albumin 3.7 g/dL (3.5-5.2) 10/18/24 04:59 Globulin 3.0 g/dL (1.3-4.6) 10/18/24 04:59 Triglycerides 150 mg/dL (0-150) 10/17/24 12:50 Cholesterol 139 mg/dL (0-200) 10/17/24 12:50 LDL Cholesterol, Calc 70 mg/dL (50-129) 10/17/24 12:50 HDL Cholesterol 39 mg/dL (60-100) L 10/17/24 12:50 LDL/HDL Ratio 1.79 RATIO (0.00-3.22) 10/17/24 12:50 Cholesterol/HDL Ratio 3.56 mg/dL (0.0-4.40) 10/17/24 12:50 Procalcitonin 0.04 ng/mL (0-0.5) 10/17/24 12:50 TSH 1.34 uIU/mL (0.27-4.20) 10/17/24 12:50 Urine Color Yellow (Yellow) 10/17/24 13:40 Urine Appearance Clear (CLEAR) 10/17/24 13:40 Urine pH 6.0 (5-7) 10/17/24 13:40 Ur Specific [place] 1.013 (1.005-1.030) 10/17/24 13:40 Urine Protein Negative (Negative) 10/17/24 13:40 Urine Glucose (UA) Negative (Normal) 10/17/24 13:40 Urine Ketones Negative (Negative) 10/17/24 13:40 Urine Blood Negative (Negative) 10/17/24 13:40 Urine Nitrate Negative (Negative) 10/17/24 13:40 Urine Bilirubin Negative (Negative) 10/17/24 13:40 Urine Urobilinogen 0.2 mg/dL (Negative) 10/17/24 13:40 Ur Leukocyte Esterase Trace (Negative) A 10/17/24 13:40 Urine RBC 0-2 /hpf (0-2) 10/17/24 13:40 Urine WBC 6-10 /hpf (0-5) 10/17/24 13:40 Ur Squamous Epith Cells 6-10 /hpf (0-5) 10/17/24 13:40 Amorphous Sediment Not Reportable 10/17/24 13:40 Urine Bacteria 1+ /hpf (NONE) H 10/17/24 13:40 Hyaline Casts 0-4 /lpf H 10/17/24 13:40 Urine Opiates Screen Negative ng/mL (Negative) 10/17/24 13:40 Ur Barbiturates Screen Negative ng/mL (Negative) 10/17/24 13:40 Ur Phencyclidine Scrn Negative ng/mL (Negative) 10/17/24 13:40 Ur Amphetamines Screen Negative ng/mL (Negative) 10/17/24 13:40 U Benzodiazepines Scrn Negative ng/mL (Negative) 10/17/24 13:40 Urine Cocaine Screen Negative ng/mL (Negative) 10/17/24 13:40 U Marijuana (THC) Screen Negative ng/mL (Negative) 10/17/24 13:40 Group A Strep Rapid Negative (Negative) 10/17/24 17:25 Vitals Last Vital Signs Temp 98.8 F 10/18/24 11:00 Pulse 69 10/18/24 11:00 Resp 17 10/18/24 11:00 BP 148/82 10/18/24 11:00 Pulse Ox 94 10/18/24 11:00 O2 Del Method Room Air 10/18/24 11:00 Discharge Plan Discharge Patient Disposition: Home Condition: Stable Prescriptions: New azithromycin 250 mg Tablet 500 mg PO DAILY 2 Days Qty: 4 0RF clopidogrel 75 mg Tablet 75 mg PO DAILY 30 Days Qty: 30 0RF fluconazole [Diflucan] 100 mg tablet 100 mg PO DAILY 7 Days Qty: 7 0RF Continued fluticasone propionate 50 mcg/actuation spray,suspension 2 spray INTRANASAL DAILY PRN (Reason: Allergy Symptoms) (DME) OneTouch Ultra Test Strip See Rx Instructions .Route Qty: 100 0RF Rx Instructions: As directed tiotropium bromide [Spiriva with HandiHaler] 18 mcg capsule, w/inhalation device 1 cap inhalation DAILY Qty: 60 5RF Rx Instructions: puncture 1 cap using device; one dose = 2 inhalations topiramate [Topamax] 50 mg tablet 50 mg PO .evening Qty: 30 6RF Rx Instructions: Take one tablet every evening trazodone 150 mg tablet 150 mg PO BEDTIME PRN (Reason: insomnia) Qty: 60 3RF Rx Instructions: May take one tablet at bedtime as needed for sleep, may repeat dose in 1 hour if not asleep ziprasidone HCl [Geodon] 80 mg capsule 80 mg PO BID Qty: 60 6RF Rx Instructions: Take one capsule in am and evening with supper (500 calories each meal) (DME) Left Thumb Spica Brace See Rx Instructions .Route .MEDSUPPLY Qty: 1 0RF Rx Instructions: As directed (DME) blood sugar diagnostic Strip See Rx Instructions .ROUTE .MEDSUPPLY Qty: 100 0RF Rx Instructions: three times a week (DME) Lancets See Rx Instructions .Route .MEDSUPPLY Qty: 100 0RF Rx Instructions: Use daily for blood glucose testing glipizide 5 mg tablet extended release 24hr See Rx Instructions .ROUTE .COMPLEX Qty: 30 0RF Dose Instruction: TAKE 1 TABLET BY MOUTH EVERY DAY Rx Instructions: TAKE 1 TABLET BY MOUTH EVERY DAY (DME) OneTouch Ultra Test Strip See Rx Instructions .ROUTE .COMPLEX Qty: 100 0RF Dose Instruction: USE DIRECTED Rx Instructions: USE DIRECTED simvastatin 20 mg tablet See Rx Instructions .ROUTE .COMPLEX Qty: 90 1RF Dose Instruction: TAKE 1 TABLET BY MOUTH EVERY DAY Rx Instructions: TAKE 1 TABLET BY MOUTH EVERY DAY Discontinued ibuprofen [Advil] 200 mg Tablet 800 mg PO Q6H PRN (Reason: Fever Or Pain) Ozempic 0.25 mg or 0.5 mg (2 mg/3 mL) pen injector 0.25 mg SUBCUT Q7D Discharge Order = DC NOW: Discharge Order (Routine); Ordered 10/18/24 Ordered By: John Paul Benoit Referrals: Stephanie Eric MD [Physician, Neurology] - 10/26/24 12:00 pm Karmen Oliver MD [Physician, Interventional Pulmonology] - 1 month Referral Note: lung nodules We have notified your physician's clinic of the need for a follow-up appointment to be scheduled. If you have not heard from them within the next 2 business days, please call them directly. Freddy Mallory MD [Physician, Ear, Nose, Throat] - 11/06/24 8:00 am Referral Note: thyroid nodule Marga Higgins DO [Primary Care Provider, STRAIN TECHNICIAN] - 10/26/24 3:45 pm Rambo Greene MD [Physician, Cardiology] - 1 week Referral Note: chest pain We have notified your physician's clinic of the need for a follow-up appo intment to be scheduled. If you have not heard from them within the next 2 business days, please call them directly. Austin Moreno MD [Physician, Endocrinology] - 10/25/24 12:00 pm Referral Note: We have notified your physician's clinic of the need for a follow-up appointment to be scheduled. If you have not heard from them within the next 2 business days, please call them directly. Discharge Diet: Cardiac Discharge Activity: Resume usual activity Patient Instructions: Azithromycin (By mouth), Fluconazole (By mouth) (Diflucan), Clopidogrel (By mouth), Aspiration Precautions (GEN), Opioid Safety, Stroke Stoplight, Patient Portal & Anaid Instructions, Sore Throat - Adult Activity Restrictions/Additional Instructions: - Hemoglobin A1c 6.6, follow-up primary care provider - If any strokelike symptoms physical emergency room - Please follow-up with neurology - For enlarged thyroid please follow-up with Dr. Cobian - For hypercalcemia please call Dr. Moreno -if chest pain go to emergency room Discharge Attestations Time Spent in Discharge Care*: greater than 30 min Quality Metrics Clinical Quality Measures [ No reported AMI, CVA or VTE this stay] Coding Level of Care Code 49536 Total time (in minutes) for Discharge: 45 Diagnoses Dysarthria R47.1 Tongue swelling R22.0 Sore throat J02.9
[2024-10-18 14:18] VITALS: BP 140/80; PULSE 68; O2SAT 95
--- NOTE | 2024-10-18 16:17 | MR_ITS ---
WS: [id number] MRI BRAIN WITHOUT CONTRAST HISTORY: cva COMPARISON: CT head 10/17/2024 TECHNIQUE: Diffusion imaging, multiplanar T1, T2 and FLAIR imaging obtained. No evidence for acute infarct or hemorrhage. Raymond-white matter differentiation is normal. Normal hippocampal formations. Mild cerebral atrophy. Moderate bilateral T2 and FLAIR signal hyperintensities throughout the brain. Predominantly within the frontal and parietal lobes. No large territory infarct. Ventricles and extra-axial spaces are normal. No inferior displacement of cerebellar tonsils. The sella turcica and pituitary gland are unremarkable. Dural venous sinuses and [place] demonstrate no abnormality on this unenhanced studies. Paranasal sinuses: Mild mucoperiosteal thickening in the ethmoid air cells. No air-fluid levels. Mastoid air cells: Normal. Calvarium and scalp: Intact. MR/MR head wo con* [id number] IMPRESSION: 1. No acute diffusion abnormality or infarct. 2. Mild cerebral atrophy. 3. Moderate T2 and FLAIR signal hyperintensities in the subcortical white [place], predominantly the frontal and parietal lobes. This can be seen with small v essel change, diabetes, hypertension, migraines. 4. No prior infarct.
== END 2024-10-18 14:19 | disposition home or self-care (01) | DRG 93 ==
LOC: ER 13:11 → MEDSURG 14:31
PROVIDERS: Admitting Provider Family Medicine; Emergency Provider Emergency Medicine; PCP Family Medicine; Visit Provider Family Medicine
DX: R47.1 Dysarthria and anarthria (principal); R47.81 Slurred speech; R13.10 Dysphagia, unspecified; K14.8 Other diseases of tongue; J02.9 Acute pharyngitis, unspecified; E11.9 Type 2 diabetes mellitus without complications; Z85.72 Personal history of non-Hodgkin lymphomas; Z92.21 Personal history of antineoplastic chemotherapy; E78.5 Hyperlipidemia, unspecified; J44.9 Chronic obstructive pulmonary disease, unspecified; Z79.02 Long term (current) use of antithrombotics/antiplatelets; Z79.891 Long term (current) use of opiate analgesic; F17.210 Nicotine dependence, cigarettes, uncomplicated; K21.9 Gastro-esophageal reflux disease without esophagitis; G62.2 Polyneuropathy due to other toxic agents; T45.1X5S Adverse effect of antineoplastic and immunosuppressive drugs, sequela; Z87.820 Personal history of traumatic brain injury; F43.12 Post-traumatic stress disorder, chronic; F41.0 Panic disorder [episodic paroxysmal anxiety]; F60.3 Borderline personality disorder; F25.0 Schizoaffective disorder, bipolar type; E20.9 Hypoparathyroidism, unspecified
CPT/HCPCS: 36415; 36416; 70450; 70491; 70551; 71045; 80053; 80061; 80306; 81001; 82962; 83036; 83605; 83735; 84100; 84145; 84443; 84484; 85025; 85610; 85730; 86140; 87081; 87880; 92523; 92610; 93005; 93306; 93880; 94664; 96372; 97110; 97161; 97165; 99214; 99285; J1450; J1650; J1815; J2060; J9999; Q0144

== ENCOUNTER → 2024-10-25 11:40 | Outpatient (BNVA) | payer MEDICAID, SELFPAY ==
[2020-10-03 14:41] VITALS: BP 110/67; BMI 40.1
== END ==
PROVIDERS: PCP Family Medicine; Visit Provider Internal Medicine
DX: E21.0 Primary hyperparathyroidism (principal); E11.69 Type 2 diabetes mellitus with other specified complication; Z09 Encounter for follow-up examination after completed treatment for conditions other than malignant neoplasm
CPT/HCPCS: 99214

== ENCOUNTER → 2024-10-26 11:48 | Outpatient (BNVA) | payer MEDICAID, SELFPAY ==
[2020-10-03 14:41] VITALS: BP 110/67; BMI 40.1
== END ==
PROVIDERS: PCP Family Medicine; Referring Provider Family Medicine; Visit Provider Psychiatry & Neurology Neurology
DX: R47.1 Dysarthria and anarthria (principal); I95.1 Orthostatic hypotension; I65.29 Occlusion and stenosis of unspecified carotid artery
CPT/HCPCS: G0463

== ENCOUNTER 2024-10-27 07:45 | Outpatient (CLI) | payer MEDICAID, SELFPAY ==
[2020-10-03 14:41] VITALS: BP 110/67; BMI 40.1
--- NOTE | 2024-10-27 08:00 | NM_ITS ---
WS: [id number] EXAMINATION: NM parathyroid [id number] ORDER DATE: 10/27/2024 7:50 AM COMPARISON: CT 10/17/2024 and prior parathyroid sestamibi 05/06/2006 HISTORY: hyperparathyroidism TECHNIQUE: Parathyroid scintigraphy with 19.7 mCi of technetium 99m administered. AP and oblique views obtained with and without chin and suprasternal notch markers. Initial and 2 hour delayed imaging acquired. FINDINGS: Normal salivary gland uptake. Normal initial thyroid uptake. Normal thyroid washout on the delayed images. No evidence of retained activity to indicate parathyroid adenoma. No other acute findings NM/NM parathyroid [id number] IMPRESSION: No evidence of parathyroid adenoma
== END 2024-10-27 07:46 | disposition home or self-care (01) ==
LOC: RAD 07:47
PROVIDERS: PCP Family Medicine; Visit Provider Internal Medicine
DX: E21.3 Hyperparathyroidism, unspecified (principal)
CPT/HCPCS: 78070; A9500

== ENCOUNTER → 2024-10-30 14:15 | Outpatient (BNVA) | payer MEDICAID, SELFPAY ==
[2020-10-03 14:41] VITALS: BP 110/67; BMI 40.1
== END ==
PROVIDERS: PCP Family Medicine; Visit Provider Internal Medicine Cardiovascular Disease
DX: R07.89 Other chest pain (principal); Z09 Encounter for follow-up examination after completed treatment for conditions other than malignant neoplasm; E78.5 Hyperlipidemia, unspecified; I67.89 Other cerebrovascular disease; Z79.02 Long term (current) use of antithrombotics/antiplatelets; Z82.49 Family history of ischemic heart disease and other diseases of the circulatory system; F17.200 Nicotine dependence, unspecified, uncomplicated; R07.9 Chest pain, unspecified
CPT/HCPCS: 99204

== ENCOUNTER 2024-11-07 07:21 | Outpatient (CLI) | payer MEDICAID, SELFPAY ==
[2020-10-03 14:41] VITALS: BP 110/67; BMI 40.1
[2024-11-07 07:41] VITALS: BMI 39.6
--- NOTE | 2024-11-07 07:43 | ECG_ITS ---
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 Interpretive Statements Lung unchanged pre/post procedure; Intraprocedure shortess of breath; Symptoms resoled by discharge PROCEDURE: At the baseline, the EKG revealed normal sinus rhythm with normal ST Ts. The baseline heart was 67 bpm with a blood pressue of 116/75 mm of Hg Lexiscan was infused over a period of 20 seconds. A total of 0.4 milligrams of Lexiscan was infused. The stress phase was continued for a total of 5 minutes. Heart rate at the end of the stress phase was 82 bpm with a blood pressure 151/90 mm of Hg. The EKG at the peak infusion revealed no significant changes. Sestamibi was injected 20 seconds after the Lexiscan infusion. Heart rate at the end of the recovery phase was 81 bpm with a blood pressure of 140/88 mm of Hg. CONCLUSION: 1. No significant EKG changes with the LexiScan infusion 2. No LexiScan induced chest pain or cardiac arrhythmia 3. Normal blood pressure and heart rate response 4. Sestamibi/sestamibi perfusion scan pending; see separate report. Electronically Signed On 11-14-2024 10:33:02 CDT by Shobha Rhodes M.D. [email or web address]
--- NOTE | 2024-11-07 07:44 | NMCV_ITS ---
NM jaleesa perf SPECT r/s* [id number] Rolf Rios Age: 54 Gender: F : 1970 Exam Date: 11/07/2024 08:51 Ordering Phys: Mark Montgomery MD ([email or web address]) Technologist: JUDIE Zamarripa Exam Location: [facility] Indications: cp STRESS TEST Please see separate stress test report in [facility] for full findings IMAGE PROTOCOL Rest/Stress 1 Lexiscan Day Radiopharmaceutical Dose (mCi) Administration Site Administered by Rest: Tc-99m 10.5 IV Meghann Brown, PLASTIC INJECTION MOLD MAKER Sestamibi Stress:Tc-99m 32.3 IV Meghann Brown, PLASTIC INJECTION MOLD MAKER Sestamibi Rest: 07-Nov-2024 60 Discovery 630 Stress: 07-Nov-2024 30 Discovery 630 0.4mg Lexiscan. Images obtained in supine and prone position. SPECT RESULTS Technical Quality: Good Raw Data Analysis: Normal Image Corrections: No attenuation or motion correction applied Summed Stress Score: 0 Summed Rest Score: 5 Summed Difference Score: 0 PERFUSION FINDINGS Uniform myocardial tracer uptake. The rest images revealed persistent decreased tracer uptake in the anterior and inferior wall regions. FUNCTIONAL RESULTS (calculated via Gated SPECT) Stress Image LV EF (%): 74 Stress EDV (mL):109 TID: 1.07 Stress ESV (mL):28 FUNCTIONAL FINDINGS: Segmental wall motion analysis revealing no gross wall motion abnormalities IMPRESSIONS 1. Fairly uniform myocardial tracer uptake. No significant perfusion abnormalities 2. Normal LV ejection fraction of 74%. 3. LV wall motion analysis revealing no gross wall motion abnormalities. 4. Normal LV volume No significant coronary ischemia, based on the above findings Dr Shobha Rhodes MD FACC (Electronically Signed) Final Date: 07 November 2024 12:45 S
[2024-11-07] MEDS: ondansetron 2 mg/ML SDV 2 mL 4 MG IVP (09:51)
[2024-11-07 09:58] VITALS: BP 116/75; PULSE 92
== END 2024-11-07 07:22 | disposition home or self-care (01) ==
LOC: CDL 07:23
PROVIDERS: PCP Family Medicine; Visit Provider Internal Medicine Cardiovascular Disease
DX: R07.9 Chest pain, unspecified (principal); I49.8 Other specified cardiac arrhythmias
CPT/HCPCS: 36415; 78452; 93017; 96374; 96375; A9500; J2405; J2785

== ENCOUNTER → 2024-11-08 09:41 | Outpatient (BNVA) | payer MEDICAID, SELFPAY ==
[2020-10-03 14:41] VITALS: BP 110/67; BMI 40.1
== END ==
PROVIDERS: PCP Family Medicine; Visit Provider Internal Medicine
DX: Z09 Encounter for follow-up examination after completed treatment for conditions other than malignant neoplasm (principal); E11.69 Type 2 diabetes mellitus with other specified complication; E21.0 Primary hyperparathyroidism; E16.0 Drug-induced hypoglycemia without coma
CPT/HCPCS: 99214

== ENCOUNTER 2024-11-13 14:49 | Outpatient (CLI) | payer MEDICAID, SELFPAY ==
[2020-10-03 14:41] VITALS: BP 110/67; BMI 40.1
== END 2024-11-13 14:50 | disposition home or self-care (01) ==
LOC: RAD 11-18 10:28
PROVIDERS: PCP Family Medicine
DX: R91.1 Solitary pulmonary nodule (principal); J44.9 Chronic obstructive pulmonary disease, unspecified
CPT/HCPCS: 99204; Q3014

== ENCOUNTER 2024-11-22 06:26 | Outpatient (CLI) | payer MEDICAID, SELFPAY ==
[2020-10-03 14:41] VITALS: BP 110/67; BMI 40.1
== END 2024-11-22 06:27 | disposition home or self-care (01) ==
LOC: RT 06:27
PROVIDERS: PCP Family Medicine
DX: J43.1 Panlobular emphysema (principal)
CPT/HCPCS: 94010; 94726; 94729

== ENCOUNTER 2024-11-23 15:19 | Outpatient (CLI) | payer MEDICAID, SELFPAY ==
[2020-10-03 14:41] VITALS: BP 110/67; BMI 40.1
--- NOTE | 2024-11-23 15:30 | CT_ITS ---
WS: [id number] CT chest wo con [id number] HISTORY: right lung nodule TECHNIQUE: Axial imaging performed through the thorax. Coronal and sagittal reformats are submitted. All CT scans at [facility] use at least one of these dose optimization techniques: automated exposure control; mA and/or kV adjustment per patient size (includes targeted exams where dose is matched to clinical indication); or iterative reconstruction. CONTRAST: None DLP: 539.72 mGy.cm COMPARISON: 07/23/2022, 05/31/2023, 04/27/2024 Lungs and central airway: Mild pulmonary hyperinflation. There is several small pulmonary nodules and subpleural nodules. The largest is a pleural-based nodule measuring 8 mm at the LEFT lung base which has been stable since at least 07/23/2022. There are a few additional very tiny nodules at the lung bases. 4 mm nodule appears to be along the RIGHT fissure. Stable RIGHT upper lobe pulmonary nodule since 07/23/2022. No new pulmonary nodule or mass. No endobronchial lesions. Single bronchus with atelectasis medial RIGHT upper lobe. Pleura: Normal. No pleural effusion. Heart and pericardium: Normal size heart with no pericardial effusion. Mediastinum and anthony: No mediastinum or hilar adenopathy. Vessels: Minimal atherosclerosis aorta. Normal size pulmonary artery. Chest wall and lower neck: Mild thyromegaly. Upper abdomen: Small hiatal hernia. No adrenal mass. Mild hepatic steatosis. Osseous structures: Minimal thoracic spondylosis. CT/CT chest wo con [id number] IMPRESSION: 1. Numerous bilateral pulmonary nodules are stable. Largest 8 mm at the LEFT l edison base. Previously described nodule at the RIGHT apex is also stable since . No follow-up necessary. 2. Emphysema. 3. No adenopathy.
== END 2024-11-23 15:20 | disposition home or self-care (01) ==
LOC: RAD 15:19
PROVIDERS: PCP Family Medicine
DX: R91.1 Solitary pulmonary nodule (principal); E01.0 Iodine-deficiency related diffuse (endemic) goiter; K44.9 Diaphragmatic hernia without obstruction or gangrene; K76.0 Fatty (change of) liver, not elsewhere classified; M47.814 Spondylosis without myelopathy or radiculopathy, thoracic region; J43.9 Emphysema, unspecified
CPT/HCPCS: 71250

== ENCOUNTER 2024-12-08 08:58 | Day surgery (SDC) | payer MEDICAID, SELFPAY ==
[2020-10-03 14:41] VITALS: BP 110/67; BMI 40.1
[2024-12-08] VITALS (11 sets, daily range): BP systolic 85–136; BP diastolic 55–75; PULSE 60–85; RESP 10–18; TEMP 36.1–36.5; O2SAT 93–97; BMI 39.9
--- NOTE | 2024-12-08 09:23 | P.ANESASSM_ITS ---
Pre-Anesthetic Assessment Height/Weight: Height 5 ft 8 in Preop Diagnosis: De Quervain's Operation Date: 12/08/24 11:20 Proposed Procedures p LEFT Wrist De Quervain's Release(Left) - Pierce Boggsatt, DO Was Beta Bell taken within 24 hours: N/A Was Clonidine taken within 24 hours: N/A Social Tobacco and No alcohol Exam alert, oriented x 3 and regular rate & rhythm Airway Submandibular: within normal limits Cervical ROM: within normal limits Mallampati: Class III Comments: Comments: Edentulous Anesthetic Plan ASA status: 3 Anesthesia: MAC Other: No prior issues with anesthesia N.p.o. since yesterday evening Current smoker, COPD Type 2 diabetes on Ozempic. Last taken 11/26/2024 Schizophrenia history Chronically elevated calcium levels from hyperparathyroidism. This has been stable for quite some time Labs reviewed from October and acceptable for procedure Plan for [facility] Medications/Allergies Home Medications ?Medication ?Instructions ?Recorded ?Confirmed ?Last Taken ?Type fluticasone propionate 50 2 spray intranasal DAILY PRN 05/11/19 12/08/24 1 Year Ago History mcg/actuation nasal Allergy Symptoms ~12/08/23 spray,suspension blood sugar diagnostic (OneTouch #100 ea 01/30/2111/03 Unknown Rx Ultra Test strips) blood sugar diagnostic #100 ea 08/12/21 11/13/24 Un known Rx Lancets #100 ea 04/14/23 11/13/24 Un known Rx tiotropium bromide 18 mcg capsule 1 cap inhalation JAILENE LY #60 06/14/23 12/07/24 12/06/24 Rx with inhalation device (Spiriva inhalations with HandiHaler) blood sugar diagnostic (OneTouch #100 ea 04/11/2411/03 Unknown Rx Ultra Test strips) Left Thumb Spica Brace #1 ea 08/15/24 11/13/24 Unkn own Rx topiramate 50 mg tablet (Topamax) 50 mg PO .evening #3 0 tabs 08/18/24 12/07/24 12/06/24 Rx ziprasidone HCl 80 mg capsule 80 mg PO BID #60 caps 12/07/24 12/07/24 Rx (Geodon) clopidogrel 75 mg tablet 75 mg PO DAILY #60 tabs 07/11/2712/07/24 11/23/24 Rx nicotine (polacrilex) 2 mg buccal 2 mg buccal .Q2-3H P RN nicotine 11/13/24 12/08/24 2 Weeks Ago Rx lozenge cravings #108 ea ~11/23/24 trazodone 150 mg tablet 100 mg PO BEDTIME PRN insomn ia 11/13/24 12/07/24 11/30/24 History semaglutide 0.25 mg or 0.5 mg (2 0.25 mg (0.368 mL) POWELL BCUT Q7D #3 mL 11/27/24 12/08/24 11/26/24 Rx mg/3 mL) subcutaneous pen injector (Ozempic) simvastatin 20 mg tablet 20 mg PO DAILY 12/07/2407/2812/07/24 History Allergies Allergy/AdvReac Type Severity Reaction Status Date / Time acetaminophen (From Vicodin) Allergy ALGY-Bliste Verified 12/08/24 09:14 r aspirin Allergy ALGY-Hives Verified 12/08/24 09:14 benzalkonium chloride (From Allergy ALGY-Hives Verified 12/08/24 09:14 Germ Bloc) chlorpromazine (From Allergy ALGY-Hives Verified 12/08/24 09:14 Thorazine) citalopram (From Celexa) Allergy ALGY-Hives Verified 12/08/24 09:14 codeine Allergy ALGY-Rash Verified 12/08/24 09:14 fluoxetine (From Prozac) Allergy ALGY-Hives Verified 12/08/24 09:14 hydrocodone (From Vicodin) Allergy ALGY-Bliste Verified 12/08/24 09:14 r latex Allergy ALGY-Bliste Verified 12/08/24 09:14 r paroxetine (From Paxil) Allergy ADR-Drowsy Verified 12/08/24 09:14 Penicillins Allergy ALGY-Anaphy Verified 12/08/24 09:14 laxis Sulfa (Sulfonamide Allergy ALGY-Difficulty Verified 12/08/24 09:14 Antibiotics) Breathing venlafaxine (From Effexor) Allergy ADR-Headach Verified 12/08/24 09:14 e [facility] Anesthesia Medical History (Updated 11/13/24 @ 14:36 by JONES Hammond) Primary hyperparathyroidism Screening for breast cancer Psychiatric care Psychiatric care Nicotine dependence, cigarettes, uncomplicated Peripheral neuropathy due to chemotherapy GERD (gastroesophageal reflux disease) Lymphoma Tobacco abuse Family history of abdominal aortic aneurysm (AAA) Type 2 diabetes mellitus with other specified complication Personal history of traumatic brain injury Chronic post-traumatic stress disorder Panic disorder with agoraphobia Borderline personality disorder Schizoaffective disorder, bipolar type Surgical History Hx of tonsillectomy Hx of tubal ligation Hx of lymph node biopsy Hx of section Family History Father CAD (coronary artery disease) Other Alzheimer disease Aneurysm of abdominal aorta Cancer Diabetes Heart murmur Multiple personality disorder Stroke Social History (Updated 11/13/24 @ 14:21 by JONES Hammond) Smoking and tobacco/nicotine status: current every day tobacco/nicotine user (3/4 of a ppd x 35 years. No vapping) cigarettes Years cigarettes smoked: 35 Quit status (tobacco/nicotine): has tried quititng Second hand smoke exposure: Yes (mother) Alcohol intake: former Substance/Drug Use: never Adopted: No Caregiver/support person: No Lives independently: Yes (mother lives with her) Household members: family and friend(s) Housing: Apartment Marital status: Number of children: 3 Number of grandchildren: 11 Highest education level completed: 8th Grade service: No Current occupational status: disabled Pets and animals: No Leisure activites: games, fishing and other Leisure activities details: camping, sol Sexually active: No Do you think of yourself as: Straight/Heterosexual Current gender identity: Female Yin/Pentecostalism: Zoroastrianism Special yin needs: No Agree to transfusion: Yes Female Reproductive History Para: 3 Data Anesthesia Cardiac Studies: Echocardiogram 10/17/24 Sestamibi Stress Test (Cardiology) 11/07
--- NOTE | 2024-12-08 10:15 | SUR.PREOP ---
acetaminophen stopped per Dr request. patient stated she was not allergic to acetaminophen but to tylenol with codeine. allergy was changed in patient history/summary to NO acetaminophen allergy
--- NOTE | 2024-12-08 10:16 | P.HP_ITS ---
Same Day Surgery H&P Indication for Procedure/HPI DATE OF PROCEDURE: December 08, 2024 CHIEF COMPLAINT/INDICATIONFOR SURGICAL PROCEDURE: Left wrist de Quervain's disease PREOP DIAGNOSIS: Left wrist de Quervain's disease PLANNED PROCEDURE: Operation Date: 12/08/24 11:20 Proposed Procedures p LEFT Wrist De Quervain's Release(Left) - Pierce Iqbal, DO Medications/Allergies* Home Medications ?Medication ?Instructions ?Recorded ?Confirmed ?Type fluticasone propionate 50 2 spray intranasal DAILY PRN 05/11/19 12/08/24 History mcg/actuation nasal Allergy Symptoms spray,suspension trazodone 150 mg tablet 100 mg PO BEDTIME PRN insomn ia 11/13/24 12/07/24 History simvastatin 20 mg tablet 20 mg PO DAILY 12/07/2407/28 History Allergies/Adverse Reactions Allergy/AdvReac Type Severity Reaction Status Date / Time aspirin Allergy ALGY-Hives Verified 12/08/24 09:14 benzalkonium chloride (From Allergy ALGY-Hives Verified 12/08/24 09:14 Germ Bloc) chlorpromazine (From Allergy ALGY-Hives Verified 12/08/24 09:14 Thorazine) citalopram (From Celexa) Allergy ALGY-Hives Verified 12/08/24 09:14 codeine Allergy ALGY-Rash Verified 12/08/24 09:14 fluoxetine (From Prozac) Allergy ALGY-Hives Verified 12/08/24 09:14 hydrocodone (From Vicodin) Allergy ALGY-Bliste Verified 12/08/24 09:14 r latex Allergy ALGY-Bliste Verified 12/08/24 09:14 r paroxetine (From Paxil) Allergy ADR-Drowsy Verified 12/08/24 09:14 Penicillins Allergy ALGY-Anaphy Verified 12/08/24 09:14 laxis Sulfa (Sulfonamide Allergy ALGY-Difficulty Verified 12/08/24 09:14 Antibiotics) Breathing venlafaxine (From Effexor) Allergy ADR-Headach Verified 12/08/24 09:14 e Current Medications: Generic Name Dose Route Start Last Admin Trade Name Freq PRN Reason Stop Dose Admin Sodium Chloride 1,000 mls @ 30 mls/hr 12/08/24 09:15 12/08/24 10:04 Sodium Chloride 0.9% IV 12/09/24 09:14 30 mls/hr .Q24H SAVITA Administration Pertinent History/Comorbid Conditions* Medical History (Updated 11/13/24 @ 14:36 by JONES Hammond) Primary hyperparathyroidism Screening for breast cancer Psychiatric care Psychiatric care Nicotine dependence, cigarettes, uncomplicated Peripheral neuropathy due to chemotherapy GERD (gastroesophageal reflux disease) Lymphoma Tobacco abuse Family history of abdominal aortic aneurysm (AAA) Type 2 diabetes mellitus with other specified complication Personal history of traumatic brain injury Chronic post-traumatic stress disorder Panic disorder with agoraphobia Borderline personality disorder Schizoaffective disorder, bipolar type Surgical History (Updated 05/12/19 @ 06:53 by JONES Dozier) Hx of tonsillectomy Hx of tubal ligation Hx of lymph node biopsy Hx of section Family History (Updated 10/30/24 @ 15:24 by Mark Montgomery MD) Multiple personality disorder Diabetes CAD (coronary artery disease) Father Aneurysm of abdominal aorta Alzheimer disease Heart murmur Cancer Stroke Social History Smoking and tobacco/nicotine status: current every day tobacco/nicotine user (3/4 of a ppd x 35 years. No vapping) cigarettes Years cigarettes smoked: 35 Quit status (tobacco/nicotine): has tried quititng Second hand smoke exposure: Yes (mother) Alcohol intake: former Substance/Drug Use: never Adopted: No Caregiver/support person: No Lives independently: Yes (mother lives with her) Household members: family and friend(s) Housing: Apartment Marital status: Number of children: 3 Number of grandchildren: 11 Highest education level completed: 8th Grade service: No Current occupational status: disabled Pets and animals: No Leisure activites: games, fishing and other Leisure activities details: camping, sol Sexually active: No Do you think of yourself as: Straight/Heterosexual Current gender identity: Female Yin/Islam: Christian Special yin needs: No Agree to transfusion: Yes Pertinent Exam Findings alert, oriented x 3, operative site marked and procedure specific exam findings Please refer to detailed orthopedic examination on 10/17/2024 listed below: Left Hand Exam: -Negative Tinel's over carpal -First dorsal compartment TTP -Positive Malu's test -Mild IP joint tenderness to palpation -Stable stress testing of PIP and MP joint of thumb -Mild CMC TTP -Negative CMC grind test Recommendations Risks and benefits of procedure reviewed and Patient/family agree to proceed Surgery/Procedure today Other Plans: Plan to proceed to the OR today for left wrist de Quervain's release. Patient understands consents procedure risk benefits complication alternatives surgery, understanding risk of surgery and through shared decision making patient like to proceed with surgical intervention all questions answered at this time. Coding Level of Care Code Acute Code for [facility] Fwpaige
[2024-12-08] MEDS: ROPivacaine 0.5% SDV 30 mL 150 MG INJECTION (10:57)
--- NOTE | 2024-12-08 11:30 | P.BOP_ITS ---
Date of Procedure: 12/08/2024 Surgeon: Pierce Iqbal DO Maintenance Dispatcher(s): None Procedure(s) performed: Left wrist de Quervain's release Findings of the procedure(s): Patient underwent procedure as planned without issues or complications taken to recovery in stable condition. Estimated blood loss: 3 mL Specimen(s) removed: None Post-operative diagnosis: Left wrist de Quervain's disease
--- NOTE | 2024-12-08 11:32 | P.OP_ITS ---
Operative Report Date of procedure: December 08, 2024 Surgeon: Pierce Iqbal DO Procedure: Preop Diagnosis: Left wrist de Quervain's disease Post-op diagnosis: Same Procedure done: 1. Left wrist de Quervain's release Surgeon: Pierce Iqbal DO Anesthesia: MAC (Local) Estimated blood loss: 3 mL Tourniquet time 6 minutes IV fluids: See anesthesia record Complications: None Findings: See operative report narrative Condition: stable Disposition: same day Brief History: Patient is a pleasant 54 year-old female with left wrist de Quervain's. Patient has been worked up in the outpatient setting findings and physical examination consistent with this. We detailed out patient's risk benefits complication alternatives with surgical and nonsurgical treatment options. Through shared decision making, patient agrees to proceed with surgical intervention of the left wrist de Quervain's. Patient understands and agrees with current plan. All questions answered. Patient elects to proceed with surgical intervention for left wrist de Quervain's release. Procedure: Patient seen and evaluated in the preoperative holding area. Consent was reviewed and signed with patient. Correct extremity was marked. Patient was seen evaluated by the anesthesia department once cleared for surgery was brought back to the operative suite. Patient was kept on [facility] in supine position all bony prominences were well-padded patient properly secured to the bed. Left upper extremity was then placed onto an armboard. A nonsterile tourniquet was applied to the left upper arm. Patient underwent anesthesia per the anesthesia department. Patient's left upper extremity was then prepped and draped in standard orthopedic fashion. Final timeout performed. Patient received appropriate preoperative antibiotics. Under sterile aseptic technique patient received local anesthesia over the preplanned left de Quervain's incision site. Esmarch was used to exsanguinate the left upper extremity and tourniquet was insufflated to 250 mmHg. I then proceeded with the Left wrist de Quervain's release.? I marked out the first dorsal compartment a small longitudinal incision was made directly over this.? Sharp scalpel incision was made through skin only switch to Littler dissection scissors and protected the superficial branch of the radial nerve as well as neurovascular structures.? I then had direct visualization of the first dorsal compartment sharp scalpel incision I used to then simply incise the first dorsal compartment I switched dissection scissors to release this both proximally and distally to its entirety the EPB tendon did have a subsheath which was subsequently released as well.? I then subsequently used a rag nail and mobilized each tendon that verify no areas of entrapment and this completed the Left wrist de Quervain's release. Wound was then thoroughly irrigated. Tourniquet deflated. Hemostasis satisfactory with bipolar electrocautery. I then closed the incision with inte rrupted nylon stitches. Xeroform 4 x 4's and a bulky soft dressing was applied to the left upper extremity. Patient was then awakened from anesthesia and taken to PACU in stable condition. Patient tolerated procedure without complications. Disposition: Patient taken to PACU in stable condition recovering well. Dressing clean dry and intact. Patient will receive appropriate discharge instructions as well as pain medication postoperatively. Patient to follow-up with me in the office in 2 weeks. They understand they may be weightbearing as tolerated to the left hand. Patient should keep incision clean dry and intact. Patient understands if any questions or concerns may contact the office.
--- NOTE | 2024-12-08 12:03 | SUR.PHASEI ---
11:30 ROM ,CAP REFILL AND SENSATION TO LEFT HAND, FINGERS.
--- NOTE | 2024-12-08 13:05 | ANE.PACU2 ---
Inpatient post-anesthesia follow up: Airway intact: Yes Vital signs: Temperature 97.5 F Pulse Rate 65 Respiratory Rate 16 Blood Pressure 120/74 Pulse Oximetry 97 Oxygen Delivery Me thod Room Air Oxygen Flow Rate Fraction of Inspir ed Oxygen Hydration adequate: Yes Nausea and vomiting: No Pain level: 1 Mental status: Baseline
== END 2024-12-08 13:05 | disposition home or self-care (01) ==
PROVIDERS: PCP Family Medicine; Visit Provider Student in an Organized Health Care Education/Training Program
PROC: (CPT 25000; principal; 2024-12-08 11:10)
DX: M65.4 Radial styloid tenosynovitis [de Quervain] (principal); E11.9 Type 2 diabetes mellitus without complications; F17.210 Nicotine dependence, cigarettes, uncomplicated; E21.3 Hyperparathyroidism, unspecified; G62.89 Other specified polyneuropathies; K21.9 Gastro-esophageal reflux disease without esophagitis; C85.90 Non-Hodgkin lymphoma, unspecified, unspecified site; F43.12 Post-traumatic stress disorder, chronic; J44.9 Chronic obstructive pulmonary disease, unspecified
CPT/HCPCS: 25000; 36416; 82962; J0131; J1885; J2704; J2795; J3010; J3490; J7030; J9999

== ENCOUNTER → 2024-12-22 10:36 | Outpatient (BNVA) | payer MEDICAID, SELFPAY ==
[2020-10-03 14:41] VITALS: BP 110/67; BMI 40.1
== END ==
PROVIDERS: PCP Family Medicine; Visit Provider Physician Assistant
DX: Z98.890 Other specified postprocedural states (principal)
CPT/HCPCS: 99024

== ENCOUNTER → 2024-12-29 10:20 | Outpatient (BNVA) | payer MEDICAID, SELFPAY ==
[2020-10-03 14:41] VITALS: BP 110/67; BMI 40.1
== END ==
PROVIDERS: PCP Family Medicine; Visit Provider Internal Medicine
DX: E11.69 Type 2 diabetes mellitus with other specified complication (principal); Z09 Encounter for follow-up examination after completed treatment for conditions other than malignant neoplasm; E21.0 Primary hyperparathyroidism; E16.0 Drug-induced hypoglycemia without coma; Z87.440 Personal history of urinary (tract) infections
CPT/HCPCS: 99214